=== PATIENT | female | born 1970 | race Caucasian/White ===

== ENCOUNTER → 2022-01-03 13:08 | Outpatient (BNVA) | payer MEDICAID, SELFPAY | PROVIDERS: PCP Internal Medicine; Visit Provider Physician Assistant Surgical ==

== ENCOUNTER → 2022-01-19 11:05 | Outpatient (BNVA) | payer MEDICAID, SELFPAY | PROVIDERS: PCP Internal Medicine; Visit Provider Surgery | DX: Z13.89 Encounter for screening for other disorder (principal) ==

== ENCOUNTER 2022-01-27 09:19 | Outpatient (REF) | payer MEDICAID, SELFPAY ==
--- NOTE | ~2022-01-27 | XR_ITS ---
EXAMINATION: XR chest 2V CLINICAL INFORMATION: Reason for Exam E66.01 - Morbid (severe) obesity due to excess calories COMPARISON: None TECHNIQUE: 2 views of the chest XR/XR chest 2V FINDINGS/IMPRESSION: Clear lungs. No pneumothorax. No pleural effusion. Normal cardiomediastinal silhouette.
[2022-01-27 09:46] LABS: MANUAL DIFF FLAG NO
[2022-01-27 10:19] LABS: Basophils Percent Auto 0.5 % (0-2); Eosinophils Absolute Auto 0.1 X10*3/uL (0.0-0.4); Hematocrit 40.6 % (37.0-47.0); Hemoglobin 13.2 g/dl (12.0-16.0); Imm Gran Abs Auto 0.03 X10*3/uL (0.00-0.03); Imm Gran Pct Auto 0.5 % (0.0-0.4); Lymphocytes Absolute Auto 1.6 X10*3/uL (1.2-4.9); Lymphocytes Percent Auto 28.3 % (20-40); Mean Corpuscular HGB Conc 32.5 g/dl (31.0-35.0); Mean Corpuscular Hemoglobin 31.6 pg (27.0-33.0); Mean Corpuscular Volume 97.1 fL (80.0-98.0); Mean Platelet Volume 9.4 fL (9.4-12.3); Monocytes Absolute Auto 0.5 X10*3/uL (0.1-1.2); Monocytes Percent Auto 8.6 % (2-11); Neutrophils Absolute Auto 3.3 x10*3/uL (2.0-8.3); Neutrophils Percent Auto 60.1 % (45-73); Platelet Count 290 X10*3/uL (160-400); Red Blood Count 4.18 X10*6/uL (4.20-5.50); Red Cell Distribution Width 12.3 % (11.0-16.0); White Blood Count 5.5 X10*3/uL (4.8-10.8)
[2022-01-27 10:34] LABS: Alanine Aminotransferase 47 U/L (0-31); Albumin Level 4.2 g/dL (3.5-5.0); Alkaline Phosphatase 53 U/L (39-117); Anion Gap 12 (12-20); Aspartate Amino Transferase 26 U/L (5-31); Bilirubin Total 0.3 mg/dL (0.0-1.0); Blood Urea Nitrogen 13 mg/dL (9-16); C Reactive Protein 0.69 mg/dL (< or = 0.50); Calcium 9.4 mg/dL (8.4-10.2); Carbon Dioxide 26 mmol/L (22-29); Chloride 109 mmol/L (96-108); Cholesterol 232 mg/dL; Estimated Average Glucose 114 mg/dL; Estimated Glomerular Filt Rate > 60; Glucose Random 125 mg/dL (60-115); HDL Cholesterol 54 mg/dL; Hemoglobin A1c % 5.6 %; Iron 84 mcg/dL (30-160); LDL Cholesterol Calculated 149 mg/dl; Percent Iron Saturation 25 % (15-50); Potassium 4.8 mmol/L (3.3-5.1); Sodium 142 mmol/L (135-145); Total Iron Binding Capacity 332 mcg/dL (228-428); Total Protein 6.5 g/dL (6.5-8.0); Triglycerides 146 mg/dL; Unsaturated Iron Binding 248 ug/dL
[2022-01-27 10:53] LABS: Ferritin 72 ng/mL (10-250); TSH reflex Free T4 1.78 uIU/mL (0.32-4.0)
[2022-01-27 11:05] LABS: Insulin 16 uU/mL (2-29); Vitamin D 25-OH Total 23.8 ng/mL (>30)
[2022-01-29 09:32] LABS: Folate 15.8 ng/mL (> or = 4.0); Vitamin B12 680 pg/mL (200-900)
[2022-01-29 12:41] LABS: Calcium (PTHI) 9.4 mg/dL (8.6-10.4); PTHI 56 pg/mL (16-77)
[2022-01-31 06:31] LABS: Zinc 105 mcg/dL (60-130)
[2022-01-31 17:00] LABS: Vitamin A 58 mcg/dL (38-98)
[2022-02-01 16:42] LABS: Vitamin B1 18 nmol/L (8-30)
== END 2022-01-27 09:20 | disposition home or self-care (01) ==
LOC: HO.LAB 09:19
PROVIDERS: PCP Internal Medicine; Visit Provider Surgery
DX: E66.01 Morbid (severe) obesity due to excess calories (principal); I10 Essential (primary) hypertension; R00.0 Tachycardia, unspecified; K21.9 Gastro-esophageal reflux disease without esophagitis; E78.5 Hyperlipidemia, unspecified; R73.03 Prediabetes
CPT/HCPCS: 36415; 71046; 80053; 80061; 82306; 82607; 82728; 82746; 83036; 83525; 83540; 83970; 84425; 84443; 84590; 84630; 85025; 86140

== ENCOUNTER → 2022-02-05 13:30 | Outpatient (BNVA) | payer OTHER, SELFPAY | PROVIDERS: PCP Internal Medicine; Visit Provider Counselor Mental Health | DX: F32.2 Major depressive disorder, single episode, severe without psychotic features (principal); F50.81 Binge eating disorder | CPT/HCPCS: 90791 ==

== ENCOUNTER → 2022-02-19 08:14 | Outpatient (BNVA) | payer MEDICAID, SELFPAY | PROVIDERS: PCP Internal Medicine; Visit Provider Surgery | DX: Z13.89 Encounter for screening for other disorder (principal) ==

== ENCOUNTER 2022-02-26 13:21 | Outpatient (REF) | payer MEDICAID, SELFPAY ==
--- NOTE | 2022-02-26 13:38 | ECG_ITS ---
Test Reason : OBESITY Blood Pressure : / mmHG Vent. Rate : 068 BPM Atrial Rate : 068 BPM P-R Int : 160 ms QRS Dur : 086 ms QT Int : 402 ms P-R-T Axes : 045 051 035 degrees QTc Int : 427 ms Normal sinus rhythm Normal ECG No previous ECGs available Referred By: Connor Gonzales Electronically Signed By:DANDY RAMIREZ MD
[2022-02-27 14:39] LABS: H Pylori Breath Test Negative (Negative)
== END 2022-02-26 13:22 | disposition home or self-care (01) ==
LOC: HO.LAB 13:21
PROVIDERS: PCP Internal Medicine; Visit Provider Surgery
DX: E66.01 Morbid (severe) obesity due to excess calories (principal); E78.5 Hyperlipidemia, unspecified; I10 Essential (primary) hypertension; K21.9 Gastro-esophageal reflux disease without esophagitis; R00.0 Tachycardia, unspecified; R73.03 Prediabetes
CPT/HCPCS: 36415; 83013; 93005; 97802; 99211

== ENCOUNTER → 2022-03-09 09:25 | Outpatient (BNVA) | payer MEDICAID, SELFPAY | PROVIDERS: PCP Internal Medicine; Visit Provider Physician Assistant Surgical | DX: Z13.89 Encounter for screening for other disorder (principal) ==

== ENCOUNTER 2022-03-22 08:09 | Outpatient (REF) | payer MEDICAID, SELFPAY ==
--- NOTE | ~2022-03-22 | FL_ITS ---
EXAMINATION: XR FLUOROSCOPY UPPER GI WITH AIR CLINICAL INFORMATION: Morbid/severe obesity due to excess calories. COMPARISON: None. TECHNIQUE: Routine upper GI air-contrast study was performed in upright and lying position. FINDINGS: Following oral administration of thick barium and effervescent granules, there is normal propagation of bolus from the oral cavity through the pharynx and esophagus and into the stomach without any evidence of obstruction, narrowing or stricture. On placing patient supine and prone lying, there is moderate gastroesophageal reflux without hiatal hernia. The course, caliber and peristalsis of stomach, duodenal bulb and the CBD are normal. The mucosal pattern of the stomach and the duodenum is normal. FLUOROSCOPY TIME: 1.0 minutes. DOSE AREA PRODUCT: 45.912 uGy-m2 (microgray-meter squared). FL/FL upper GI w air IMPRESSION: Moderate gastroesophageal reflux without hiatal hernia. The rest of the upper GI exam is unremarkable.
--- NOTE | ~2022-03-22 | US_ITS ---
EXAMINATION: US COMPLETE ABDOMEN WITH LIVER ELASTOGRAPHY CLINICAL INFORMATION: Morbid/severe obesity due to excess calories COMPARISON: None. TECHNIQUE: Real-time imaging of the abdominal viscera. Noninvasive ultrasound liver fibrosis assessment is performed using Tabatha ElastPQ point quantification shear wave elastography (2D-SWE) with a C5-2 MHz transducer. Multiple elastography samples are obtained. FINDINGS: PANCREAS: Normal. The visualized pancreatic head and body are normal in appearance. The remainder of the pancreas is obscured from visualization by the overlying bowel gas. ABDOMINAL AORTA: The proximal, middle, and distal aortic segments are normal in caliber. INFERIOR VENA CAVA: Visualized portions are normal. LIVER: The liver demonstrates normal size, contour and echogenicity. No focal lesion or intrahepatic biliary duct dilatation. The right lobe measures 18.1 cm in length. The left lobe measures 13.7 cm in length. Portal flow is hepatopedal Shear wave liver elastography median stiffness is 1.48 m/s (reference: normal median stiffness is 1.3 m/s or less). IQR/median stiffness to assess sampling precision is 0.05 (reference: good quality data set is IQR/median stiffness of 0.15 or less). GALLBLADDER: Normal. The gallbladder is physiologically distended without evidence of stones, sludge, polyps, wall thickening or pericholecystic fluid. COMMON BILE DUCT: Normal in caliber measuring 0.5 cm in diameter. RIGHT KIDNEY: Normal. No hydronephrosis. No renal calculi or focal parenchymal lesions. The kidney measures 10.3 cm in maximum dimension. LEFT KIDNEY: Normal. No hydronephrosis. No renal calculi or focal parenchymal lesions. The kidney measures 12.1 cm in maximum dimension. SPLEEN: Normal. The spleen measures 11.5 cm in maximum dimension. FREE FLUID: None. US/US abdomen comp w elastography IMPRESSION: 1. Mild hepatic steatosis without focal lesion. 2. The rest of the abdominal ultrasound is unremarkable. 3. Liver elastography: Median liver stiffness 1.48 m/s corresponding to cACLD ruled out REFERENCE: Society of Radiologists in Ultrasound Liver Stiffness Thresholds (2019): LIVER STIFFNESS THRESHOLDS: *Liver Stiffness equal or less than 1.3 m/s: High probability of being normal. *Liver Stiffness less than 1.7 m/s: In the absence of other known clinical signs, rules out compensated advanced chronic liver disease. *Liver Stiffness 1.7-2.1 m/s: Suggestive of compensated advanced chronic liver disease but need further test for confirmation. *Liver Stiffness over 2.1 m/s: Rules in compensated advanced chronic liver disease. *Liver Stiffness over 2.4 m/s: Suggestive of clinically significant portal hypertension. QUALITY OF DATA SET: *IQR/Median value equal or less than 0.15 implies a quality data set. *IQR/Median value over 0.15 implies a poor quality data set. SIGNIFICANT CHANGE FROM PRIOR EXAM: Significant change if liver stiffness measurement is 10% or greater from prior exam. OTHER CONSIDERATIONS: The stage of liver fibrosis may be overestimated in the setting of acute hepatitis, liver inflammation, elevated liver function tests, hepatic vascular congestion, obstructive cholestasis, non-fasting state, and infiltrative diseases such as amyloidosis and lymphoma. In some patients with NAFLD, the liver stiffness thresholds for compensated advanced chronic liver disease may be lower. In causes other than viral hepatitis and NAFLD, liver stiffness thresholds are not well established.
== END 2022-03-22 08:10 | disposition home or self-care (01) ==
LOC: HO.US 08:09
PROVIDERS: Visit Provider Surgery
DX: E66.01 Morbid (severe) obesity due to excess calories (principal); K21.9 Gastro-esophageal reflux disease without esophagitis; E78.5 Hyperlipidemia, unspecified; I10 Essential (primary) hypertension; R00.0 Tachycardia, unspecified; R73.03 Prediabetes
CPT/HCPCS: 74246; 76705; 76981

== ENCOUNTER → 2022-03-23 08:24 | Outpatient (BNVA) | payer MEDICAID, SELFPAY | PROVIDERS: PCP Internal Medicine; Visit Provider Surgery | DX: Z13.89 Encounter for screening for other disorder (principal) ==

== ENCOUNTER → 2022-03-27 15:15 | Outpatient (BNVA) | payer MEDICAID, SELFPAY | PROVIDERS: PCP Internal Medicine; Referring Provider Surgery; Visit Provider Dietitian, Registered | DX: E66.01 Morbid (severe) obesity due to excess calories (principal) | CPT/HCPCS: 97803 ==

== ENCOUNTER → 2022-03-28 14:33 | Outpatient (BNVA) | payer OTHER, MEDICAID, SELFPAY | PROVIDERS: PCP Internal Medicine; Visit Provider Counselor Mental Health | DX: F32.2 Major depressive disorder, single episode, severe without psychotic features (principal); F50.81 Binge eating disorder | CPT/HCPCS: 90834 ==

== ENCOUNTER → 2022-04-24 15:39 | Outpatient (BNVA) | payer MEDICAID, SELFPAY | PROVIDERS: PCP Internal Medicine; Referring Provider Surgery; Visit Provider Dietitian, Registered | DX: E66.01 Morbid (severe) obesity due to excess calories (principal); Z68.42 Body mass index [BMI] 45.0-49.9, adult; Z71.3 Dietary counseling and surveillance | CPT/HCPCS: 97803 ==

== ENCOUNTER → 2022-05-18 09:00 | Outpatient (BNVA) | payer OTHER, MEDICAID, SELFPAY | PROVIDERS: PCP Internal Medicine; Referring Provider Physician Assistant Surgical; Visit Provider Counselor Mental Health | DX: F32.2 Major depressive disorder, single episode, severe without psychotic features (principal); E66.01 Morbid (severe) obesity due to excess calories | CPT/HCPCS: 90834 ==

== ENCOUNTER 2022-08-03 15:46 | Emergency (ER) | payer MEDICAID, SELFPAY ==
--- NOTE | ~2022-08-03 | CT_ITS ---
EXAMINATION: CT ANGIOGRAM OF THE CHEST WITH AND WITHOUT CONTRAST (CT PULMONARY ANGIOGRAM FOR PE) CT ABDOMEN AND PELVIS WITH IV CONTRAST CLINICAL INFORMATION: Chest pain, shortness of breath. Left-sided abdominal pain. COMPARISON: No pertinent prior studies are available for comparison. TECHNIQUE: Prior to contrast administration, noncontrast localization images were obtained. Subsequently, multidetector volumetric imaging was performed from the thoracic inlet to the pubic symphysis through the chest, abdomen, and pelvis following the administration of 80 mL Omnipaque 350 intravenous contrast. No contrast reaction reported Sagittal, coronal, and MIP oblique sagittal (through the chest only) reformatted images were obtained on the CT workstation, uploaded to PACS, and reviewed.
--- NOTE | 2022-08-03 16:13 | ECG_ITS ---
Test Reason : UPPER ABDOMINAL PAIN Blood Pressure : / mmHG Vent. Rate : 071 BPM Atrial Rate : 071 BPM P-R Int : 170 ms QRS Dur : 090 ms QT Int : 414 ms P-R-T Axes : 038 039 031 degrees QTc Int : 449 ms Normal sinus rhythm Normal ECG When compared with ECG of 26-FEB-2022 13:41, No significant change was found Referred By: Skyla Reece Electronically Signed By:MICKY SMITH MD
[2022-08-03 17:15] VITALS: BP 140/77; PULSE 74; RESP 18; TEMP 36.1; O2SAT 96; BMI 44.6
[2022-08-03 17:47] LABS: MANUAL DIFF FLAG NO
[2022-08-03 17:49] LABS: Basophils Percent Auto 0.3 % (0-2); Eosinophils Absolute Auto 0.1 X10*3/uL (0.0-0.4); Eosinophils Percent Auto 0.7 % (0-4); Hematocrit 40.7 % (37.0-47.0); Hemoglobin 13.9 g/dl (12.0-16.0); Imm Gran Abs Auto 0.04 X10*3/uL (0.00-0.03); Imm Gran Pct Auto 0.5 % (0.0-0.4); Lymphocytes Absolute Auto 1.6 X10*3/uL (1.2-4.9); Lymphocytes Percent Auto 21.9 % (20-40); Mean Corpuscular HGB Conc 34.2 g/dl (31.0-35.0); Mean Corpuscular Volume 93.8 fL (80.0-98.0); Mean Platelet Volume 9.1 fL (9.4-12.3); Monocytes Absolute Auto 0.7 X10*3/uL (0.1-1.2); Monocytes Percent Auto 8.8 % (2-11); Neutrophils Absolute Auto 5.1 x10*3/uL (2.0-8.3); Neutrophils Percent Auto 67.8 % (45-73); Platelet Count 272 X10*3/uL (160-400); Red Blood Count 4.34 X10*6/uL (4.20-5.50); Red Cell Distribution Width 12.2 % (11.0-16.0); White Blood Count 7.5 X10*3/uL (4.8-10.8)
[2022-08-03 18:05] LABS: Alanine Aminotransferase 25 U/L (0-31); Albumin Level 4.6 g/dL (3.5-5.0); Alkaline Phosphatase 67 U/L (39-117); Anion Gap 15 (12-20); Aspartate Amino Transferase 20 U/L (5-31); Bilirubin Direct < 0.2 mg/dL (0.0-0.5); Bilirubin Total 0.2 mg/dL (0.0-1.0); Blood Urea Nitrogen 13 mg/dL (9-16); Calcium 9.8 mg/dL (8.4-10.2); Carbon Dioxide 24 mmol/L (22-29); Chloride 107 mmol/L (96-108); Creatinine Clr Calc Pharmacy 124.9; Estimated Glomerular Filt Rate > 60; Glucose Random 104 mg/dL (60-115); Lipase 16 U/L (8-78); Magnesium 2.1 mg/dL (1.6-2.6); Potassium 4.3 mmol/L (3.3-5.1); Sodium 142 mmol/L (135-145); Total Protein 6.9 g/dL (6.5-8.0)
[2022-08-03 18:10] LABS: Troponin-I High Sensitivity < 3.5 ng/L (<3.5-17.0)
[2022-08-03 20:00] VITALS: BP 139/75; PULSE 84; TEMP 36.9; O2SAT 98
[2022-08-03 20:18] LABS: Appearance Urine Clear; Color Urine Yellow; Glucose Urine UA Negative (Negative); Leukocyte Esterase Urine Negative (Negative); Nitrite Urine Negative (Negative); Urine Blood Negative (Negative); Urine Ketones Negative (Negative); Urine Protein Negative (Neg-Trace)
--- NOTE | 2022-08-03 21:13 | ED.GENADULT ---
HPI - General Adult General Chief complaint: Back Pain/Injury Stated complaint: upper abd pain/L side back pain Time Seen by Provider: 08/03/22 21:09 Source: patient Mode of arrival: ambulatory Limitations: no limitations History of Present Illness HPI narrative: This is a 51-year-old female past medical history significant for binge eating disorder, depression, PTSD, degenerative disc disease, hyperlipidemia, prediabetes, GERD, hypertension, morbid obesity presenting to the emergency department with multiple complaints. Patient reports that over the past few days she has been experiencing left-sided flank pain nonradiating. She tells me she has a hard time determining whether it is her left flank or her lung. She tells me that she has lung pain that is worse with deep breathing, she also has been experiencing some shortness of breath on exertion over the past few days. Reports that yesterday she was at [facility] however she decided to leave [place] after waiting 17 hours. She is not on control, former smoker, no history of DVT or PE, denies long travel. Tells me father had PE. Patient not on blood thinners. Patient denies chest pain, nausea, vomiting, headache, dizziness, vision changes, abdominal pain and weakness. Related Data Home Medications Medication Instructions Recorded Confirmed ibuprofen 200 mg tablet 200 mg PO Q6H PRN 01/19/22 07/27/22 metoprolol succinate 25 mg 12.5 mg PO DAILY 01/19/22 07/27/22 tablet,extended release 24 hr omeprazole 20 mg capsule,delayed 20 mg PO DAILY 01/19/22 07/27/22 release oxycodone-acetaminophen 5 mg-325 1 tab PO Q6H PRN 01/19/22 07/27/22 mg tablet (Percocet) diazepam 5 mg tablet 2.5 mg PO DAILY PRN anxiety 05/29/22 07/27/22 Previous Rx's Medication Instructions Recorded cholecalciferol (vitamin D3) 125 125 mcg PO DAILY #30 caps 02/02/22 mcg (5,000 unit) capsule ondansetron HCl 4 mg tablet 4 mg PO Q12H nausea and vomiting 07/27/22 #20 tabs pantoprazole 40 mg tablet,delayed 40 mg PO DAILY #30 tabs 07/27/22 release polyethylene glycol 3350 17 gram 17 g PO DAILY #14 ea 07/27/22 oral powder packet (Miralax) sucralfate 100 mg/mL oral 10 ml PO BID #400 mL 07/27/22 suspension cyclobenzaprine 10 mg tablet 10 mg PO BEDTIME PRN muscle spasm 08/04/22 #7 tabs lidocaine 5 % topical patch 1 patch topical DAILY PRN pain #15 08/04/22 ea Allergies Allergy/AdvReac Type Severity Reaction Status Date / Time sertraline [SERTRALINE] Allergy Unknown SLOWED Verified 07/27/22 10:56 BREATHING Review of Systems Review of Systems: Constitutional : No Weight loss, No Fever, No Chills, No Fatigue, No Malaise ENT/Mouth : No sore throat, No Rhinorrhea Eyes: No Eye Pain, No Swelling, No Redness Cardiovascular : No Chest Pain, + SOB, + Dyspnea on Exertion, No Orthopnea, No Edema, No Palpitations Respiratory : No Cough, No Sputum, No Wheezing Gastrointestinal : No Nausea, No Vomiting, No Diarrhea, No Constipation, No abdominal Pain, No Hematochezia, No Melena Genitourinary : No Dysuria, No Urinary Frequency, No Hematuria, Musculoskeletal : No joint pain, No Myalgias, No Joint Swelling Skin : No Skin Lesions, No rash Neuro : No Weakness, No Numbness, No Dizziness, No Headache Psych : No Anxiety/Panic, No Depression All other systems reviewed and are negative Yes all other systems are reviewed and are negative [facility] Past Medical History Attestation statement: The following information was validated with the patient. Source: old records reviewed and nursing notes reviewed Medical History Anxiety Depression DJD (degenerative joint disease) GERD (gastroesophageal reflux disease) History of deviated nasal septum Hyperlipidemia Hypertension Morbid obesity Nephrolithiasis Prediabetes PTSD (post-traumatic stress disorder) Stress incontinence Tachycardia Surgical History Hx of arthroscopic knee surgery Hx of prior ablation treatment Hx of spinal surgery Family History Family History Mother Hypertension Depression Ovarian cancer in remission Father Deep vein thrombosis Hypertension Spine pain Seizure Brother Migraines Son Obesity Son No problems noted. Social History Social History Alcohol intake: never Patient Tobacco Use Status: Former Tobacco user Use of substances other than those prescribed or required for medical reasons: No Advance Directives: No Advance Directives Information Provided: No Patient : No Physical Exam ED Vital Signs: Vital Signs - 24 hr 08/03/22 17:15 08/03/22 20:00 08/03/22 22:00 Temperature 96.9 F 98.4 F 98.5 F Pulse Rate 74 84 73 Respiratory Rate 18 18 Blood Pressure 140/77 H 139/75 124/65 Pulse Oximetry 96 98 98 Oxygen Delivery Method Room Air Room Air Room Air BMI result Body Mass Index 44.6 Course Reevaluation(s) Reevaluation #1: Spoke to bariatric PA: MAKI yesterday at [facility] [place]- Dr. Hill wanted to r/o clot and that is why patient came in today. He would also like a CT of the abdomen and pelvis done with oral contrast. Time: 21:16 Reevaluation #2: CBC within normal limits. Chemistry with no acute electrolyte abnormalities requiring intervention. Troponin negative, EKG nonischemic. Lipase normal. Beta hCG negative. Urine negative. CTA pending to rule out PE. Also obtained CT of the abdomen pelvis to rule out kidney stones. Time: 21:53 Reevaluation #3: Evaluation of pulmonary emboli is limited due to motion, nondiagnostic CTA, VT indeterminate. No focal airspace opacities. Hepatic steatosis and hepatomegaly noted. Colonic diverticulosis but no findings to suspect acute diverticulitis. Small fat containing abdominal wall hernias. At this time will discuss results with patient will educate her on V/Q scan. Patient remains symptomatic, will order V/Q scan in the morning. Sign-out given to Dr. Longoria Time: 01:34 Medical Decision Making [facility] Narrative Medical decision making narrative: [id number] 51-year-old female presents with dyspnea on exertion, pleuritic discomfort with breathing, was sent in by Dr. Gonzales to rule out PE. PE benign Will rule out PE, ACS. Other differentials include costochondritis or viral syndrome. Plan at this time is basic labs, imaging, CTA, troponin, EKG. Medical Records Medical records reviewed: Yes I reviewed the patient's medical records. Lab Data Lab results reviewed: Yes I reviewed the patient's lab results. Result diagrams: 08/03/22 17:34 08/03/22 17:34 Labs: Lab Results 08/03/22 08/03/22 08/03/22 Range/Units 17:34 17:34 17:34 WBC 7.5 (4.8-10.8) X10*3/uL RBC 4.34 (4.20-5.50) X10*6/uL Hgb 13.9 (12.0-16.0) g/dl Hct 40.7 (37.0-47.0) % MCV 93.8 (80.0-98.0) fL MCH 32.0 (27.0-33.0) pg MCHC 34.2 (31.0-35.0) g/dl RDW 12.2 (11.0-16.0) % Plt Count 272 (160-400) X10*3/uL MPV 9.1 L (9.4-12.3) fL Immature Gran % (Auto) 0.5 H (0.0-0.4) % Neut % (Auto) 67.8 (45-73) % Lymph % (Auto) 21.9 (20-40) % [place] % (Auto) 8.8 (2-11) % Eos % (Auto) 0.7 (0-4) % Baso % (Auto) 0.3 (0-2) % Lymph # (Auto) 1.6 (1.2-4.9) X10*3/uL [place] # (Auto) 0.7 (0.1-1.2) X10*3/uL Eos # (Auto) 0.1 (0.0-0.4) X10*3/uL Baso # (Auto) 0.0 (0.0-0.2) X10*3/uL Abs Immat Gran (auto) 0.04 H (0.00-0.03) X10*3/uL Absolute Neuts (auto) 5.1 (2.0-8.3) x10*3/uL Absolute Nucleated RBC 0.000 (0.0-0.012) X10*3/uL Nucleated RBC % (auto) 0.0 (0.0-0.2) /100WBC Sodium 142 (135-145) mmol/L Potassium 4.3 (3.3-5.1) mmol/L Chloride 107 (96-108) mmol/L Carbon Dioxide 24 (22-29) mmol/L Anion Gap 15 (12-20) BUN 13 (9-16) mg/dL Creatinine 0.73 (0.5-1.4) mg/dL Estim Creat Clear Calc 124.9 Estimated GFR > 60 Random Glucose 104 (60-115) mg/dL Calcium 9.8 (8.4-10.2) mg/dL Magnesium 2.1 (1.6-2.6) mg/dL Total Bilirubin 0.2 (0.0-1.0) mg/dL Direct Bilirubin < 0.2 (0.0-0.5) mg/dL AST 20 (5-31) U/L ALT 25 (0-31) U/L Alkaline Phosphatase 67 (39-117) U/L Troponin I High Sens < 3.5 (<3.5-17.0) ng/L Total Protein 6.9 (6.5-8.0) g/dL Albumin 4.6 (3.5-5.0) g/dL Lipase 16 (8-78) U/L Beta HCG, Quant < 2 mIU/mL Urine Color Urine Appearance Urine pH (5.0-9.0) Ur Specific [place] (1.005-1.025) Urine Protein (Neg-Trace) mg/dL Urine Glucose (UA) (Negative) mg/dL Urine Ketones (Negative) mg/dL Urine Blood (Negative) Urine Nitrite (Negative) Ur Leukocyte Esterase (Negative) 08/03/22 Range/Units 20:11 WBC (4.8-10.8) X10*3/uL RBC (4.20-5.50) X10*6/uL Hgb (12.0-16.0) g/dl Hct (37.0-47.0) % MCV (80.0-98.0) fL MCH (27.0-33.0) pg MCHC (31.0-35.0) g/dl RDW (11.0-16.0) % Plt Count (160-400) X10*3/uL MPV (9.4-12.3) fL Immature Gran % (Auto) (0.0-0.4) % Neut % (Auto) (45-73) % Lymph % (Auto) (20-40) % [place]alier % (Auto) (2-11) % Eos % (Auto) (0-4) % Baso % (Auto) (0-2) % Lymph # (Auto) (1.2-4.9) X10*3/uL [place] # (Auto) (0.1-1.2) X10*3/uL Eos # (Auto) (0.0-0.4) X10*3/uL Baso # (Auto) (0.0-0.2) X10*3/uL Abs Immat Gran (auto) (0.00-0.03) X10*3/uL Absolute Neuts (auto) (2.0-8.3) x10*3/uL Absolute Nucleated RBC (0.0-0.012) X10*3/uL Nucleated RBC % (auto) (0.0-0.2) /100WBC Sodium (135-145) mmol/L Potassium (3.3-5.1) mmol/L Chloride (96-108) mmol/L Carbon Dioxide (22-29) mmol/L Anion Gap (12-20) BUN (9-16) mg/dL Creatinine (0.5-1.4) mg/dL Estim Creat Clear Calc Estimated GFR Random Glucose (60-115) mg/dL Calcium (8.4-10.2) mg/dL Magnesium (1.6-2.6) mg/dL Total Bilirubin (0.0-1.0) mg/dL Direct Bilirubin (0.0-0.5) mg/dL AST (5-31) U/L ALT (0-31) U/L Alkaline Phosphatase (39-117) U/L Troponin I High Sens (<3.5-17.0) ng/L Total Protein (6.5-8.0) g/dL Albumin (3.5-5.0) g/dL Lipase (8-78) U/L Beta HCG, Quant mIU/mL Urine Color Yellow Urine Appearance Clear Urine pH 6.0 (5.0-9.0) Ur Specific [place] 1.010 (1.005-1.025) Urine Protein Negative (Neg-Trace) mg/dL Urine Glucose (UA) Negative (Negative) mg/dL Urine Ketones Negative (Negative) mg/dL Urine Blood Negative (Negative) Urine Nitrite Negative (Negative) Ur Leukocyte Esterase Negative (Negative) ECG Data Attestation: I personally reviewed and interpreted this ECG as follows: Prior ECG tracings: available for review Interpretation: Ventricular rate of 71, RI normal, QRS normal, QT/QTC normal. EKG with normal sinus rhythm no ST elevations or inversions concerning for ischemia. No significant changes when compared to February 2022. Critical Care Time Critical Care Time Critical Care Time: Yes Total Critical Care Time: 35 Attestation: I attest to this time spent taking care of the patient, obtaining history, physical, reviewing labs, imaging, speaking to my attending, speaking to specialist. Discharge Plan Discharge Clinical Impression: Left flank pain, Pleuritic pain, Shortness of breath Patient Disposition: Home, Self-Care Instructions: Chest Pain (ED), Flank Pain (ED), Shortness of Breath (ED) Additional Instructions: Take your medications as prescribed. If you were prescribed antibiotics today, it is important that you take your medication to their entirety, do not skip any doses, do not finish them early. Follow-up with your primary care provider this week. Please follow up with bariatric Dr. Gonzales Return to the emergency department with new or worsening symptoms. Such as fevers, chills, chest pain, shortness of breath, nausea, vomiting, dizziness, headache, vision changes, lethargy In case of emergency call 911 Prescriptions: New cyclobenzaprine 10 mg tablet 10 mg PO BEDTIME PRN (Reason: muscle spasm) Qty: 7 0RF lidocaine 5 % adhesive patch,medicated 1 patch topical DAILY PRN (Reason: pain) Qty: 15 0RF Rx Instructions: leave on most painful area for up to 12 hrs No Action cholecalciferol (vitamin D3) 125 mcg (5,000 unit) capsule 125 mcg PO DAILY Qty: 30 2RF omeprazole 20 mg capsule,delayed release(DR/EC) 20 mg PO DAILY oxycodone-acetaminophen [Percocet] 5-325 mg tablet 1 tab PO Q6H PRN ibuprofen 200 mg tablet 200 mg PO Q6H PRN metoprolol succinate 25 mg tablet extended release 24 hr 12.5 mg PO DAILY diazepam 5 mg tablet 2.5 mg PO DAILY PRN (Reason: anxiety) pantoprazole 40 mg tablet,delayed release (DR/EC) 40 mg PO DAILY Qty: 30 2RF sucralfate 100 mg/mL suspension 10 ml PO BID Qty: 400 2RF ondansetron HCl 4 mg tablet 4 mg PO Q12H Qty: 20 0RF polyethylene glycol 3350 [Miralax] 17 gram powder in packet 17 g PO DAILY Qty: 14 0RF Rx Instructions: Mix each packet with 8oz of water and do 7 packets on 08/07/22 and another 7 packets on 08/08/22 Referrals: Gin Amaro MD [Primary Care Provider] - 2 days Connor Gonzales MD [Physician] - 1 week Stand Alone Forms: Work/School Release
[2022-08-03 21:35] LABS: HCG Quantitative < 2 mIU/mL
--- NOTE | 2022-08-03 21:45 | PC.NURSE ---
Pt c/o sharp pleuritic pain left lower back/LUQ. radiates through me . worse with inspiration and bending over. denies CP and palpitations. LS CTA> skin pwd. ambulatory w/o diff or sob. awaits CT
[2022-08-03 22:00] VITALS: BP 124/65; PULSE 73; RESP 18; TEMP 36.9; O2SAT 98
[2022-08-03] MEDS: Diatrizoate Meglumine, Sodium 30 ML SOLUTION PO (22:07)
[2022-08-03] MEDS: Morphine Sulfate 2 MG/ML CARTRIDGE IVPUSH (22:44)
[2022-08-04] MEDS: iohexoL 350 MG/ML 100 ML INFUS..BTL IV (00:35)
[2022-08-04] MEDS: Morphine Sulfate 2 MG/ML CARTRIDGE IVPUSH (02:06)
[2022-08-04 02:33] VITALS: BP 119/62; PULSE 75; RESP 18; TEMP 36.7; O2SAT 96
[2022-08-04 03:32] VITALS: BP 112/52; PULSE 91; RESP 18; TEMP 36.6; O2SAT 95
[2022-08-04 05:47] VITALS: BP 116/66; PULSE 90; RESP 18; O2SAT 97
[2022-08-04 08:19] VITALS: BP 123/82; PULSE 72; RESP 16; O2SAT 96
[2022-08-04] MEDS: Morphine Sulfate 2 MG/ML CARTRIDGE 1 MG IVPUSH (08:22)
--- NOTE | 2022-08-04 09:20 | PC.NURSE ---
Pt medicated for pain. Off unit for lung scan
== END 2022-08-04 11:48 | disposition home or self-care (01) ==
PROVIDERS: Emergency Medicine; Physician Assistant; Emergency Provider Student in an Organized Health Care Education/Training Program; PCP Internal Medicine
DX: M54.50 Low back pain, unspecified (principal); R07.81 Pleurodynia; R10.9 Unspecified abdominal pain; R06.02 Shortness of breath; Z20.822 Contact with and (suspected) exposure to COVID-19; Z79.899 Other long term (current) drug therapy
CPT/HCPCS: 36415; 71275; 74177; 78580; 80048; 80076; 81003; 83690; 83735; 84484; 84702; 85025; 93005; 96374; 96376; 99285; A9540; J2270; Q9967

== ENCOUNTER 2022-08-09 06:04 | Inpatient (IN) | payer MEDICAID, SELFPAY ==
[2022-07-31 11:20] LABS: MANUAL DIFF FLAG NO
[2022-07-31 12:02] LABS: Basophils Percent Auto 0.3 % (0-2); Eosinophils Absolute Auto 0.1 X10*3/uL (0.0-0.4); Eosinophils Percent Auto 1.2 % (0-4); Hematocrit 42.5 % (37.0-47.0); Hemoglobin 14.2 g/dl (12.0-16.0); Imm Gran Abs Auto 0.04 X10*3/uL (0.00-0.03); Imm Gran Pct Auto 0.6 % (0.0-0.4); Lymphocytes Absolute Auto 1.8 X10*3/uL (1.2-4.9); Lymphocytes Percent Auto 27.3 % (20-40); Mean Corpuscular HGB Conc 33.4 g/dl (31.0-35.0); Mean Corpuscular Hemoglobin 31.9 pg (27.0-33.0); Mean Corpuscular Volume 95.5 fL (80.0-98.0); Mean Platelet Volume 9.6 fL (9.4-12.3); Monocytes Absolute Auto 0.6 X10*3/uL (0.1-1.2); Monocytes Percent Auto 9.4 % (2-11); Neutrophils Absolute Auto 3.9 x10*3/uL (2.0-8.3); Neutrophils Percent Auto 61.2 % (45-73); Platelet Count 285 X10*3/uL (160-400); Red Blood Count 4.45 X10*6/uL (4.20-5.50); Red Cell Distribution Width 12.1 % (11.0-16.0); White Blood Count 6.4 X10*3/uL (4.8-10.8)
[2022-07-31 12:08] LABS: Prothrombin Time 11.7 SEC (10.0-13.1)
[2022-07-31 12:11] LABS: Partial Thromboplastin Time 32.7 SEC (26.0-36.4)
[2022-07-31 12:13] LABS: Estimated Average Glucose 105 mg/dL; Hemoglobin A1c % 5.3 %
[2022-07-31 12:32] LABS: Alanine Aminotransferase 18 U/L (0-31); Albumin Level 4.5 g/dL (3.5-5.0); Alkaline Phosphatase 63 U/L (39-117); Anion Gap 17 (12-20); Aspartate Amino Transferase 15 U/L (5-31); Bilirubin Total 0.5 mg/dL (0.0-1.0); Blood Urea Nitrogen 15 mg/dL (9-16); C Reactive Protein 0.83 mg/dL (< or = 0.50); Calcium 9.5 mg/dL (8.4-10.2); Carbon Dioxide 25 mmol/L (22-29); Chloride 104 mmol/L (96-108); Cholesterol 216 mg/dL; Estimated Glomerular Filt Rate > 60; Glucose Random 110 mg/dL (60-115); HDL Cholesterol 58 mg/dL; LDL Cholesterol Calculated 136 mg/dl; Potassium 4.6 mmol/L (3.3-5.1); Sodium 141 mmol/L (135-145); Total Protein 6.9 g/dL (6.5-8.0); Triglycerides 112 mg/dL
[2022-07-31 12:52] LABS: TSH reflex Free T4 1.59 uIU/mL (0.32-4.0)
[2022-07-31 13:23] LABS: Insulin 12 uU/mL (2-29)
[2022-08-07 11:08] VITALS: BMI 43.9
[2022-08-08 13:05] LABS: COVID-19 Test Negative (Negative); IDNOW Serial# 55D5AD1C
--- NOTE | 2022-08-08 14:36 | HO.ANESPROP2 ---
Documented by User: Esperanza Colby NP 08/08/22 14:38 HPI - Anesthesia Eval Consult details Narrative: 51yo F for Gastrectomy Sleeve, EGD, possible diaphragmatic hernia, possible ventral hernia, possible open PMFSH Active Problems Active Problems: All Active Problems (Updated 08/07/22 @ 15:09 by Luiza Lima RN) Vitamin D deficiency (Acute) Major depress dis, severe (Acute) Binge eating disorder (Acute) DJD (degenerative joint disease) (Acute) Stress incontinence (Acute) PTSD (post-traumatic stress disorder) (Acute) Anxiety (Acute) Depression (Acute) Nephrolithiasis (Acute) Prediabetes (Acute) Hyperlipidemia (Acute) GERD (gastroesophageal reflux disease) (Acute) Tachycardia (Acute) Hypertension (Acute) Morbid obesity (Acute) Past Medical History Medical History (Updated 08/09/22 @ 08:02 by Connor Gonzales MD) Anxiety Depression DJD (degenerative joint disease) GERD (gastroesophageal reflux disease) History of deviated nasal septum Hyperlipidemia Hypertension Morbid obesity Nephrolithiasis NIK (obstructive sleep apnea) Prediabetes PTSD (post-traumatic stress disorder) Stress incontinence Tachycardia Family History Family History Mother Hypertension Depression Ovarian cancer in remission Father Deep vein thrombosis Hypertension Spine pain Seizure Brother Migraines Son Obesity Son No problems noted. Surgical History Surgical History (Updated 08/09/22 @ 10:14 by Connor Gonzales MD) Hx of arthroscopic knee surgery Hx of prior ablation treatment Hx of spinal surgery Social History Social History Are you a primary anesthesiologist and critical care to a significant other at home: No Do you presently have visiting nurse or other home services: No Alcohol intake: never Patient Tobacco Use Status: Former Tobacco user Quit Date: 10 yrs ago Tobacco use type: Cigarette Use of substances other than those prescribed or required for medical reasons: No Have you been hit, kicked, punched, or otherwise hurt by someone within the past year? If so, by whom?: No Are you DNR?: No Advance Directives: No Advance Directives Information Provided: Yes Advance Directives on File: No Recently lost weight without trying: No How much weight loss: 14-23 pounds Eating poorly because of decreased appetite: No Nutrition screen score: 2 Nutrition Risks: No Nutritional Risk Patient : No Meds Allergies Allergy/AdvReac Type Severity Reaction Status Date / Time sertraline [SERTRALINE] Allergy Unknown SLOWED Verified 08/07/22 11:06 BREATHING Home Medications Medication Instructions Recorded Confirmed Last Taken Type ibuprofen 200 mg tablet 200 mg PO Q6H PRN Pain 01/19/22 08/07/22 07/22/22 History metoprolol succinate 25 mg 12.5 mg PO DAILY 01/19/22 08/07/22 07/22/22 History tablet,extended release 24 hr omeprazole 20 mg capsule,delayed 20 mg PO DAILY 01/19/22 08/07/22 07/22/22 History release oxycodone-acetaminophen 5 mg-325 1 tab PO Q6H PRN Pain 01/19/22 08/07/22 08/08/22 History mg tablet (Percocet) diazepam 5 mg tablet 2.5 mg PO DAILY PRN anxiety 05/29/22 08/07/22 08/08/22 History Exam Exam Date and Time: August 08, 2022 1436 Height,Weight and Vital Signs: Height 5 ft 6 in Weight 123.377 kg Pertinent Lab Results Pertinent Lab Results: Laboratory Tests 07/31/22 07/31/22 07/31/22 11:13 11:19 11:19 WBC 6.4 RBC 4.45 Hgb 14.2 Hct 42.5 MCV 95.5 MCH 31.9 MCHC 33.4 RDW 12.1 Plt Count 285 MPV 9.6 Immature Gran % (Auto) 0.6 H Neut % (Auto) 61.2 Lymph % (Auto) 27.3 [place] % (Auto) 9.4 Eos % (Auto) 1.2 Baso % (Auto) 0.3 Lymph # (Auto) 1.8 [place] # (Auto) 0.6 Eos # (Auto) 0.1 Baso # (Auto) 0.0 Abs Immat Gran (auto) 0.04 H Absolute Neuts (auto) 3.9 Absolute Nucleated RBC 0.000 Nucleated RBC % (auto) 0.0 PT 11.7 INR 1.0 APTT 32.7 Sodium Potassium Chloride Carbon Dioxide Anion Gap BUN Creatinine Estim Creat Clear Calc Estimated GFR Random Glucose Estimat Average Glucose Hemoglobin A1c % Insulin Level Calcium Total Bilirubin AST ALT Alkaline Phosphatase C-Reactive Protein Total Protein Albumin Triglycerides Cholesterol LDL Cholesterol, Calc HDL Cholesterol TSH COVID-19 ([facility]) COVID-19 Clin Com Blood Type A Positive Antibody Screen NEGATIVE 07/31/22 07/31/22 08/08/22 11:19 11:19 12:33 WBC RBC Hgb Hct MCV MCH MCHC RDW Plt Count MPV Immature Gran % (Auto) Neut % (Auto) Lymph % (Auto) [place] % (Auto) Eos % (Auto) Baso % (Auto) Lymph # (Auto) [place] # (Auto) Eos # (Auto) Baso # (Auto) Abs Immat Gran (auto) Absolute Neuts (auto) Absolute Nucleated RBC Nucleated RBC % (auto) PT INR APTT Sodium 141 Potassium 4.6 Chloride 104 Carbon Dioxide 25 Anion Gap 17 BUN 15 Creatinine 0.66 Estim Creat Clear Calc TNP Estimated GFR > 60 Random Glucose 110 Estimat Average Glucose 105 Hemoglobin A1c % 5.3 Insulin Level 12 Calcium 9.5 Total Bilirubin 0.5 AST 15 D ALT 18 Alkaline Phosphatase 63 C-Reactive Protein 0.83 H Total Protein 6.9 Albumin 4.5 Triglycerides 112 Cholesterol 216 LDL Cholesterol, Calc 136 HDL Cholesterol 58 TSH 1.59 COVID-19 ([facility]) Negative COVID-19 Clin Com See Note Blood Type Antibody Screen Narrative Narrative: EKG 07/2022 Vent. Rate : 071 BPM ? ? Atrial Rate : 071 BPM ?? P-R Int : 170 ms? QRS Dur : 090 ms ? ? QT Int : 414 ms ? ? ? P-R-T Axes : 038 039 031 degrees ?? QTc Int : 449 ms ? Normal sinus rhythm Normal ECG When compared with ECG of 26-FEB-2022 13:41, No significant change was found Assessment and Plan Assessment Anesthesia Assessment: Chart Reviewed Documented by User: Cb Santana MD 08/09/22 14:36 HPI - Anesthesia Eval Consult details Narrative: 51yo F for Gastrectomy Sleeve, EGD, possible diaphragmatic hernia, possible ventral hernia, possible open back keen radiation to LE , left more than right . [facility] Past Medical History Medical History (Updated 08/09/22 @ 08:02 by Connor Gonzales MD) Anxiety Depression DJD (degenerative joint disease) GERD (gastroesophageal reflux disease) History of deviated nasal septum Hyperlipidemia Hypertension Morbid obesity Nephrolithiasis NIK (obstructive sleep apnea) Prediabetes PTSD (post-traumatic stress disorder) Stress incontinence Tachycardia Family History Family History Mother Hypertension Depression Ovarian cancer in remission Father Deep vein thrombosis Hypertension Spine pain Seizure Brother Migraines Son Obesity Son No problems noted. Family history of problems with anesthesia: No Surgical History Surgical History (Updated 08/09/22 @ 10:14 by Connor Gonzales MD) Hx of arthroscopic knee surgery Hx of prior ablation treatment Hx of spinal surgery History of Problems with Anesthesia: No Social History Social History Are you a primary anesthesiologist and critical care to a significant other at home: No Do you presently have visiting nurse or other home services: No Alcohol intake: never Patient Tobacco Use Status: Former Tobacco user Quit Date: 10 yrs ago Tobacco use type: Cigarette Use of substances other than those prescribed or required for medical reasons: No Have you been hit, kicked, punched, or otherwise hurt by someone within the past year? If so, by whom?: No Are you DNR?: No Advance Directives: No Advance Directives Information Provided: Yes Advance Directives on File: No Recently lost weight without trying: No How much weight loss: 14-23 pounds Eating poorly because of decreased appetite: No Nutrition screen score: 2 Nutrition Risks: No Nutritional Risk Patient : No Meds Allergies Allergy/AdvReac Type Severity Reaction Status Date / Time sertraline [SERTRALINE] Allergy Unknown SLOWED Verified 08/07/22 11:06 BREATHING Home Medications Medication Instructions Recorded Confirmed Last Taken Type ibuprofen 200 mg tablet 200 mg PO Q6H PRN Pain 01/19/22 08/07/22 07/22/22 History metoprolol succinate 25 mg 12.5 mg PO DAILY 01/19/22 08/07/22 07/22/22 History tablet,extended release 24 hr omeprazole 20 mg capsule,delayed 20 mg PO DAILY 01/19/22 08/07/22 07/22/22 History release oxycodone-acetaminophen 5 mg-325 1 tab PO Q6H PRN Pain 01/19/22 08/07/22 08/08/22 History mg tablet (Percocet) diazepam 5 mg tablet 2.5 mg PO DAILY PRN anxiety 05/29/22 08/07/22 08/08/22 History Exam Airway Mallampati Class: III TM Dist: >3cm Neck ROM: Full Loose/Missing/Broken Teeth: Yes (Chipped , fillings ) Heart: S1,S2 Lungs: b/l breath sounds Assessment and Plan Assessment Anesthesia Assessment: Anesthesia Plan Discussed Final Anesthetic Review Family History of Problems with Anesthesia: No History of Problems with Anesthesia: No NPO: Yes Final Preanesthetic Review: Meds/Allgs Chart Reviewed, Consent Obtained/Reviewed and Anes Risks/Benef Reviewed Patient Risk: Intermediate Procedure Risk: Intermediate Anesthetic Plan Anesthetic Plan: GA Disposition: Standard PACU
[2022-08-09] VITALS (21 sets, daily range): BP systolic 125–164; BP diastolic 66–89; PULSE 66–96; RESP 14–22; TEMP 36.6–37.2; O2SAT 93–100
--- OUTSIDE RECORDS SUMMARY | 2022-08-09 06:10 | XMS_ITS | Continuity of Care Document ---
:1970 Author Organization [facility] Address [address] [place] [address]- Care Team Providers Name Role Phone Gin Amaro MD Primary Care Physician [facility] Date[facility]): 10/27[facility]19 - 12/02/[address] [address]- [facility] Attending Physician: Cari Jones MD Admitting Physician: Cari Jones MD Referring Physician: Cari Jones MD Allergies, Adverse Reactions, Alerts Substance Reaction Severity Status sertraline she couldn't get enough air and got dizzy Active Immunizations Given and Recorded Vaccine Date Status Refusal Reason influenza virus vaccine, inactivated 07/22/19 Given FluLaval (oldterm)1 10/14/12 Given Measles/Mumps/Rubella Virus Vaccine2 06/24/12 Given hepatitis B adult vaccine3 06/24/12 Given hepatitis B adult vaccine4 05/26/12 Given tetanus/diphtheria/pertussis, acel(Tdap)5 05/26/12 Given Tetanus Toxoid Vaccine (oldterm) 03/16/02 Given 1Admin Note: vis date 04/28/201203050Kzvyo Note: Gave the VIS [id number] Note: 2nd Hep B Gave the VIS [id number] Note: VIS 11/29/20115Admin Note: VIS...11/20/2011 Medications Carafate 1 gm oral tablet 1 Gm, 1, tablet, By Mouth, 4 times a day, # 120 tablet, Refills 0, Tot. Refills 0, Maintenance, 10/25/19 13:51:00 EST, Route to Pharmacy Electronically, [facility] - [address], 168, cm, 10/25/19 10:22:00 EST, Height, 127.2, kg, 10/25/19 10:22:00... Start Date: 10/25/19 Status: OrderedCarafate 1 gm oral tablet 1 Gm, 1, tablet, By Mouth, 4 times a day, # 120 tablet, Refills 0, Tot. Refills 0, Maintenance, 10/25/19 14:14:00 EST, Route to Pharmacy Electronically, [facility] - [address], 168, cm, 10/25/19 10:22:00 EST, Height, 127.2, kg, 10/25/19 10:22:00 EST... Start Date: 10/25/19 Status: Orderedferrous sulfate 325 mg oral enteric coated tablet 325 mg, 1, tablet, By Mouth, 3 times a day, start 1 per day and increase as tolerated. Take with Vitamin C to help absorption, # 90 tablet, Refills 3, Tot. Refills 3, Maintenance, 10/12/19 11:21:22 EST, Route to Pharmacy Electronically, [facility] - [facility]... Start Date: 10/12/19 Status: OrderedGinkgo Biloba oral capsule 0 Refills, Maintenance, 11/16/15 10:51:49 Start Date: 11/16/15 Status: Orderedibuprofen 200 mg oral tablet See Instructions, 2-3 tabs twice a day, Refills 0, Maintenance, 03/27/18 11:53:32 EDT, Instructions Replace Required Details Start Date: 03/27/18 Status: OrderedMetoprolol Tartrate 25 mg oral tablet 1 tablet = 25 mg, By Mouth, Once, PRN Other, Take 1 pill as needed for palpitations, # 30 tablet, 3 Refills, Soft Stop, 05/06/19 11:20:07 EDT, Tablet Start Date: 05/06/19 Status: Orderedomeprazole 20 mg oral enteric coated capsule 1 capsule = 20 mg, By Mouth, 2 times a day, before a meal, # 42 capsule, 0 Refills, Maintenance, 10/25/19 14:14:00 EST, EC Capsule, [facility] - [address], 168, cm, 10/25/19 10:22:00 EST, Height, 127.2, kg, 10/25/19 10:22:00 EST, Dry Weight Start Date: 10/25/19 Stop Date: 11/15/19 Status: OrderedVitamin C 250 mg oral tablet 1 tablet = 250 mg, By Mouth, 3 times a day, To take with iron, # 90 tablet, 3 Refills, Maintenance, 10/12/19 11:22:08 EST, Tablet, [facility] - [facility], 167, cm, 10/12/19 11:19:00 EST, Height, 124, kg, 06/15/19 8:35:08 EDT, Dry Weight Start Date: 10/12/19 Status: Ordered Problem List Condition Effective Dates Status Health Status Informant Anxiety(Confirmed) 12/19/12 Active Anxiety associated with 11/18/12 Active depression(Confirmed) Morbid obesity with BMI of 45.0-49.9, Active adult(Confirmed) Chronic low back pain(Confirmed) 12/03/06 Active Diverticulosis(Confirmed) Active GERD (gastroesophageal reflux Active disease)(Confirmed) Herniation of nucleus Active pulposus(Confirmed)1 Hypercholesterolemia(Confirmed) Active Impaired fasting glucose(Confirmed) Active Frequent urination(Confirmed) Active Anxiety associated with Active depression(Confirmed) Sleep apnea(Confirmed) 02/15/14 Active Supraventricular Active tachycardia(Confirmed)2 1L4-5 Dr. Fiore at [facility] Dec. 05/p ablation 09/28 Dr. Romero Social History Social History Type Response Smoking Status Former smoker; Started at ag e: 21; Stopped at age: 41; entered on: 06/09/15 Sex
--- OUTSIDE RECORDS SUMMARY | 2022-08-09 06:10 | XMS_ITS | Continuity of Care Document ---
:1970 Author Organization [facility] Address [address] [place] [address]- Care Team Providers Name Role Phone Gin Amaro MD Primary Care Physician [facility]counter [facility] Date(s): 01/08/20 - 08/06/20 [facility] [address] [address]- [facility] Attending Physician: Mora Horn MD Admitting Physician: Mora Horn MD Allergies, Adverse Reactions, Alerts Substance Reaction [...] (oldterm) 03/16/02 Given 1Admin Note: vis date 04/28/201245050Itrsw Note: Gave the VIS [id number] Note: 2nd Hep B Gave the VIS [id number] Note: VIS 11/29/20115Admin Note: VIS...11/20/2011 Medications Carafate 1 gm oral tablet 1 Gm, 1, tablet, By Mouth, 4 times a day, # 120 tablet, Refills 0, Tot. Refills 0, Maintenance, 10/25/19 13:51:00 EST, Route to Pharmacy Electronically, [facility] - [address], 168, cm, 10/25/19 10:22:00 EST, Height, [...] Impaired fasting glucose(Confirmed) Active Frequent urination(Confirmed) Active Left knee pain(Confirmed) Active Anxiety associated with Active depression(Confirmed) Sleep apnea(Confirmed) 02/15/14 Active Supraventricular Active tachycardia(Confirmed)2 1L4-5 Dr. Fiore at [facility] Dec. 05/p ablation 09/28 Dr. Romero Social History Social History Type Response Smoking Status Former smoker; Started at ag e: 21; Stopped at age: 41; entered on: 06/09/15 Sex
--- OUTSIDE RECORDS SUMMARY | 2022-08-09 06:10 | XMS_ITS | Continuity of Care Document ---
:1970 Author Organization [facility] Address [address] [place] [address]- Care Team Providers Name Role Phone Gin Amaro MD Primary Care Physician [place] [facility] [place]): 10/04[place]20 - 11/23/20 [facility] [address] [place] [address] Attending Physician: Yadiel Tao DO Admitting Physician: Yadiel Tao DO Referring Physician: Gin Amaro MD Allergies, Adverse Reactions, Alerts Substance Reaction [...] (oldterm) 03/16/02 Given 1Admin Note: vis date 04/28/201271131Yubgf Note: Gave the VIS [id number] Note: 2nd Hep B Gave the VIS [id number] Note: VIS 11/29/20115Admin Note: VIS...11/20/2011 Medications Carafate [...] AID - 1-5... Start Date: 10/12/19 Status: OrderedVitamin C 250 mg oral tablet 1 tablet = 250 mg, By Mouth, 3 times a day, To take with iron, # 90 tablet, 3 Refills, Maintenance, 10/12/19 11:22:08 EST, Tablet, [facility] - [address], 167, cm, 10/12/19 11:19:00 EST, Height, 124, kg, 06/15/19 8:35:08 EDT, Dry Weight Start Date: 10/12/19 Status: Ordered Problem List Condition Effective Dates Status Health Status Informant Anxiety associated with 11/18/12 Active depression(Confirmed) Morbid obesity with BMI of 45.0-49.9, Active adult(Confirmed) Chronic low back pain(Confirmed) 12/03/06 Active Diverticulosis(Confirmed) Active GERD (gastroesophageal reflux Active disease)(Confirmed) Herniation of nucleus Active pulposus(Confirmed)1 Hypercholesterolemia(Confirmed) Active Impaired fasting glucose(Confirmed) Active Frequent urination(Confirmed) Active Left knee pain(Confirmed) Active Anxiety associated with Active depression(Confirmed) Sleep apnea(Confirmed) 02/15/14 Active Supraventricular Active tachycardia(Confirmed)2 1L4-5 Dr. Fiore at [place] [place] Dec. 05/p ablation 09/28 Dr. Romero Social History Social History Type Response Smoking Status Former smoker; Started at ag e: 21; Stopped at age: 41; entered on: 06/09/15 Sex
--- OUTSIDE RECORDS SUMMARY | 2022-08-09 06:10 | XMS_ITS | Continuity of Care Document ---
:1970 Author Organization [facility] Address [address] [place] [address]- Care Team Providers Name Role Phone Gin Amaro MD Primary Care Physician Encounter [facility] Date(s): 08/26/20 - 08/26/[address] [address]- [facility] Discharge Disposition: A-D/C Home Attending Physician: Ananda Ash MD Admitting Physician: Ananda Ash MD Referring Physician: Not on Staff, Referring MD Allergies, Adverse Reactions, Alerts Substance Reaction [...] (oldterm) 03/16/02 Given 1Admin Note: vis date 04/28/[id number] Note: Gave the VIS [id number] Note: 2nd Hep B Gave the VIS [id number] Note: VIS 11/29/20115Admin Note: VIS...11/20/2011 Medications Carafate 1 gm oral tablet 1 Gm, 1, tablet, By Mouth, 4 times a day, # 120 tablet, Refills 0, Tot. Refills 0, Maintenance, 10/25/19 13:51:00 EST, Route to Pharmacy Electronically, [facility] [address], 168, cm, 10/25/19 10:22:00 EST, Height, 127.2, kg, 10/25/19 10:22:00... Start Date: 10/25/19 Status: OrderedCarafate 1 gm oral tablet 1 Gm, 1, tablet, By Mouth, 4 times a day, # 120 tablet, Refills 0, Tot. Refills 0, Maintenance, 10/25/19 14:14:00 EST, [facility] to [facility], [email or web address] [address], 168, cm, [...] 10/12/19 11:21:22 EST, Route to Pharmacy Electronically, [email or web address] - [facility]... Start Date: 10/12/19 Status: [...] 3 Refills, Maintenance, 10/12/19 11:22:08 EST, Tablet, [facility] - [facility], 167, cm, 10/12/19 11:19:00 EST, [...] Supraventricular Active tachycardia(Confirmed)2 1L4-5 Dr. Fiore at [facility] Dec. 052s/p ablation 09/28 Dr. Romero Results Radiology Reports Exam Date Time Procedure Performing Provider Status 08/26/20 4:56 PM Chest 2 Views Frontal and Lat Kenlatia , James e; Auth (Verified) Notes:(Chest 2 Views Frontal and Lat) Reason For Exam: Chest Pain;Other:RESULT: Chest 2 Views Frontal and Lat Chest 2 Views Frontal and Lat Hx of Present Illness: pt reports episode tachycardia while eating lunch. Reports usually able to slow by coughing. Was unable to get to stop. Pt reports pressure to chest.SOB. hx SVT; Reason: Other:; Chest Pain; Clinical Question(s): Other: COMPARISON: 11/16/2018 FINDINGS: LINES AND TUBES: None. LUNGS AND PLEURA: Clear lungs. Normal pulmonary vascularity. No pleural effusion. No pneumothorax. HEART, MEDIASTINUM AND MARISA: Heart is normal in size. Normal mediastinal and hilar contour. BONES AND SOFT TISSUES: No acute abnormality. IMPRESSION: No acute abnormality. WSN: [id number] Ordering Physician: Donny Escudero Dictated By: Marino Jones MD Dictated Date/Time: 08/26/20 4:58 pm Reviewed By: Marino Jones MD Signed By: Marino Jones MD Signed Date/Time: 08/26/20 4:58 pm Transcribed By: RONALD Transcribed Date/Time: 08/26/20 4:57 pm Vital Signs Most recent to oldest [Reference Range]: 1 2 Height 168 cm 168 cm (08/26/20 3:55 PM) (08/26/20 3:43 PM) Weight 129.5 kg 129.5 kg (08/26/20 3:55 PM) (08/26/20 3:43 PM) Oxygen Saturation [94-100 %] 95 % 98 % (08/26/20 5:35 PM) (08/26/20 3:55 PM) Pulse Rate [55-90 bpm] 101 bpm 102 bpm *H* *H* (08/26/20 5:35 PM) (08/26/20 3:55 PM) Body Mass Index [18.5-24.99] 45.88 *>HHI* (08/26/20 3:55 PM) Blood Pressure [90-138/55-84 mm Hg] 125/79 mm Hg 130/ 80 mm Hg (08/26/20 5:35 PM) (08/26/20 3:55 PM) Temperature [96.8-100.4 DegF] 98.4 DegF (08/26/20 3:55 PM) Mode of Delivery (Oxygen) Room air Room air (08/26/20 5:35 PM) (08/26/20 3:55 PM) Blood pressure sites Arm, left Arm, left (08/26/20 5:35 PM) (08/26/20 3:55 PM) Temperature Route Oral (08/26/20 3:55 PM) Dry Weight 129.5 kg 129.5 kg (08/26/20 3:55 PM) (08/26/20 3:43 PM) Weight Obtained Via Patient/family stated (08/26/20 3:43 PM) Social History Social History Type Response Smoking Status Former smoker; Started at ag e: 21; Stopped at age: 41; entered on: 06/09/15 Sex
--- OUTSIDE RECORDS SUMMARY | 2022-08-09 06:10 | XMS_ITS | Continuity of Care Document ---
:1970 Author Organization [facility] Address [address] [place] [address]- Care Team Providers Name Role Phone Gin Amaro MD Primary Care Physician [facility]counter [facility] Date(s): 10/24/20 - 11/23/20 [facility] [address] [place] [id number] Allergies, Adverse Reactions, Alerts Substance Reaction Severity [...] (oldterm) 03/16/02 Given 1Admin Note: vis date 04/28/[id number] Note: Gave the VIS [id number] Note: 2nd Hep B Gave the VIS [id number] Note: 1 VIS 11/29/20115Admin Note: VIS...11/20/2011 Medications Carafate 1 [...] Supraventricular Active tachycardia(Confirmed)2 1L4-5 Dr. Fiore at [facility] Dec. 05/p ablation 09/28 Dr. Romero Social History Social History Type Response Smoking Status Former smoker; Started at ag e: 21; Stopped at age: 41; entered on: 06/09/15 Sex
--- OUTSIDE RECORDS SUMMARY | 2022-08-09 06:10 | XMS_ITS | Continuity of Care Document ---
:1970 Author Organization [facility] Address [address] [place] [address]- Care Team Providers Name Role Phone Gin Amaro MD Primary Care Physician Encounter [facility] Date(s): 10/26/20 - 11/25/20 [facility] [address] [place], [place] [address] Allergies, Adverse Reactions, Alerts Substance Reaction Severity [...] (oldterm) 03/16/02 Given 1Admin Note: vis date 04/28/201285894Vtlem Note: Gave the VIS [id number] Note: 2nd Hep B Gave the VIS [id number] Note: 1 VIS 11/29/20115Admin Note: VIS...11/20/2011 Medications [...]
--- OUTSIDE RECORDS SUMMARY | 2022-08-09 06:10 | XMS_ITS | Continuity of Care Document ---
:1970 Author Organization [facility] Address [address] [place] [address]- Care Team Providers Name Role Phone Gin Amaro MD Primary Care Physician Encounter [facility] Date(s): 04/18/21 - 05/18/21 [facility] [address] [place], [place] [address] Allergies, Adverse Reactions, Alerts Substance Reaction [...] (oldterm) 03/16/02 Given 1Admin Note: vis date 04/28/201208137Belzo Note: Gave the VIS [id number] Note: 2nd Hep B Gave the VIS [id number] Note: 1 VIS 11/29/20115Admin Note: VIS...11/20/2011 Medications Benadryl 25 mg oral tablet 25 mg, 1, tablet, By Mouth, Daily at bedtime, PRN as needed for allergy symptoms, # 30 tablet, 0 Refills, Maintenance Start Date: 12/22/20 Status: OrderedCarafate 1 gm oral tablet 1 Gm, 1, tablet, By Mouth, 4 times a day, # 120 tablet, Refills 0, Tot. Refills 0, Maintenance, 10/25/19 14:14:00 EST, Route to Pharmacy Electronically, [facility] - [address], 168, cm, 10/25/19 10:22:00 EST, Height, [...] Diverticulosis(Confirmed) Active GERD (gastroesophageal reflux Active disease)(Confirmed) Headache(Confirmed) Active Herniation of nucleus Active pulposus(Confirmed)1 Hypercholesterolemia(Confirmed) Active Impaired fasting glucose(Confirmed) Active Frequent urination(Confirmed) Active Left knee pain(Confirmed) Active Anxiety associated with Active depression(Confirmed) Myofascial muscle pain(Confirmed) Active Panic anxiety syndrome(Confirmed) Active 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 Fiore at [facility] Dec. 05/p ablation 09/28 Dr. Romero Social History Social History Type Response Smoking Status Former smoker; Started at ag e: 21; Stopped at age: 41; entered on: 06/09/15 Sex
--- OUTSIDE RECORDS SUMMARY | 2022-08-09 06:10 | XMS_ITS | Continuity of Care Document ---
:1970 Author Organization [facility] Address [address] [place] [phone]- Care Team Providers Name Role Phone Gin Amaro MD Primary Care Physician Encounter [facility] Date(s): 02/10/21 - 03/12/21 [facility] [address] [place] [id number] Allergies, Adverse Reactions, Alerts Substance [...] (oldterm) 03/16/02 Given 1Admin Note: vis date 04/28/201271345Vsgfb Note: Gave the VIS [id number] Note: 2nd Hep B Gave the VIS [id number] Note: 1 VIS 11/29/20115Admin Note: VIS...11/20/2011 Medications [...] Pharmacy Electronically, [facility] - [address], 168, cm, 10/25/19 10:22:00 EST, Height, 127.2, [...] EST, Tablet, [facility] - [address], 167, [...] Supraventricular Active tachycardia(Confirmed)2 1L4-5 Dr. Fiore at [place], [place] Dec. 05/p ablation 09/28 Dr. Romero Social History Social History Type Response Smoking Status Former smoker; Started at ag e: 21; Stopped at age: 41; entered on: 06/09/15 Sex
--- OUTSIDE RECORDS SUMMARY | 2022-08-09 06:10 | XMS_ITS | Continuity of Care Document ---
:1970 Author Organization [facility] Address [address] [place] [address]- Care Team Providers Name Role Phone Gin Amaro MD Primary Care Physician Encounter [facility] Date(s): 08/02/22 - 08/02/[address] [address]- Discharge Disposition: A-D/C Walkout Attending Physician: Not on Staff, Attending MD Admitting Physician: Not on Staff, Admitting MD Referring Physician: Not on Staff, Referring [...] (oldterm) 03/16/02 Given 1Admin Note: vis date 04/28/201254545Eafjc Note: Gave the VIS [id number] Note: 2nd Hep B Gave the VIS [id number] Note: VIS 11/29/20115Admin Note: VIS...11/20/2011 Medications acetaminophen-oxyCODONE 325 mg-5 mg oral tablet 1, tablet, By Mouth, Every 6 hours, PRN, CSA 28, # 112 tablet, Refills 0, Tot. Refills 0, Maintenance, for pain, 07/18/22 16:53:00 EDT, Route to Pharmacy Electronically, [id number] Tablet, Partial fill upon patient request, 07/20/22,... Start Date: 07/18/22 Status: OrderedBenadryl 25 mg oral tablet 25 mg, 1, tablet, By Mouth, Daily at bedtime, PRN as needed for allergy symptoms, # 30 tablet, 0 Refills, Maintenance Start Date: 12/22/20 Status: OrderedCompression Stockings See Instructions, # 1 each, Refills 1, Tot. Refills 1, Maintenance, surgical, knee length 20-30 mm Hg, 07/31/22 16:31:00 EDT, Supply Start Date: 07/31/22 Status: Orderedcpap 8-20cm with heated humidifier cpap 8-20cm with heated humidifier, See Instructions, # 1 units, Refills 0, Tot. Refills 0, Maintenance, Dx: nik to treat daytime function, 01/27/19 15:41:40 EDT, Compound Start Date: 01/27/19 Status: Orderedcpap supplies dx: NIK cpap supplies dx: NIK, See Instructions, # 1 each, Refills 11, Tot. Refills 11, Maintenance, Mask,tubing,heated tubing,filter,water chamber,chin strap,pillows, 01/27/19 16:02:58 EDT, Compound Start Date: 01/27/19 Status: Ordereddiazepam 5 mg oral tablet 2.5 mg, 0.5, tablet, By Mouth, Daily in AM, PRN, Refills 0, Maintenance, as needed for anxiety, 05/30/22 16:08:00 EDT, Partial fill upon patient request if the prescription is for a schedule II opioid drug. Start Date: 05/30/22 Status: Orderedferrous sulfate 325 mg oral enteric coated tablet 325 mg, 1, tablet, By Mouth, 3 times a day, start 1 per day and increase as tolerated. Take with Vitamin C to help absorption, # 90 tablet, Refills 3, Tot. Refills 3, Maintenance, 10/12/19 11:21:22 EST, Route to Pharmacy Electronically, [facility]... Start Date: 10/12/19 Status: OrderedGlucosamine & Chondroitin with MSM See Instructions, takes one 1500mg daily, 0 Refills, Maintenance, 09/05/20 15:11:00 EST Start Date: 09/05/20 Status: OrderedJuxta fit Compression garment Juxta fit Compression garment, See Instructions, # 1 each, Refills 0, Tot. Refills 0, Maintenance, venous insuff, 07/31/22 16:35:00 EDT, Supply Start Date: 07/31/22 Status: OrderedMetoprolol Tartrate 25 mg oral tablet 0.5 tablet = 12.5 mg, By Mouth, 2 times a day, PRN Other, Take 1 pill as needed for palpitations, # 90 tablet, 11 Refills, Soft Stop, 09/05/20 15:50:00 EST, Tablet, [facility] #[id number], 168, cm, 09/05/20 15:04:00 EST, Height, 129.5, kg, ... Start Date: 09/05/20 Stop Date: 08/31/21 Status: OrderedMultivitamin See Instructions, takes one Daily, 0 Refills, Maintenance, 09/05/20 15:10:00 EST Start Date: 09/05/20 Status: OrderedNuLYTELY with Flavor Packs oral powder for reconstitution See Instructions, Drink 240mL every 15-20 minutes until first half is gone. Repeat 6 hours prior to procedure., # 4,000 mL, 0 Refills, Maintenance, 01/12/22 14:47:00 EDT, [facility] #[id number], Partial fill upon patient request if the prescript... Start Date: 01/12/22 Status: Orderedprazosin 1 mg oral capsule TAKE 1 CAPSULE BY MOUTH AT BEDTIME FOR NIGHTMARES OR PTSD Start Date: 05/30/22 Status: OrderedVitamin C 250 mg oral tablet 1 tablet = 250 mg, By Mouth, 3 times a day, To take with iron, # 90 tablet, 3 Refills, Maintenance, 10/12/19 11:22:08 EST, Tablet, [facility], 167, cm, 10/12/19 11:19:00 EST, Height, 124, kg, 06/15/19 8:35:08 EDT, Dry Weight Start Date: 10/12/19 Status: OrderedVitamin D3 1000 intl units oral capsule 1 capsule = 25 mcg, By Mouth, Daily, 0 Refills, Maintenance, 12/01/21 16:01:00 EST, Partial fill upon patient request if the prescription is for a schedule II opioid drug. Start Date: 12/01/21 Status: OrderedZinc = 140 mg, By Mouth, Daily, 0 Refills, Maintenance, 12/01/21 16:00:00 EST, Partial fill upon patient request if the prescription is for a schedule II opioid drug. Start Date: 12/01/21 Status: OrderedZzzQuil 50 mg/30 mL oral liquid 30 mL = 50 mg, By Mouth, Daily at bedtime, PRN for insomnia, # 177 mL, 0 Refills, Maintenance, 03/22/21 10:56:00 EDT, Liquid, Partial fill upon patient request if the prescription is for a schedule II opioid drug. Start Date: 03/22/21 Status: Ordered Problem List Condition Confirmation Course Effective Status Health Informa nt Dates Status Anxiety associated with Confirmed 11/18/12 Active depression Chronic insomnia Confirmed Active Chronic low back pain Confirmed 12/03/06 Active Diverticulosis Confirmed Active GERD (gastroesophageal Confirmed Active reflux disease) Headache Confirmed Active Herniation of nucleus Confirmed Active pulposus1 Hypercholesterolemia Confirmed Active Impaired fasting glucose Confirmed Active Frequent urination Confirmed Active Left knee pain Confirmed Active Anxiety associated with Confirmed Active depression Myofascial muscle pain Confirmed Active Chronic narcotic use Confirmed Active Panic anxiety syndrome Confirmed Active Severe major depression Confirmed Active Severe major depression Confirmed Active without psychotic features Severe obesity Confirmed Active Sleep apnea Confirmed 02/15/14 Active Supraventricular Confirmed Active tachycardia2 1L4-5 Dr. Fiore at [facility] Dec. 052s/p ablation 09/28 Dr. Romero Results Radiology Reports Exam Date Time Procedure Performing Provider Status 08/02/22 8:08 AM Chest 2 Views Frontal and Lat Kasie Jules; Auth (Verified) Notes:(Chest 2 Views Frontal and Lat) Reason For Exam: Chest Pain;Other:RESULT: Chest 2 Views Frontal and Lat Chest 2 Views Frontal and Lat INDICATION: Chest pain. COMPARISON: 08/26/2020. FINDINGS: LINES AND TUBES: None. LUNGS AND PLEURA: Clear lungs. Normal pulmonary vascularity. No pleural effusion. No pneumothorax. HEART, MEDIASTINUM AND MARISA: Heart is normal in size. Normal mediastinal and hilar contour. BONES AND SOFT TISSUES: No acute abnormality. IMPRESSION: No acute abnormality. WSN: [id number] Ordering Physician: Sierra Hurst Dictated By: Alfredo Howell MD Dictated Date/Time: 08/02/22 8:23 am Reviewed By: Alfredo Howell MD Signed By: Alfredo Howell MD Signed Date/Time: 08/02/22 8:23 am Transcribed By: RONALD Transcribed Date/Time: 08/02/22 8:22 am Vital Signs Most recent to oldest 1 2 3 [Reference Range]: Weight 126.8 kg 126.8 kg 126.8 kg (08/02/22 11:00 AM) (08/02/22 7:16 AM) (08/02/22 6: 57 AM) Oxygen Saturation [94-100 %] 98 % 97 % 100 % (08/02/22 9:53 PM) (08/02/22 5:04 PM) (08/02/22 9:0 2 AM) Pulse Rate [55-90 bpm] 77 bpm 70 bpm 70 bpm (08/02/22 9:53 PM) (08/02/22 5:04 PM) (08/02/22 11: 00 AM) Blood Pressure [90-138/55-84 129/73 mm Hg 139/77 mm Hg 131 /65 mm Hg mm Hg] (08/02/22 9:53 PM) *H* (08/02/22 11:00 AM) (08/02/22 5:04 PM) Respiratory Rate [16-30 18 br/min 20 br/min 18 br/mi n br/min] (08/02/22 5:04 PM) (08/02/22 11:00 AM) (08/02/22 9: 02 AM) Temperature [96.8-100.4 97.7 DegF 98.2 DegF 98.1 Deg F DegF] (08/02/22 9:53 PM) (08/02/22 9:02 AM) (08/02/22 7:1 6 AM) Mode of Delivery (Oxygen) Room air Room air Room a ir (08/02/22 9:53 PM) (08/02/22 5:04 PM) (08/02/22 9:0 2 AM) Blood pressure sites Arm, left Arm, right Arm, right (08/02/22 9:53 PM) (08/02/22 5:04 PM) (08/02/22 11: 00 AM) Temperature Route Oral Oral Oral (08/02/22 9:53 PM) (08/02/22 9:02 AM) (08/02/22 7:1 6 AM) Dry Weight 126.8 kg 126.8 kg 126.8 kg (08/02/22 11:00 AM) (08/02/22 7:16 AM) (08/02/22 6: 57 AM) Social History Social History Type Response Smoking Status Former smoker; Started at ag e: 21; Stopped at age: 41; entered on: 06/09/15 Sex Note BHSPowerscribe , CIS S: TRANSCRIBE Alfredo Howell MD: VERIFY Event Display: Result: Authored Date: Chest 2 Views Frontal and Lat INDICATION: Chest pain. COMPARISON: 08/26/2020. FINDINGS: LINES AND TUBES: None. LUNGS AND PLEURA: Clear lungs. Normal pulmonary vascularity. No pleural effusion. No pneumothorax. HEART, MEDIASTINUM AND MARISA: Heart is normal in size. Normal mediastinal and hilar contour. BONES AND SOFT TISSUES: No acute abnormality. IMPRESSION: No acute abnormality. WSN: [id number] Ordering Physician: Sierra Hurst Dictated By: Alfredo Howell MD Dictated Date/Time: 08/02/22 8:23 am Reviewed By: Alfredo Howell MD Signed By: Alfredo Howell MD Signed Date/Time: 08/02/22 8:23 am Transcribed By: RONALD Transcribed Date/Time: 08/02/22 8:22 am Patient Care team information PersonnelName: Gin Amaro MD Address: Address: [address] [place] [address] [place] [address]-
--- OUTSIDE RECORDS SUMMARY | 2022-08-09 06:10 | XMS_ITS | Continuity of Care Document ---
:1970 Author Organization [facility] Address [address] [place] [address]- Care Team Providers Name Role Phone Gin Amaro MD Primary Care Physician Encounter [facility] Date(s): 12/02/20 - 01/01/21 [facility] [address] [place] [id number] Allergies, Adverse Reactions, Alerts Substance Reaction Severity [...] (oldterm) 03/16/02 Given 1Admin Note: vis date 04/28/201272750Svmqw Note: Gave the VIS [id number] Note: 2nd Hep B Gave the VIS [id number] Note: VIS 11/29/20115Admin Note: VIS...11/20/2011 Medications Benadryl 25 [...] Pharmacy Electronically, [facility] - [address] , 168, cm, 10/25/19 10:22:00 EST, Height, 127.2, [...] AID - 1-5... Start Date: 10/12/19 Status: Orderedipratropium nasal 21 mcg/inh spray See Instructions, USE 2 SPRAYS IN EACH NOSTRIL TWICE DAILY, # 30 mL, 0 Refills, Acute, [facility] #[id number], 43, USE 2 SPRAYS IN EACH NOSTRIL TWICE DAILY, 168, cm, 12/02/20 10:22:00 EST, Height,129.5, kg, 08/26/20 15:55:00 EDT, Dry Weight Start Date: 12/11/20 Status: OrderedVitamin C 250 mg oral tablet [...] with Active depression(Confirmed) Myofascial muscle pain(Confirmed) Active Sleep apnea(Confirmed) 02/15/14 Active Supraventricular Active tachycardia(Confirmed)2 1L4-5 Dr. Fiore at [facility] Dec. /p ablation 09/28 Dr. Romero Social History Social History Type Response Smoking Status Former smoker; Started at ag e: 21; Stopped at age: 41; entered on: 06/09/15 Sex
--- OUTSIDE RECORDS SUMMARY | 2022-08-09 06:10 | XMS_ITS | Continuity of Care Document ---
:1970 Author Organization [facility] Address [address] [place] [phone]- Care Team Providers Name Role Phone Gin Amaro MD Primary Care Physician Encounter [facility] Date(s): 05/21/20 - 06/26/[address] [address]- [facility] Attending Physician: Mora Horn MD Admitting Physician: Mora Horn MD Referring Physician: Mora Horn MD Allergies, Adverse Reactions, [...] (oldterm) 03/16/02 Given 1Admin Note: vis date 04/28/201243350Juaof Note: Gave the VIS [id number] Note: 2nd Hep B Gave the VIS [id number] Note: VIS 11/29/20115Admin Note: VIS...11/20/2011 Medications Carafate 1 gm oral tablet 1 Gm, 1, tablet, By Mouth, 4 times a day, # 120 tablet, Refills 0, Tot. Refills 0, Maintenance, 10/25/19 13:51:00 EST, Route to Pharmacy Electronically, [facility] [address], 168, [...] 10/12/19 11:21:22 EST, Route to Pharmacy Electronically, [facility] - 1-[facility]... Start Date: 10/12/19 Status: [...] Supraventricular Active tachycardia(Confirmed)2 1L4-5 Dr. Fiore at [place], [place] Dec. /p ablation 09/28 Dr. Romero Social History Social History Type Response Smoking Status Former smoker; Started at ag e: 21; Stopped at age: 41; entered on: 06/09/15 Sex
--- OUTSIDE RECORDS SUMMARY | 2022-08-09 06:10 | XMS_ITS | Continuity of Care Document ---
:1970 Author Organization [facility] Address [address] [place] [address]- Care Team Providers Name Role Phone Gin Amaro MD Primary Care Physician Encounter [facility] Date(s): 06/22/21 - 07/22/21 [facility] [address] [place], [place] [address] Allergies, Adverse Reactions, Alerts Substance Reaction [...] (oldterm) 03/16/02 Given 1Admin Note: vis date 04/28/201294409Tjoix Note: Gave the VIS [id number] Note: 2nd Hep B Gave the VIS [id number] Note: 1 VIS 11/29/20115Admin Note: VIS...11/20/2011 Medications [...] Supraventricular Active tachycardia(Confirmed)2 1L4-5 Dr. Fiore at [facility] Dec. 05/p ablation 09/28 Dr. Romero Social History Social History Type Response Smoking Status Former smoker; Started at ag e: 21; Stopped at age: 41; entered on: 06/09/15 Sex
--- OUTSIDE RECORDS SUMMARY | 2022-08-09 06:10 | XMS_ITS | Continuity of Care Document ---
:1970 Author Organization [facility] Address [address] [place] [address]- Care Team Providers Name Role Phone Gin Amaro MD Primary Care Physician [id number] Date(s): 03/23/20 - 03/30/20 [facility] [address] [place] [address]- [facility] Attending Physician: Ananda Granger MD Referring Physician: Gin Amaro MD Allergies, Adverse [...] (oldterm) 03/16/02 Given 1Admin Note: vis date 04/28/201253149Pqbhz Note: Gave the VIS [id number] Note: 2nd Hep B Gave the VIS [id number] Note: VIS 11/29/20115Admin Note: VIS...11/20/2011 Medications Carafate [...] 10/12/19 11:21:22 EST, [facility] Start Date: 10/12/19 Status: [...] Supraventricular Active tachycardia(Confirmed)2 1L4-5 Dr. Fiore at [facility] Dec. /p ablation 09/28 Dr. Romero Social History Social History Type Response Smoking Status Former smoker; Started at ag e: 21; Stopped at age: 41; entered on: 06/09/15 Sex
--- OUTSIDE RECORDS SUMMARY | 2022-08-09 06:10 | XMS_ITS | Continuity of Care Document ---
:1970 Author Organization [facility] Address [address] [place] [address]- Care Team Providers Name Role Phone Gin Amaro MD Primary Care Physician Encounter [facility] Date(s): 10/19/20 - 11/18/20 [facility] [address] [place], [place] [address] Allergies, Adverse Reactions, Alerts Substance Reaction [...] (oldterm) 03/16/02 Given 1Admin Note: vis date 04/28/201226454Nqiud Note: Gave the VIS [id number] Note: 2nd Hep B Gave the VIS [id number] Note: 1 VIS 11/29/20115Admin Note: VIS...11/20/2011 Medications [...] Tablet, [facility], 167, cm, 10/12/19 11:19:00 EST, Height, [...] Supraventricular Active tachycardia(Confirmed)2 1L4-5 Dr. Fiore at [facility] Dec. 05/p ablation 09/28 Dr. Romero Social History Social History Type Response Smoking Status Former smoker; Started at ag e: 21; Stopped at age: 41; entered on: 06/09/15 Sex
--- OUTSIDE RECORDS SUMMARY | 2022-08-09 06:10 | XMS_ITS | Continuity of Care Document ---
:1970 Author Organization [facility] Address [address] [place] [address]- Care Team Providers Name Role Phone Gin Amaro MD Primary Care Physician Encounter [facility] Date(s): 09/13/20 - 10/13/20 [facility] [address] [address]- Allergies, Adverse Reactions, Alerts Substance Reaction Severity [...] (oldterm) 03/16/02 Given 1Admin Note: vis date 04/28/201225630Jltpl Note: Gave the VIS [id number] Note: 2nd Hep B Gave the VIS [id number] Note: 1 VIS 11/29/20115Admin Note: VIS...11/20/2011 Medications Carafate 1 gm oral tablet 1 Gm, 1, tablet, By Mouth, 4 times a day, # 120 tablet, Refills 0, Tot. Refills 0, Maintenance, 10/25/19 13:51:00 EST, Route to Pharmacy Electronically, [facility] [address], 168, cm, 10/25/19 10:22:00 EST, Height, 127.2, [...] Replace Required Details Start Date: 03/27/18 Status: Orderedomeprazole 20 mg oral enteric coated [...] Tablet, [facility] 167, cm, 10/12/19 11:19:00 EST, Height, 124, [...] Active tachycardia(Confirmed)2 1L4-5 Dr. Fiore at [facility] Dec. 05/p ablation 09/28 Dr. Romero Social History Social History Type Response Smoking Status Former smoker; Started at ag e: 21; Stopped at age: 41; entered on: 06/09/15 Sex
--- OUTSIDE RECORDS SUMMARY | 2022-08-09 06:10 | XMS_ITS | Continuity of Care Document ---
:1970 Author Organization [facility] Address [address] [place] [address]- Care Team Providers Name Role Phone Gin Amaro MD Primary Care Physician Encounter [facility] Date(s): 03/17/21 - 06/17/21 [facility] [address] [place] [address] Attending Physician: Connie Orlando MD Admitting Physician: Connie Orlando MD Referring Physician: Gin Amaro MD Allergies, [...] (oldterm) 03/16/02 Given 1Admin Note: vis date 04/28/201211615Eoudc Note: Gave the VIS [id number] Note: 2nd Hep B Gave the VIS [id number] Note: 1 VIS 11/29/20115Admin Note: VIS...11/20/2011 Medications [...] EST, Tablet, [facility] [address], 167, cm, 10/12/19 11:19:00 EST, Height, 124, [...] Supraventricular Active tachycardia(Confirmed)2 1L4-5 Dr. Fiore at [place], [place] Dec. 05/p ablation 09/28 Dr. Romero Social History Social History Type Response Smoking Status Former smoker; Started at ag e: 21; Stopped at age: 41; entered on: 06/09/15 Sex
--- OUTSIDE RECORDS SUMMARY | 2022-08-09 06:11 | XMS_ITS | Continuity of Care Document ---
:1970 Author Organization [facility] Address [address] [place] [address]- Care Team Providers Name Role Phone Gin Amaro MD Primary Care Physician Encounter [facility] Date(s): 01/12/22 - 02/11/22 [facility] [address] [place] [address]- Attending Physician: Helder Harris Admitting Physician: Helder Harris Referring Physician: Helder Harris Allergies, Adverse Reactions, Alerts Substance Reaction Severity [...] (oldterm) 03/16/02 Given 1Admin Note: vis date 04/28/[id number] Note: Gave the VIS [id number] Note: 2nd Hep B Gave the VIS [id number] Note: VIS 11/29/20115Admin Note: VIS...11/20/2011 Medications Benadryl 25 mg oral tablet 25 mg, 1, tablet, By Mouth, Daily at bedtime, PRN as needed for allergy symptoms, # 30 tablet, 0 Refills, Maintenance Start Date: 12/22/20 Status: Orderedferrous sulfate 325 mg oral enteric coated tablet 325 mg, 1, tablet, By Mouth, 3 times a day, start 1 per day and increase as tolerated. Take with Vitamin C to help absorption, # 90 tablet, Refills 3, Tot. Refills 3, Maintenance, 10/12/19 11:21:22 EST, Route to Pharmacy Electronically, [facility]... Start Date: 10/12/19 Status: OrderedNuLYTELY with Flavor Packs oral powder for reconstitution See Instructions, Drink 240mL every 15-20 minutes until first half is gone. Repeat 6 hours prior to procedure., # 4,000 mL, 0 Refills, Maintenance, 01/12/22 14:47:00 EDT, [id number], Partial fill upon patient request if the prescript... Start Date: 01/12/22 Status: OrderedVitamin C 250 mg oral tablet [...] Informant Anxiety associated with 11/18/12 Active depression(Confirmed) Chronic low back pain(Confirmed) 12/03/06 Active Diverticulosis(Confirmed) Active GERD (gastroesophageal reflux Active disease)(Confirmed) Headache(Confirmed) Active Herniation of nucleus Active pulposus(Confirmed)1 Hypercholesterolemia(Confirmed) Active Impaired fasting glucose(Confirmed) Active Frequent urination(Confirmed) Active Left knee pain(Confirmed) Active Anxiety associated with Active depression(Confirmed) Myofascial muscle pain(Confirmed) Active Panic anxiety syndrome(Confirmed) Active Severe major 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 Fiore at [place], [place] Dec. /p ablation 09/28 Dr. Romero Social History Social History Type Response Smoking Status Former smoker; Started at ag e: 21; Stopped at age: 41; entered on: 06/09/15 Sex
--- OUTSIDE RECORDS SUMMARY | 2022-08-09 06:11 | XMS_ITS | Continuity of Care Document ---
:1970 Author Organization [facility] Address [address] [place] [address]- Care Team Providers Name Role Phone Gin Amaro MD Primary Care Physician Encounter [facility] [id number] Date(s): 02/10/21 - 03/12/21 [facility] [address] [place] [address] Attending Physician: Helder Harris Admitting Physician: AdmHelder pearce Referring Physician: AdmtrHelder Allergies, Adverse Reactions, Alerts Substance Reaction Severity [...] (oldterm) 03/16/02 Given 1Admin Note: vis date 04/28/201298121Qyhdi Note: Gave the VIS [id number] Note: 2nd Hep B Gave the VIS [id number] Note: 1 VIS 11/29/20115Admin Note: VIS...11/20/2011 Medications [...] Supraventricular Active tachycardia(Confirmed)2 1L4-5 Dr. Fiore at [place], [place] Dec. 05/p ablation 09/28 Dr. Romero Social History Social History Type Response Smoking Status Former smoker; Started at ag e: 21; Stopped at age: 41; entered on: 06/09/15 Sex
--- OUTSIDE RECORDS SUMMARY | 2022-08-09 06:11 | XMS_ITS | Continuity of Care Document ---
:1970 Author Organization [facility] Address [address] [place] [address]- Care Team Providers Name Role Phone Gin Amaro MD Primary Care Physician En[place] [facility] [place](s): 07/31/22 - 08/07/22 [facility] [address] [place] [address]- Attending Physician: Reggie Avina MD Admitting Physician: Reggie Avina MD Referring Physician: Gin Amaro MD Allergies, [...] (oldterm) 03/16/02 Given 1Admin Note: vis date 04/28/201258444Wxcdl Note: Gave the VIS [id number] Note: 2nd Hep B Gave the VIS [id number] Note: VIS 11/29/20115Admin Note: VIS...11/20/2011 Medications acetaminophen-oxyCODONE 325 mg-5 mg oral tablet 1, tablet, By Mouth, Every 6 hours, PRN, CSA 28, # 112 tablet, Refills 0, Tot. Refills 0, Maintenance, for pain, 07/18/22 16:53:00 EDT, Route to Pharmacy Electronically, [facility] #[id number] Tablet, Partial fill upon patient request, 07/20/22,... [...] Refills, Soft Stop, 09/05/20 15:50:00 EST, Tablet, [facility] #[id number], 168, cm, 09/05/20 15:04:00 EST, Height, 129.5, [...] mL, 0 Refills, Maintenance, 01/12/22 14:47:00 EDT, [facility] #[id number], Partial fill upon patient request if the [...] Confirmed Active tachycardia2 1L4-5 Dr. Fiore at [facility] Dec. 05/p ablation 09/28 Dr. Romero Vital Signs Most recent to oldest [Reference Range]: 1 Height 168 cm (07/31/22 4:24 PM) Weight 125.65 kg (07/31/22 4:24 PM) Oxygen Saturation [94-100 %] 97 % (07/31/22 4:24 PM) Pulse Rate [55-90 bpm] 75 bpm (07/31/22 4:24 PM) Body Mass Index [18.5-24.99 kg/m2] 44.52 kg/m2 *>HHI* (07/31/22 4:24 PM) Blood Pressure [90-138/55-84 mm Hg] 130/88 mm Hg (07/31/22 4:24 PM) Mode of Delivery (Oxygen) Room air (07/31/22 4:24 PM) Blood pressure sites Arm, left (07/31/22 4:24 PM) Dry Weight 125.65 kg (07/31/22 4:24 PM) Weight Obtained Via Patient/family stated (07/31/22 4:24 PM) Dry Weight Obtained Via Patient/family stated (07/31/22 4:24 PM) Social History Social History Type Response Smoking Status Former smoker; Started at ag e: 21; Stopped at age: 41; entered on: 06/09/15 Sex Patient Care team information PersonnelName: Prem VIVAR, Gin Aguayo Address: Address: [address] [place] [address], [place] [address]
--- OUTSIDE RECORDS SUMMARY | 2022-08-09 06:11 | XMS_ITS | Continuity of Care Document ---
:1970 Author Organization [facility] Address [address] [place] [address]- Care Team Providers Name Role Phone Gin Amaro MD Primary Care Physician Encounter [facility] [place] Date(s): 06/15/22 - 07/15/22 [facility] [address] [address] Attending Physician: Helder Harris Admitting Physician: AdmHelder pearce Referring Physician: Admtr, Ar8 Allergies, Adverse Reactions, Alerts Substance Reaction Severity [...] (oldterm) 03/16/02 Given 1Admin Note: vis date 04/28/201217080Fnkei Note: Gave the VIS [id number] Note: 2nd Hep B Gave the VIS [id number] Note: VIS 11/29/20115Admin Note: VIS...11/20/2011 Medications acetaminophen-oxyCODONE 325 mg-5 mg oral tablet 1, tablet, By Mouth, Every 6 hours, PRN, CSA 28, # 112 tablet, Refills 0, Tot. Refills 0, Maintenance, for pain, 06/19/22 17:37:00 EDT, Route to Pharmacy Electronically, [facility] #[id number] Tablet, Partial fill upon patient request, 06/22/22,... Start Date: 06/19/22 Status: OrderedBenadryl 25 mg oral tablet 25 mg, 1, tablet, By Mouth, Daily at bedtime, PRN as needed for allergy symptoms, # 30 tablet, 0 Refills, Maintenance Start Date: 12/22/20 Status: Orderedcpap 8-20cm with heated humidifier cpap 8-20cm with heated humidifier, See Instructions, # 1 units, Refills 0, Tot. Refills 0, Maintenance, Dx: nik to treat daytime function, 01/27/19 15:41:40 EDT, Compound Start Date: 01/27/19 Status: Orderedcpap supplies dx: NKI cpap supplies dx: NIK, See Instructions, # [...] 09/05/20 15:11:00 EST Start Date: 09/05/20 Status: OrderedMetoprolol Tartrate 25 mg oral tablet 0.5 tablet = 12.5 mg, By Mouth, 2 times a day, PRN Other, Take 1 pill as needed for palpitations, # 90 tablet, 11 Refills, Soft Stop, 09/05/20 15:50:00 EST, Tablet, [facility] #[id number], 168, cm, 09/05/20 15:04:00 EST, Height, 129.5, kg, 08/26/... Start Date: 09/05/20 Stop Date: 08/31/21 Status: OrderedMultivitamin See Instructions, takes one Daily, 0 Refills, Maintenance, 09/05/20 15:10:00 EST Start Date: 09/05/20 Status: OrderedNuLYTELY with Flavor Packs oral powder for reconstitution See Instructions, Drink 240mL every 15-20 minutes until first half is gone. Repeat 6 hours prior to procedure., # 4,000 mL, 0 Refills, Maintenance, 01/12/22 14:47:00 EDT, [facility] #[id number], Partial fill upon patient request if the [...] 11:22:08 EST, Tablet, [facility], 167, cm, 10/12/19 11:19:00 EST, Height, 124, [...] Date: 03/22/21 Status: Ordered Problem List Condition Effective Dates Status Health Status Informant Anxiety associated with 11/18/12 Active depression(Confirmed) Chronic insomnia(Confirmed) Active Chronic low back pain(Confirmed) 12/03/06 Active Diverticulosis(Confirmed) Active GERD (gastroesophageal reflux Active disease)(Confirmed) Headache(Confirmed) Active Herniation of nucleus Active pulposus(Confirmed)1 Hypercholesterolemia(Confirmed) Active Impaired fasting glucose(Confirmed) Active Frequent urination(Confirmed) Active Left knee pain(Confirmed) Active Anxiety associated with Active depression(Confirmed) Myofascial muscle pain(Confirmed) Active Chronic narcotic use(Confirmed) Active Panic anxiety syndrome(Confirmed) Active Severe major depression(Confirmed) Active Severe major 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 Fiore at [facility] Dec. 05/p ablation 09/28 Dr. Romero Social History Social History Type Response Smoking Status Former smoker; Started at ag e: 21; Stopped at age: 41; entered on: 06/09/15 Sex Care Team PersonnelName: Gin Amaro MD Address: [address] [place] [address] [address]
--- OUTSIDE RECORDS SUMMARY | 2022-08-09 06:11 | XMS_ITS | Continuity of Care Document ---
:1970 Author Organization [facility] Address [address] [place] [address]- Care Team Providers Name Role Phone Gin Amaro MD Primary Care Physician [place] [facility] [place](s): 03/06/22 - 07/01/22 [facility] [address] [address] Attending Physician: Mora Horn MD Admitting Physician: Mora Horn MD Referring Physician: Gin Amaro MD Allergies, [...] (oldterm) 03/16/02 Given 1Admin Note: vis date 04/28/201239635Tldxh Note: Gave the VIS [id number] Note: 2nd Hep B Gave the VIS 50-64-73431Loxiu Note: VIS 11/29/20115Admin Note: VIS...11/20/2011 Medications acetaminophen-oxyCODONE 325 mg-5 mg oral tablet 1, tablet, By Mouth, Every 6 hours, PRN, CSA 28, # 112 tablet, Refills 0, Tot. Refills 0, Maintenance, for pain, 06/19/22 17:37:00 EDT, Route to Pharmacy Electronically, [facility] #[id number] Tablet, Partial fill upon patient request, 06/22/22,... [...] Refills, Soft Stop, 09/05/20 15:50:00 EST, Tablet, [facility] #[id number], 168, cm, 09/05/20 15:04:00 EST, Height, 129.5, [...] mL, 0 Refills, Maintenance, 01/12/22 14:47:00 EDT, [facility] #[id number], Partial fill upon patient request if the [...] 11:22:08 EST, Tablet, [facility], 167, cm, 10/12/19 11:19:00 EST, Height, [...] Care Team PersonnelName: Gin Amaro MD Address: [address] [place] [address]
--- OUTSIDE RECORDS SUMMARY | 2022-08-09 06:11 | XMS_ITS | Continuity of Care Document ---
:1970 Author Organization [facility] Address [address] [place] [address]- Care Team Providers Name Role Phone Gin Amaro MD Primary Care Physician Encounter [facility] [place] Date(s): 12/02/20 - 01/19/21 [facility] [address] [place] [address] Attending Physician: Yadiel Tao DO Admitting [...] (oldterm) 03/16/02 Given 1Admin Note: vis date 04/28/201256441Ooobg Note: Gave the VIS [id number] Note: 2nd Hep B Gave the VIS 54-91-82054Mnvzs Note: VIS 11/29/20115Admin Note: VIS...11/20/2011 Medications Benadryl [...] to Pharmacy Electronically, [facility], 168, cm, 10/25/19 10:22:00 EST, Height, 127.2, [...] DAILY, # 30 mL, 0 Refills, Acute, [facility] #[id number], 43, USE 2 SPRAYS IN EACH NOSTRIL TWICE DAILY, 168, cm, 12/02/20 10:22:00 EST, Height,129.5, kg, 08/26/20 15:55:00 EDT, Dry Weight Start Date: 12/11/20 Status: OrderedVitamin C 250 mg oral tablet 1 tablet = 250 mg, By Mouth, 3 times a day, To take with iron, # 90 tablet, 3 Refills, Maintenance, 10/12/19 11:22:08 EST, Tablet, [facility], 167, cm, 10/12/19 11:19:00 EST, Height, 124, [...] Supraventricular Active tachycardia(Confirmed)2 1L4-5 Dr. Fiore at [facility] Dec. 05/p ablation 09/28 Dr. Romero Social History Social History Type Response Smoking Status Former smoker; Started at ag e: 21; Stopped at age: 41; entered on: 06/09/15 Sex
--- OUTSIDE RECORDS SUMMARY | 2022-08-09 06:11 | XMS_ITS | Continuity of Care Document ---
:1970 Author Organization [facility] Address [address] [place] [address]- Care Team Providers Name Role Phone Gin Amaro MD Primary Care Physician Encounter [facility] Date(s): 05/05/21 - 06/04/[address] [address] Attending Physician: Helder Harris Admitting Physician: [...] (oldterm) 03/16/02 Given 1Admin Note: vis date 04/28/201257816Gwbdc Note: Gave the VIS 09-20-73981Umnts Note: 2nd Hep B Gave the VIS [id number] Note: 1 VIS 11/29/20115Admin Note: VIS...11/20/2011 Medications [...] Supraventricular Active tachycardia(Confirmed)2 1L4-5 Dr. Fiore at [place], [place] Dec. /p ablation 09/28 Dr. Romero Social History Social History Type Response Smoking Status Former smoker; Started at ag e: 21; Stopped at age: 41; entered on: 06/09/15 Sex
--- OUTSIDE RECORDS SUMMARY | 2022-08-09 06:11 | XMS_ITS | Continuity of Care Document ---
:1970 Author Organization [facility] Address [address] [place] [address]- Care Team Providers Name Role Phone Gin Amaro MD Primary Care Physician Encounter [facility] [place] Date(s): 05/18/21 - 06/17/21 [facility] [address] [place] [address] [address] Attending Physician: Helder Harris Admitting Physician: Admtr, Helder Referring Physician: Admtr, Ar8 Allergies, Adverse Reactions, [...] (oldterm) 03/16/02 Given 1Admin Note: vis date 04/28/201240931Xhlrb Note: Gave the VIS 37-00-15102Pvobj Note: 2nd Hep B Gave the VIS 07-05-47887Nywra Note: VIS 11/29/20115Admin Note: VIS...11/20/2011 Medications Benadryl [...] Supraventricular Active tachycardia(Confirmed)2 1L4-5 Dr. Fiore at [place], [place] Dec. 05/p ablation 09/28 Dr. Romero Social History Social History Type Response Smoking Status Former smoker; Started at ag e: 21; Stopped at age: 41; entered on: 06/09/15 Sex
--- OUTSIDE RECORDS SUMMARY | 2022-08-09 06:11 | XMS_ITS | Continuity of Care Document ---
:1970 Author Organization [facility] Address [address] [place] [address]- Care Team Providers Name Role Phone Gin Amaro MD Primary Care Physician Encounter [facility] [place] Date(s): 07/07/20 - 08/06/[address] [address]- [facility] Attending Physician: Helder Harris Admitting Physician: Helder Harris Referring Physician: AdmHelder pearce Allergies, Adverse Reactions, Alerts Substance Reaction Severity [...] (oldterm) 03/16/02 Given 1Admin Note: vis date 04/28/201284699Tlpzh Note: Gave the VIS [id number] Note: 2nd Hep B Gave the VIS [id number] Note: 1 VIS 11/29/20115Admin Note: VIS...11/20/2011 Medications [...] 10/25/19 14:14:00 EST, Route to Pharmacy Electronically, [facility] [address], 168, cm, 10/25/19 [...] 10/12/19 11:21:22 EST, Route to Pharmacy Electronically, [facility]... Start Date: 10/12/19 Status: OrderedGinkgo [...] Refills, Maintenance, 10/25/19 14:14:00 EST, [facility], [facility] - [address], 168, cm, 10/25/19 [...]
--- OUTSIDE RECORDS SUMMARY | 2022-08-09 06:11 | XMS_ITS | Continuity of Care Document ---
:1970 Author Organization [facility] Address [address] [place] [address]- Care Team Providers Name Role Phone Gin Amaro MD Primary Care Physician Encounter [facility] Date(s): 11/01/20 - 12/01/20 [place] [address] [place] [address]- Allergies, Adverse Reactions, Alerts Substance Reaction Severity [...] (oldterm) 03/16/02 Given 1Admin Note: vis date 04/28/201232556Fsgho Note: Gave the VIS [id number] Note: 2nd Hep B Gave the VIS 77-25-55782Pfmal Note: 1 St of 3 VIS 11/29/20115Admin Note: VIS...11/20/2011 Medications Carafate 1 [...] Supraventricular Active tachycardia(Confirmed)2 1L4-5 Dr. Fiore at [facility] Dec. 05/p ablation 09/28 Dr. Romero Social History Social History Type Response Smoking Status Former smoker; Started at ag e: 21; Stopped at age: 41; entered on: 06/09/15 Sex
--- OUTSIDE RECORDS SUMMARY | 2022-08-09 06:11 | XMS_ITS | Continuity of Care Document ---
:1970 Author Organization [facility] Address [address] [place] [address]- Care Team Providers Name Role Phone Gin Amaro MD Primary Care Physician Encounter [facility] Date(s): 10/25/19 - 10/25/[address] [address]- [facility] Discharge Disposition: A-D/C Home Attending Physician: Ric Anguiano MD Admitting Physician: Ric Anguiano MD Referring Physician: Not on Staff, Referring [...] (oldterm) 03/16/02 Given 1Admin Note: vis date 04/28/201227839Cvkhv Note: Gave the VIS [id number] Note: 2nd Hep B Gave the VIS [id number] Note: 1 VIS 11/29/20115Admin Note: VIS...11/20/2011 Medications [...] 10/25/19 14:14:00 EST, Route to Pharmacy Electronically, [facility] - [address], 168, cm, [...] 10/12/19 11:21:22 EST, Route to Pharmacy Electronically, [facility]... Start Date: 10/12/19 Status: [...] adult(Confirmed) Chronic low back pain(Confirmed) 12/03/06 Active GERD (gastroesophageal reflux Active disease)(Confirmed) Herniation of nucleus Active pulposus(Confirmed)1 Hypercholesterolemia(Confirmed) Active Impaired fasting glucose(Confirmed) Active Frequent urination(Confirmed) Active Anxiety associated with Active depression(Confirmed) Sleep apnea(Confirmed) 02/15/14 Active Supraventricular Active tachycardia(Confirmed)2 1L4-5 Dr. Fiore at [facility] Dec. 05/p ablation 09/28 Dr. Romero Vital Signs Most recent to oldest 1 2 3 [Reference Range]: Height 168 cm (10/25/19 10:22 AM) Weight 127.2 kg (10/25/19 10:22 AM) Oxygen Saturation [94-100 99 % 100 % 99 % %] (10/25/19 1:52 PM) (10/25/19 12:46 PM) (10/25/19 10:22 AM) Pulse Rate [55-90 bpm] 75 bpm 76 bpm 77 bpm (10/25/19 1:52 PM) (10/25/19 12:46 PM) (10/25/19 10:22 AM) Blood Pressure 140/74 mm Hg 135/83 mm Hg 142/85 mm Hg [90-138/55-84 mm Hg] *H* (10/25/19 12:46 PM) *H* (10/25/19 1:52 PM) (10/25/19 10: 22 AM) Respiratory Rate [16-30 16 br/min 16 br/min 16 br/mi n br/min] (10/25/19 1:52 PM) (10/25/19 12:46 PM) (10/25/19 10:22 AM) Temperature [96.8-100.4 97.5 DegF DegF] (10/25/19 10:22 AM) Mode of Delivery (Oxygen) Room air Room air Room a ir (10/25/19 1:52 PM) (10/25/19 12:46 PM) (10/25/19 10:22 AM) Blood pressure sites Arm, left Arm, left Arm, left (10/25/19 1:52 PM) (10/25/19 12:46 PM) (10/25/19 10:22 AM) Temperature Route Oral (10/25/19 10:22 AM) Dry Weight 127.2 kg (10/25/19 10:22 AM) Social History Social History Type Response Smoking Status Former smoker; Started at ag e: 21; Stopped at age: 41; entered on: 06/09/15 Sex
--- OUTSIDE RECORDS SUMMARY | 2022-08-09 06:11 | XMS_ITS | Continuity of Care Document ---
:1970 Author Organization [facility] Address [address] [place] [address]- Care Team Providers Name Role Phone Gin Amaro MD Primary Care Physician Encounter [facility] Date(s): 08/05/20 - 09/04/20 [facility] [address] [address]- Allergies, Adverse Reactions, Alerts Substance Reaction Severity [...] (oldterm) 03/16/02 Given 1Admin Note: vis date 04/28/201274870Fmzhm Note: Gave the VIS [id number] Note: 2nd Hep B Gave the VIS 56-06-93538Swztp Note: 1 VIS 11/29/20115Admin Note: VIS...11/20/2011 Medications [...] Supraventricular Active tachycardia(Confirmed)2 1L4-5 Dr. Fiore at [place], [place] Dec. /p ablation 09/28 Dr. Romero Social History Social History Type Response Smoking Status Former smoker; Started at ag e: 21; Stopped at age: 41; entered on: 06/09/15 Sex
--- OUTSIDE RECORDS SUMMARY | 2022-08-09 06:11 | XMS_ITS | Continuity of Care Document ---
:1970 Author Organization [facility] Address [address] [place] [address]- Care Team Providers Name Role Phone Gin Amaro MD Primary Care Physician Encounter [facility] Date(s): 11/11/19 - 12/17/[address] [address]- [facility] Attending Physician: Cari Jones MD Admitting Physician: [...] (oldterm) 03/16/02 Given 1Admin Note: vis date 04/28/201289739Qqwzg Note: Gave the VIS 19-08-07728Phabr Note: 2nd Hep B Gave the VIS 90-55-35812Qjnye Note: VIS 11/29/20115Admin Note: VIS...11/20/2011 Medications Carafate [...] Supraventricular Active tachycardia(Confirmed)2 1L4-5 Dr. Fiore at [facility] Dec. 05/p ablation 09/28 Dr. Romero Social History Social History Type Response Smoking Status Former smoker; Started at ag e: 21; Stopped at age: 41; entered on: 06/09/15 Sex
[2022-08-09 06:17] LABS: UPreg QC Valid YES
[2022-08-09 06:19] LABS: Urine Pregnancy NEGATIVE (NEGATIVE)
--- NOTE | 2022-08-09 07:57 | PM.OP ---
Brief Operative Note Date of Service: 08/09/22 Pre-op diagnosis: Morbid obesity with comorbidities (see below) Post-op diagnosis: same Procedure: INITIAL PATIENT BMI ON PRESENTATION AT OUR OFFICE: 44.8 kg/m2 LAST BMI BEFORE SURGERY: 41.5 kg/m2 COMORBIDITIES: hypertension, sleep apnea on CPAP, hyperlipidemia, GERD, DJD, prediabetes, stress incontinence, nephrolithiasis, depression, anxiety, PTSD, tachycardia ?The patient presented to the Weight Management Program with significant obesity that was negatively impacting the patient's comorbidities as listed above.? The program is a phased program with a special focus on preoperative medical weight management to promote substantial weight loss and prepare the patients for the second phase of the program: bariatric surgery. The patient participated in an intensive weekly lifestyle ?intervention and exercise program during which the patient ?has lost between the initial office visit and the last preoperative visit 18lbs, or 6% of initial actual body weight. It was deemed appropriate for the patient to now have bariatric surgery. In light of the current Covid-19 pandemic and the well documented strong association of obesity and increased risk of worse outcomes if infected with Covid-19 (REFERENCES:https://pubmed.ncbi.nlm.nih.gov/62276462/,?https://pubmed.ncbi.nlm.nih.gov/68710101/), any delay in undergoing bariatric surgery may lead to the patient's worsening health condition and increased?risk of more severe Covid-19 disease if infected. In addition a recent?study from [facility] published in [facility] on 10/23/2021 ([email or web address]) found that, among patients with obesity, substantial weight loss achieved with surgery was associated with improved outcomes of COVID-19 infection. The findings suggest that obesity can be a modifiable risk factor for the severity of COVID-19 infection. In addition, the patient met the BMI-criteria for bariatric surgery based on the BMI on initial presentation. The patient should not be penalized for achieving such weight loss because ?it is not sustainable long-term without surgical intervention and it was achieved in preparation for bariatric surgery ?under my direction and based on my published research ([email or web address]).[email or web address] and?https://www.soard.org/article/[email or web address])96422-X/pdf) ?that a 10% preoperative weight loss improves long-term weight loss after surgery and reduces perioperative complications.? Insurance carriers such as [facility] have endorsed my recommendations ?and have included in their policies criteria to include a 10% preoperative weight loss requirement. PROCEDURE: Esophago-gastroscopy, laparoscopic sleeve gastrectomy and laparoscopic gastropexy INDICATIONS: This is a 51 year-old female who was electively scheduled for laparoscopic, possibly open sleeve gastrectomy. The risks and complications of the procedure were discussed with the patient in advance, particularly the possibility of ; pulmonary embolism; staple line leak; bleeding; GERD; cardiac, pulmonary, or renal complications; as well as long-term problems such as insufficient weight loss, vitamin deficiency, strictures, or ulcers. The patient understood all the risks, and was in agreement to proceed with surgery. DESCRIPTION OF PROCEDURE: After informed consent was obtained from the patient, the patient was given preoperative antibiotics, and was transferred to the operating room. After successful induction of general anesthesia, pneumatic compression devices were placed on both lower extremities. An upper endoscopy was performed next. The oropharynx and esophagus appeared to be within normal limits. There was no diaphragmatic hernia present consistent with the findings of the preoperative upper GI. The stomach was entered. Then after all fluid and air were suctioned and the stomach was fully decompressed, the scope was withdrawn and secured in the mid esophagus. The patient was then prepped and draped in the usual sterile manner, and abdominal access was established at the right upper quadrant with the Pat technique. A 12 mm blunt port was inserted, and the abdomen was insufflated with CO2 to a pressure of 15 mmHg. Under direct visualization, additional ports were placed, specifically two 5 mm Versi-step ports to the left upper quadrant, and a 5 mm Versi-Step port to the right upper quadrant. 1% lidocaine plain was used to infiltrate all port sites as well as all fascia defects. Following that, the patient was placed in a steep reverse Trendelenburg position. An additional 5 mm port was placed to the right flank for the Mediflex retractor that was used to retract the left lobe of the liver. The gastro-esophageal fat pad was opened with the ultrasonic device (Thunderbeat, Olympus) and the anterior esophagus and hiatus were exposed. The angle of His was opened with the ultrasonic device the fundus of the stomach from any diaphragmatic and splenic attachments. I then opened the gastrocolic ligament between the transverse colon and the greater curvature of the stomach with the ultrasonic device to enter the lesser sac and facilitate the ligation of the short gastric vessels. I started at a mid-point along the greater curvature and using the Thunderbeat, all short gastric vessels were divided all the way to the angle of His until the left chet was completely dissected at its entirety. I then divided the gastro-colic ligament distally to a distance of about 3-4 cm proximal to the pylorus. The stomach was then divided transversely with one Endo KAYLEIGH-45 purple and four KAYLEIGH-60 articulating orange loads using the AEON stapler and loads. Every effort was made that the gastric sleeve had a tubular shape and an even caliber throughout. Once the sleeve resection was completed, the staple line of the gastric sleeve was reinforced with Hemoclips. The resected stomach was retrieved without difficulty from the Pat port. A gastropexy was then performed in order to prevent postoperative GERD and partial gastric volvulus. Several interrupted 2.0 Surgidac sutures were placed between the sleeve's staple line and the previously divided greater omentum and gastro-colic ligament using the Endo-Stitch device. ?An upper endoscopy was performed. There was no narrowing at the GE junction. The scope was easily advanced all the way to the pylorus which was clearly visualized. There was no narrowing anywhere and the sleeve's caliber was even throughout. The sleeve's staple line was inspected and there was no evidence of ischemia, bleeding or dehiscence. At that point the gastroscope was withdrawn from the patient?s mouth while we were decompressing the bowel and the stomach from any remaining air. I looked into the lesser sac to see how the sleeve was situating and it was situating well. There was no bleeding from the staple line, spleen, or short gastric vessels. The Mediflex retractor was removed, and the undersurface of the liver was inspected and there was no bleeding. The patient was placed in supine position. I closed the fascial defect of the 12 mm port site with a figure of eight #1 Polysorb suture. Then 30cc of Ropivacaine plain with 10 mg of Dexamethasone were used to infiltrate the fascial closure as well as all skin incisions. A total of 7ml of Zynrelef was applied in the Pat wound. At this point, the abdomen was deflated, all ports were removed under direct vision, and no bleeding was noted from any of the port sites. The skin incisions were irrigated with saline and were closed with 4-0 absorbable monofilament sutures. Steri-Strips and OpSites were used to cover all incisions. The patient was extubated and was transferred in stable condition to the recovery room for further care. I was present and performed all boo parts of the procedure. Mr Oviedo was the assistant statistician. There were no residents to assist with this case. Danny Gonzales MD, PhD, FACS Surgeon: Connor Gonzales MD Anesthesia: GETA, local and other (TAP block and 7ml Zynrelef) Was an Stitching Machine Feeder Or Offbearer used for this Procedure?: No Stitching Machine Feeder Or Offbearer: Yasmani Oviedo Estimated blood loss (mL): 10 IV fluids (mL): 2,500 Urine output (mL): 0 (No Torres to record) Pathology: other (Stomach) Condition: stable Disposition: PACU
--- NOTE | 2022-08-09 08:01 | PM.PNGS ---
Subjective Subjective Date of Service: 08/10/22 Interval history: Patient has mild incisional pain, but was able to ambulate and use the incentive spirometer. She is tolerating phase 1 bariatric diet Physical Exam Vital Signs: Vital Signs: Last Vital Signs Temp 98.5 F 08/09/22 06:56 Pulse 66 08/09/22 06:56 Resp 16 08/09/22 06:56 BP 125/74 08/09/22 06:56 Pulse Ox 96 08/09/22 06:56 BMI result Body Mass Index 43.9 GI: Inspection: Yes normal to inspection, Yes incision (clean, dry and intact) and Yes obesity Extrem: Right lower extremity: normal to inspection (no calf tenderness) Left lower extremity: normal to inspection (no calf tenderness) Objective Data Active Medications Lactated Ringer's (Lr) 1,000 mls @ 100 mls/hr IVCONT .Q10H MICHEAL Lactated Ringer's (Lr) 1,000 mls @ 999 mls/hr IV .Q1H1M MICHEAL Stop: 08/09/22 08:15 Labs CBC & Chem 7: 08/10/22 05:41 08/10/22 05:41 Labs: Laboratory Results - last 24 hr 08/08/22 08/09/22 12:33 06:07 Urine Test NEGATIVE COVID-19 ([facility]ARTÍNEZ) Negative COVID-19 Clin Com See Note Procedures Date of Service Date of Service: 08/10/22 Progress Note: A&P Assessment and plan (1) Morbid obesity: Status: Acute Assessment and Plan: s/p laparoscopic sleeve gastrectomy and gastropexy Doing well Check am labs. If OK, will discharge home? (2) Hypertension: Status: Acute (3) Tachycardia: Status: Acute (4) GERD (gastroesophageal reflux disease): Status: Acute (5) Hyperlipidemia: Status: Acute (6) Prediabetes: Status: Acute (7) Nephrolithiasis: Status: Acute (8) Depression: Status: Acute (9) Anxiety: Status: Acute (10) PTSD (post-traumatic stress disorder): Status: Acute (11) Stress incontinence: Status: Acute (12) DJD (degenerative joint disease): Status: Acute (13) NIK (obstructive sleep apnea): Status: Acute (14) S/P laparoscopic sleeve gastrectomy: Status: Acute Time Spent With Patient Time: Total time spent is greater than 50% in coordination of care (as documented) at patient's floor/unit and/or counseling patient: Quality Stroke Does the patient have a stroke diagnosis?: No VTE Prior VTE?: No VTE Risk Level:: Surgical - moderate VTE Device Contraindication: N/A - Device Ordered VTE Drug Contraindication: Treatment Not Indicated
--- NOTE | 2022-08-09 10:17 | P.DS_ITS ---
DS: Providers Provider Date of Service: 08/10/22 Date of admission: 08/09/22 06:04 Primary care physician: Gin Amaro MD DS: Diagnosis Discharge Diagnosis (1) Morbid obesity: Status: Acute (2) Hypertension: Status: Acute (3) Tachycardia: Status: Acute (4) GERD (gastroesophageal reflux disease): Status: Acute (5) Hyperlipidemia: Status: Acute (6) Prediabetes: Status: Acute (7) Nephrolithiasis: Status: Acute (8) Depression: Status: Acute (9) Anxiety: Status: Acute (10) PTSD (post-traumatic stress disorder): Status: Acute (11) Stress incontinence: Status: Acute (12) DJD (degenerative joint disease): Status: Acute (13) NIK (obstructive sleep apnea): Status: Acute (14) S/P laparoscopic sleeve gastrectomy: Status: Acute DS: Summary Hospital Course Hospital Course: ADMITTING DIAGNOSIS: morbid obesity, NIK, anxiety, Depression, HLD, HTN, GERD ? DISCHARGE DIAGNOSIS: same, s/p laparoscopic sleeve gastrectomy ? PAST SURGICAL HISTORY: spine surgery, knee surgery ? PROCEDURE: upper endoscopy, laparoscopic sleeve gastrectomy ? DISCHARGE SUMMARY: ? History of Present Illness: ? The patient is a?51 year-old woman with a BMI of?47.2 kg/m2 and associated co- morbidities as described above. The patient had extensive work-up,lost?20.2 lbs preoperatively and was electively scheduled for laparoscopic, possible open sleeve gastrectomy and gastropexy. Risks and complications of the surgery were discussed with the patient in advance, particularly the possibility of , pulmonary embolism, anastomotic leak, bleeding, bowel injury, GERD, cardiac, renal or pulmonary complications. The patient understood all the risks and was in agreement with the surgical plan. ? Hospital Course: ? The patient underwent an uneventful laparoscopic sleeve gastrectomy with gastropexy on the day of admission. Postoperatively, the patient was transferred to the surgical floor. The patient received IV Acetaminophen and IV dilaudid for pain control. Patient was started on bariatric phase 1 diet POD #0. On postoperative day one, the patient was feeling well without nausea, vomiting, fevers, or tachycardia. The patient had some mild incisional pain and the abdomen was soft. ? On the morning of postoperative day one, the patient was continued on 1 ounce of water or ice every half hour. During the day, the patient did fairly well, having some incisional pain, but able to ambulate adequately and to tolerate liquids well. ? Since the patient is doing well, we decided that the patient was ready to be discharged. The patient was given instructions to follow-up with me next week and to call my office for any fever over 101, persistent abdominal pain, nausea, vomiting, GERD, symptoms of DVT such as calf tenderness, or leg swelling, or pulmonary embolism such as chest pain or shortness of breath. The patient was also instructed to drink 40-60 ounces of liquids per day using the 1-ounce cups. The patient had been given prescriptions for Tylenol for pain, Zofran prn for nausea, and pantoprazole and carafate previously. The patient was encouraged to ambulate and use the incentive spirometer. The patient was allowed to shower, but no baths, and encouraged to stay active at home. All of these instructions were given to the patient personally. All questions were answered and the patient understood all instructions, the instructions were also given to the patient in print. Time Spent with Patient Time attestation: Total time spent providing and/or coordinating discharge services: Discharge coordination time: Less than 30 minutes Quality: Safe Use of Opioids Does Pt have an Active Cancer Diagnosis on the Problem List?: No Quality: Stroke Does the patient have a stroke diagnosis?: No Physical Exam Vital Signs: Vital Signs: Last Vital Signs Temp 98.5 F 08/09/22 06:56 Pulse 66 08/09/22 06:56 Resp 16 08/09/22 06:56 BP 125/74 08/09/22 06:56 Pulse Ox 96 08/09/22 06:56 BMI result Body Mass Index 43.9 DS: Data Data Completed and Pending Pending studies at discharge: Pending at discharge 08/09/22 09:36 Surgical [PTH] Routine Labs on day of discharge: Laboratory Results - last 24 hr 08/08/22 08/09/22 12:33 06:07 Urine Test NEGATIVE COVID-19 ([facility]NEZ) Negative COVID-19 Clin Com See Note Discharge Plan Discharge Anticipated Discharge Date/Time: 08/10/22 10:00 Patient Disposition: Home, Self-Care Discharge Diagnosis: s/p laparoscopic sleeve gastrectomy Referrals: Gin Amaro MD [Primary Care Provider] - 1 Week Discharge Medications: Continued cyclobenzaprine 10 mg tablet 10 mg PO BEDTIME PRN (Reason: muscle spasm) Qty: 7 0RF lidocaine 5 % adhesive patch,medicated 1 patch topical DAILY PRN (Reason: pain) Qty: 15 0RF Rx Instructions: leave on most painful area for up to 12 hrs metoprolol succinate 25 mg tablet extended release 24 hr 12.5 mg PO DAILY Label Comments: Patient states off for 2 weeks now - only will take med if symptomatic from tachycardia- states Inspector Aide was in agreement diazepam 5 mg tablet 2.5 mg PO DAILY PRN (Reason: anxiety) pantoprazole 40 mg tablet,delayed release (DR/EC) 40 mg PO DAILY Qty: 30 2RF sucralfate 100 mg/mL suspension 10 ml PO BID Qty: 400 2RF ondansetron HCl 4 mg tablet 4 mg PO Q12H Qty: 20 0RF Discontinued cholecalciferol (vitamin D3) 125 mcg (5,000 unit) capsule 125 mcg PO DAILY Qty: 30 2RF omeprazole 20 mg capsule,delayed release(DR/EC) 20 mg PO DAILY oxycodone-acetaminophen [Percocet] 5-325 mg tablet 1 tab PO Q6H PRN (Reason: Pain) ibuprofen 200 mg tablet 200 mg PO Q6H PRN (Reason: Pain) polyethylene glycol 3350 [Miralax] 17 gram powder in packet 17 g PO DAILY Qty: 14 0RF Rx Instructions: Mix each packet with 8oz of water and do 7 packets on 08/07/22 and another 7 packets on 08/08/22 Activity on Discharge: No heavy lifting Stand Alone Forms: Patient Portal Discharge page Care Plan Goals: weight loss Health Concerns: morbid obesity Plan of Treatment: No tub baths, sex or returning to work until discussed at first post op appointment. No exercise, alcohol, tobacco or illegal drug use. Continue to use incentive spirometer hourly while awake. Walk in home for 5- 10 minutes every 2 hours during the first week. Follow all instructions in the bariatric handbook and call with any questions.Discharge Instructions 1. Please call your doctor or come back to the emergency room should any new symptoms arise. 2. You will receive a courtesy call from [facility] 24-48 hours after discharge. 3. Activity: abstain from alcohol, practice limited stair climbing, no bending, no driving, no exercise, no illicit substances, no lifting, no sex, no tub bath, no work. 4. Diet: continue as discussed with Dr. Gonzales. 5. Dressing Change/Wound Care: Your incision is covered by clear bandages and guaze underneath. If the area is tender, you may apply an ice pack for short intervals (no more than 20 minutes on, followed by at least 20 minutes off). Do not apply heat. Do not use creams, lotions, or topical antibiotics unless instructed to do so by your surgeon. These can cause infection or allergic reaction. 6. Call your doctor if: - Your temperature exceeds 101.5 F - You experience excessive pain or swelling - You have an unexpected reaction to medication - You have excessive bleeding - You experience continued vomiting/nausea - Your incision begins to separate - Your incision shows signs of infection such as increased redness, swelling, excessive pain, heat, or drainage (light blood or clear fluid is normal) 7. General instructions: No lifting greater than 5 lbs for the next 4 weeks[address] driving within 24 hours of taking narcotic pain medications. If you do not move your bowels in the next 2 days, please take milk of magnesia over the counter. Please follow the post op diet and do not advance your diet until you are seen in the office in about 2 weeks. Please walk around your home every hour or two to prevent blood clots from forming in your legs. You do not need to wake from sleeping to walk. Please sleep in a bed or couch to prevent kinking at the hips and knees. Please take your incentive spirometer (your lung draw tender) home with you and use it for the next few days to prevent pneumonias. You may shower, no hot tubs, baths or swimming pools. Please call the office with any questions or concerns such as increasing abdominal pain, fever, chills, shortness of breath, chest pain, leg pain or swelling, or redness or drainage from your incisions. Please stay on stage 3 diet which includes sugar free clear liquids such as ice pops and jello and broth and crystal light. Avoid all carbonation. Please drink 3 protein shakes with at least 25-30 grams of protein daily or 3 of the Celebrate 4:1 shakes which can be purchased in our office. The Celebrate shakes have all of the bariatric vitamins you need if you consume these shakes. If you are drinking other protein shakes, you will need to purchase the Celebrate multivitamins and calcium that we provide in the office (they will provide all the vitamins you need). Please make sure you are consuming at least 40-60 ounces of water in addition to your 3 protein shakes daily. Do not hesitate to contact the office with any questions at . The patient's medical history has been reviewed and they are considered low risk for post op DVT and therefore DVT prophylaxis is not considered necessary. Travel after surgery was reviewed. The patient has not disclosed any travel plans during the first 30 days after surgery and they have been advised that within the first 30 days after surgery any bus, plane, train or car travel over 2 hours in duration is contraindicated due to the possibility of developing blood clots from immobility. Any travel, needs to include periods of ambulation of 10 minutes in duration every 2 hours.? The patient was instructed to discuss any plans for travel during this period with their bariatric surgeon. Assessment: stable, s/p laparoscopic sleeve gastrectomy
[2022-08-09] MEDS: Metoclopramide HCl 10 MG/2 ML VIAL IVPUSH ×2 (10:38→16:59)
[2022-08-09] MEDS: fentaNYL citrate/PF 100 MCG/2 ML VIAL 25 MCG IVPUSH ×3 (10:47→12:28)
[2022-08-09] MEDS: Famotidine/PF 20 MG/2 ML VIAL IVPUSH ×2 (10:52→19:46)
[2022-08-09 11:16] LABS: Hematocrit 40.4 % (37.0-47.0); Hemoglobin 13.6 g/dl (12.0-16.0)
[2022-08-09 11:24] LABS: Anion Gap 15 (12-20); Blood Urea Nitrogen 13 mg/dL (9-16); Calcium 8.7 mg/dL (8.4-10.2); Carbon Dioxide 23 mmol/L (22-29); Chloride 106 mmol/L (96-108); Creatinine Clr Calc Pharmacy 117.1; Estimated Glomerular Filt Rate > 60; Glucose Random 158 mg/dL (60-115); Potassium 3.9 mmol/L (3.3-5.1); Sodium 140 mmol/L (135-145)
[2022-08-09] MEDS: Lactated Ringers 1,000 ML 125 ML IVCONT ×2 (11:25→19:41)
--- NOTE | 2022-08-09 11:41 | PHA.MEDREC ---
Pharmacy Consult ? Medication Reconciliation Pharmacy has completed the medication reconciliation. Checked med rec done by nurse
[2022-08-09] MEDS: ceFAZolin Sodium/Dextrose,Iso 2 GM/50 ML PIGGYBACK IV (14:38)
[2022-08-09] MEDS: ondansetron HCL 4 MG/2 ML VIAL IVPUSH ×2 (14:38→21:47)
[2022-08-09] MEDS: 0.9 % Sodium Chloride Flush 3 ML SYRINGE IVFLUSH ×2 (14:38→19:47)
[2022-08-09] MEDS: HYDROmorphone HCl 0.5 MG/0.5 ML SYRINGE 0.25 MG IVPUSH ×2 (16:59→21:47)
[2022-08-10] MEDS: HYDROmorphone HCl 0.5 MG/0.5 ML SYRINGE 0.25 MG IVPUSH (02:14)
[2022-08-10] MEDS: Metoclopramide HCl 10 MG/2 ML VIAL IVPUSH (02:15)
[2022-08-10] MEDS: Lactated Ringers 1,000 ML 125 ML IVCONT (02:15)
[2022-08-10 03:42] VITALS: BP 131/63; PULSE 85; RESP 17; TEMP 36.7; O2SAT 95
[2022-08-10 06:05] LABS: MANUAL DIFF FLAG NO
[2022-08-10 06:10] LABS: Basophils Percent Auto 0.2 % (0-2); Eosinophils Percent Auto 0.1 % (0-4); Hematocrit 36.8 % (37.0-47.0); Hemoglobin 12.2 g/dl (12.0-16.0); Imm Gran Abs Auto 0.05 X10*3/uL (0.00-0.03); Imm Gran Pct Auto 0.4 % (0.0-0.4); Lymphocytes Absolute Auto 1.7 X10*3/uL (1.2-4.9); Lymphocytes Percent Auto 13.3 % (20-40); Mean Corpuscular HGB Conc 33.2 g/dl (31.0-35.0); Mean Corpuscular Hemoglobin 31.4 pg (27.0-33.0); Mean Corpuscular Volume 94.8 fL (80.0-98.0); Mean Platelet Volume 9.5 fL (9.4-12.3); Monocytes Percent Auto 7.9 % (2-11); Neutrophils Percent Auto 78.1 % (45-73); Platelet Count 271 X10*3/uL (160-400); Red Blood Count 3.88 X10*6/uL (4.20-5.50); Red Cell Distribution Width 12.2 % (11.0-16.0); White Blood Count 12.8 X10*3/uL (4.8-10.8)
[2022-08-10 06:24] LABS: Anion Gap 16 (12-20); Blood Urea Nitrogen 7 mg/dL (9-16); Calcium 8.7 mg/dL (8.4-10.2); Carbon Dioxide 21 mmol/L (22-29); Chloride 107 mmol/L (96-108); Creatinine Clr Calc Pharmacy 132.7; Estimated Glomerular Filt Rate > 60; Glucose Random 97 mg/dL (60-115); Potassium 3.9 mmol/L (3.3-5.1); Sodium 140 mmol/L (135-145)
[2022-08-10] MEDS: ondansetron HCL 4 MG/2 ML VIAL IVPUSH (06:24)
[2022-08-10 07:56] VITALS: BP 140/71; PULSE 68; RESP 18; TEMP 36.7; O2SAT 99
[2022-08-10] MEDS: Metoprolol Succinate ER 12.5 MG HALFTAB.ER.24H PO (08:20)
[2022-08-10] MEDS: Famotidine/PF 20 MG/2 ML VIAL IVPUSH (08:20)
--- NOTE | 2022-08-10 09:53 | MHC.CM.PN ---
FEMALE 51 S/P GASTRIC SLEEVE SURGERY LIVES WITH FAMILY. SHE USES A CANE . SHE RECEIVES ASSIST PRN WITH SHOWER FROM SPOUSE. SHE IS DISCHARGED TO HOME SELF CARE. [facility] WILL PROVIDE TRANSPORTATION HOME.
--- NOTE | 2022-08-10 13:11 | HO.POSTANES ---
Post Anesthesia Evaluation Post Anesthesia Evaluation Vital Signs: Vital Signs Temp Pulse Resp BP Pulse Ox O2 Del Method O2 Flow Rate 08/10/22 10:02 Room Air 08/10/22 07:56 98.1 F 68 18 140/71 H 99 Nasal Cannula 2.0 08/10/22 03:42 98.1 F 85 17 131/63 95 Room Air Anesthesia: General Endotracheal-GETA Mental Status: Awake Pain Control: Satisfactory Nausea/Vomiting: None Hydration: Adequate Anesthesia-Related Issues: No Anes. Related Issues
== END 2022-08-10 10:42 | disposition home or self-care (01) | DRG 403 ==
LOC: HO.SSSA 10:19 → HO.S3 11:35
PROVIDERS: Physician Assistant Surgical; Admitting Provider Surgery; PCP Internal Medicine; Visit Provider Surgery
PROC: 0DB64Z3 Excision of Stomach, Percutaneous Endoscopic Approach, Vertical (ICD-10-PCS; CPT 43845; principal; 2022-08-09 07:30)
DX: E66.01 Morbid (severe) obesity due to excess calories (principal); F50.81 Binge eating disorder; E78.5 Hyperlipidemia, unspecified; K21.9 Gastro-esophageal reflux disease without esophagitis; G47.33 Obstructive sleep apnea (adult) (pediatric); Z20.822 Contact with and (suspected) exposure to COVID-19; Z68.41 Body mass index [BMI] 40.0-44.9, adult; I10 Essential (primary) hypertension; N39.3 Stress incontinence (female) (male); M19.90 Unspecified osteoarthritis, unspecified site; R73.03 Prediabetes; F41.9 Anxiety disorder, unspecified; F43.10 Post-traumatic stress disorder, unspecified; Z87.442 Personal history of urinary calculi; Z87.891 Personal history of nicotine dependence; Z88.8 Allergy status to other drugs, medicaments and biological substances; Z79.899 Other long term (current) drug therapy
CPT/HCPCS: 36415; 80048; 80053; 80061; 81025; 83036; 83525; 84443; 85014; 85018; 85025; 85610; 85730; 86140; 86850; 86900; 86901; 87635; 88307; 88342; A4649; C9088; J0131; J0690; J1100; J1170; J2250; J2405; J2550; J2765; J2795; J3010

== ENCOUNTER 2022-08-18 19:21 | Inpatient (IN) | payer MEDICAID, SELFPAY ==
--- NOTE | ~2022-08-18 | CT_ITS ---
EXAMINATION: CT ABDOMEN AND PELVIS WITH CONTRAST CLINICAL INFORMATION: Mid abdominal pain status post gastric sleeve COMPARISON: 08/04/2022 TECHNIQUE: Multidetector volumetric images were obtained from the superior aspect of the liver through the pubic symphysis following administration 100 mL of Omnipaque 350 intravenous contrast. Sagittal and coronal reformatted images were obtained on the technologist's workstation. Oral contrast: No This CT examination was performed using dose optimization techniques as appropriate, variously including the following: *Automated exposure control *Adjustment of mA and/or kV according to patient size (this includes techniques or standardized protocols for targeted exams where dose is matched to indication/reason for exam; i.e. extremities or head) *Use of iterative reconstruction technique DLP: 1044 mGy-cm FINDINGS: LUNG BASES: The visualized lung bases are unremarkable. LIVER, GALLBLADDER, AND BILIARY TREE: The liver is normal in size, shape, and attenuation. Subcentimeter cyst present in hepatic segment 5 inferiorly. No suspicious liver lesion or biliary ductal dilatation is present. There is apparent thrombosis of the anterior division of the right portal vein and left portal vein. Posterior division of the right portal vein and main portal vein are patent. Gallbladder unremarkable. PANCREAS: Unremarkable. SPLEEN: Unremarkable. ADRENAL GLANDS: Unremarkable. KIDNEYS AND URETERS: The kidneys are normal in size, shape, and attenuation. No hydronephrosis, hydroureter, or calculi seen. No perinephric stranding. BLADDER: Unremarkable. GASTROINTESTINAL TRACT: Interval sleeve gastrectomy. Pancolonic diverticulosis. No evidence of diverticulitis. Normal appendix. Small bowel unremarkable. ABDOMINAL WALL: A cutaneous fat stranding present in the epigastric midline and right upper quadrant at the site of laparoscopic portal entry. There is a tiny omental fat-containing hernia at the site of the midline lap port entry. LYMPH NODES: Normal. VASCULAR: Thrombosis of the left portal vein and distal branches, and anterior division of the right portal vein. The posterior division of the right portal vein patent. Main portal vein and superior mesenteric vein are patent. PELVIC VISCERA: Uterus and adnexa unremarkable. OSSEOUS STRUCTURES: No acute or suspicious osseous abnormalities. 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 The posterior division of the right portal vein and main portal vein are patent. * Interval sleeve gastrectomy. * Pancolonic diverticulosis without evidence of diverticulitis. * Tiny omental fat-containing hernia at the site of the epigastric midline lap port entry. This critical result was discussed with Dr Colon at 08/19/2022 4:09 AM and it was ascertained that the content and urgency of the report was understood at the time of direct communication.
--- NOTE | ~2022-08-18 | US_ITS ---
EXAMINATION: US VENOUS ULTRASOUND WITH DOPPLER LOWER EXTREMITY, BILATERAL CLINICAL INFORMATION: Hypercoagulability, portal vein thrombosis, rule out deep venous thrombosis. COMPARISON: None TECHNIQUE: Ultrasound of the deep veins is performed from the hip to the calf with compression sonography and color and pulse Doppler assessment. Spectral analysis with color-flow imaging is performed. FINDINGS: RIGHT: There is normal venous compression and respiratory variation and augmented flow. The visualized common femoral vein, superficial femoral vein, profunda femoral vein, popliteal vein, and the trifurcation region shows no evidence of deep venous thrombosis. No right popliteal cyst. The subcutaneous soft tissues are unremarkable. LEFT: There is normal venous compression and respiratory variation and augmented flow. The visualized common femoral vein, superficial femoral vein, profunda femoral vein, popliteal vein, and the trifurcation region shows no evidence of deep venous thrombosis. A left popliteal cyst. The subcutaneous soft tissues are unremarkable. If the patient's symptoms persist, followup ultrasound in 5 days 7 days might be of value to exclude proximal propagation from a non-visualized calf vein. US/US venous duplex LE BI IMPRESSION: No evidence for deep venous thrombosis in the visualized veins of the bilateral lower extremities.
--- NOTE | ~2022-08-18 | US_ITS ---
EXAMINATION: US DUPLEX ARTERIAL AND VENOUS ABDOMEN CLINICAL INFORMATION: Portal vein thrombus COMPARISON: Previous CT of the abdomen and pelvis 08/19/2022 TECHNIQUE: Doppler color and grayscale evaluation of the liver vasculature. FINDINGS: The left portal vein is occluded. The extrahepatic, main and right portal veins are patent with appropriate pedal flow. The main right and left hepatic arteries are patent. Main hepatic artery peak systolic velocity measures 145 cm/s. The middle, right and left hepatic veins are patent with normal waveform. The IVC is patent with normal waveform. The splenic vein is patent with appropriate hepatopedal flow. The spleen measures 12.5 cm in length. There is no ascites. No collateral vessels are seen. US/US duplex arterial venous comp IMPRESSION: Left portal vein thrombus similar to recent CT scan.
[2022-08-18 19:25] VITALS: BP 128/75; PULSE 98; RESP 18; TEMP 37.3; O2SAT 95; BMI 42.3
[2022-08-18 19:48] LABS: COVID-19 Test Negative (Negative); IDNOW Serial# 55D5AD1C
[2022-08-18 23:22] VITALS: BP 121/65; PULSE 87; RESP 18; TEMP 37.3; O2SAT 96
[2022-08-18 23:42] VITALS: TEMP 38.3
[2022-08-18 23:42] LABS: MANUAL DIFF FLAG NO
[2022-08-18 23:44] LABS: Basophils Percent Auto 0.3 % (0-2); Eosinophils Absolute Auto 0.1 X10*3/uL (0.0-0.4); Eosinophils Percent Auto 0.7 % (0-4); Hematocrit 38.5 % (37.0-47.0); Hemoglobin 12.8 g/dl (12.0-16.0); Imm Gran Abs Auto 0.04 X10*3/uL (0.00-0.03); Imm Gran Pct Auto 0.4 % (0.0-0.4); Lymphocytes Absolute Auto 1.7 X10*3/uL (1.2-4.9); Lymphocytes Percent Auto 15.9 % (20-40); Mean Corpuscular HGB Conc 33.2 g/dl (31.0-35.0); Mean Corpuscular Hemoglobin 31.8 pg (27.0-33.0); Mean Corpuscular Volume 95.8 fL (80.0-98.0); Mean Platelet Volume 9.8 fL (9.4-12.3); Monocytes Absolute Auto 1.3 X10*3/uL (0.1-1.2); Monocytes Percent Auto 12.1 % (2-11); Neutrophils Absolute Auto 7.7 x10*3/uL (2.0-8.3); Neutrophils Percent Auto 70.6 % (45-73); Platelet Count 286 X10*3/uL (160-400); Red Blood Count 4.02 X10*6/uL (4.20-5.50); White Blood Count 10.9 X10*3/uL (4.8-10.8)
--- NOTE | 2022-08-18 23:46 | ED_ITS ---
HPI - Fever General Chief Complaint: Fever Stated Complaint: Fever and Abdominal pain/Post surgery Time Seen by Provider: 08/18/22 23:22 Source: patient Mode of arrival: ambulatory Limitations: no limitations History of Present Illness HPI Narrative: Patient comes emergency room complaining of intermittent fever and epigastric abdominal pain for 4 days. Patient had a laparoscopic sleeve gastric surgery on 08/14/2022. COVID test is negative. Patient denies any vomiting or diarrhea, no URI or UTI symptoms. Related Data Home Medications Medication Instructions Recorded Confirmed oxycodone-acetaminophen 5 mg-325 1 tab PO Q6H PRN Pain 01/19/22 08/14/22 mg tablet (Percocet) diazepam 5 mg tablet 2.5 mg PO DAILY PRN anxiety 05/29/22 08/14/22 Previous Rx's Medication Instructions Recorded pantoprazole 40 mg tablet,delayed 40 mg PO DAILY #30 tabs 07/27/22 release sucralfate 100 mg/mL oral 10 ml PO BID #400 mL 07/27/22 suspension cyclobenzaprine 10 mg tablet 10 mg PO BEDTIME PRN muscle spasm 08/04/22 #7 tabs lidocaine 5 % topical patch 1 patch topical DAILY PRN pain #15 08/04/22 ea acetaminophen 500 mg capsule 500 mg PO Q6H PRN fever or pain 08/19/22 #14 caps Allergies Allergy/AdvReac Type Severity Reaction Status Date / Time sertraline [SERTRALINE] Allergy Unknown SLOWED Verified 08/14/22 10:35 BREATHING Review of Systems Review of Systems: Constitutional : Complaining of fever and chills, has lost 9 lb in 1 week status post gastric sleeve surgery ENT/Mouth : No Hearing loss, No Ear Pain, No Nasal Congestion, No Sinus Pain, No Hoarseness, No sore throat, No Rhinorrhea, No Swallowing Difficulty Eyes: No Eye Pain, No Swelling, No Redness, No Foreign Body, No Discharge, No Vision Changes Cardiovascular : No Chest Pain, No SOB, No Dyspnea on Exertion, No Orthopnea, No Edema, No Palpitations Respiratory : No Cough, No Sputum, No Wheezing, No Smoke Exposure, No Dyspnea Gastrointestinal : Complaining of epigastric pain, No Nausea, No Vomiting, No Diarrhea, No Constipation, no hematochezia or melena Genitourinary : no irregular bleeding, No Dysuria, No Urinary Frequency, No Hematuria, No Urinary Incontinence, No Urgency, No Flank Pain, No Urinary Flow Changes, No Hesitancy Musculoskeletal : No joint pain, No Myalgias, No Joint Swelling Skin : No Skin Lesions, No rash Neuro : No Weakness, No Numbness, No Paresthesias, No Loss of Consciousness, No Dizziness, No Headache Psych : No Anxiety/Panic, No Depression, No SI/HI/AH/VH, No Social Issues, Heme/Lymph: No Bruising, No Bleeding,No Lymphadenopathy Endocrine : No Polyuria, No Polydipsia, No Temperature Intolerance [facility] Past Medical History Medical History Anxiety Binge eating disorder Depression DJD (degenerative joint disease) GERD (gastroesophageal reflux disease) History of deviated nasal septum Hyperlipidemia Hypertension Morbid obesity Nephrolithiasis NIK (obstructive sleep apnea) Prediabetes PTSD (post-traumatic stress disorder) Stress incontinence Tachycardia Surgical History Hx of arthroscopic knee surgery Hx of prior ablation treatment Hx of spinal surgery Family History Family History Mother Hypertension Depression Ovarian cancer in remission Father Deep vein thrombosis Hypertension Spine pain Seizure Brother Migraines Son Obesity Son No problems noted. Social History Social History Are you a primary career services manager to a significant other at home: No Do you presently have visiting nurse or other home services: No Alcohol intake: never Patient Tobacco Use Status: Former Tobacco user Quit Date: 10 yrs ago Tobacco use type: Cigarette Advance Directives: No Advance Directives Information Provided: Yes service: No Physical Exam Vital Signs: Vital Signs: Last Vital Signs Temp 101.0 F H 08/18/22 23:42 Pulse 87 08/18/22 23:22 Resp 18 08/18/22 23:22 BP 121/65 08/18/22 23:22 Pulse Ox 96 08/18/22 23:22 O2 Del Method 08/18/22 23:22 BMI result Body Mass Index 42.3 Const: Other: Appearance: Alert. Oriented X3. No acute distress. Eyes: Pupils equal, round and reactive to light. ENT: Pharynx normal. Neck: Normal inspection. Neck supple. No lymph nodes noted. No crepitus CVS: Normal heart rate and rhythm. Pulses normal. Normal S1 and S2 Respiratory: No respiratory distress. Breath sounds normal. No Wheezing. No rales Abdomen: Soft, mild pain to palpation in epigastric area, surgical site wounds healing well, no signs of infection Skin: Skin warm and dry. Normal skin color. Normal skin turgor. Extremities: No lower extremity edema. No Lacerations. No Rash Neuro: Oriented X 3. No motor deficit. No sensory deficit. Moving all extremities. No slurred speech. CN 2 through 12 grossly intact Psych: calm, cooperative, normal affect Course Course Course Narrative: I discussed the patient with Yasmani garvin who also spoke with Dr. Gonzales. Patient is limited in the amount of contrast that she can take p.o.. 100 mL will suffice Patient was given 650 mg of rectal Tylenol, patient had a fever of 101 F COVID test is negative. Patient likely has a viral syndrome. CT scan of the abdomen with p.o. contrast (max 100 mL) and IV contrast is pending. Sign-out given to Dr. Gamble MDM - Fever Lab Data Result diagrams: 08/18/22 23:32 08/18/22 23:32 Labs: Lab Results 08/18/22 08/18/22 08/18/22 Range/Units 19:30 23:32 23:32 WBC 10.9 H (4.8-10.8) X10*3/uL RBC 4.02 L (4.20-5.50) X10*6/uL Hgb 12.8 (12.0-16.0) g/dl Hct 38.5 (37.0-47.0) % MCV 95.8 (80.0-98.0) fL MCH 31.8 (27.0-33.0) pg MCHC 33.2 (31.0-35.0) g/dl RDW 12.0 (11.0-16.0) % Plt Count 286 (160-400) X10*3/uL MPV 9.8 (9.4-12.3) fL Immature Gran % (Auto) 0.4 (0.0-0.4) % Neut % (Auto) 70.6 (45-73) % Lymph % (Auto) 15.9 L (20-40) % Haakon % (Auto) 12.1 H (2-11) % Eos % (Auto) 0.7 (0-4) % Baso % (Auto) 0.3 (0-2) % Lymph # (Auto) 1.7 (1.2-4.9) X10*3/uL [place]akon # (Auto) 1.3 H (0.1-1.2) X10*3/uL Eos # (Auto) 0.1 (0.0-0.4) X10*3/uL Baso # (Auto) 0.0 (0.0-0.2) X10*3/uL Abs Immat Gran (auto) 0.04 H (0.00-0.03) X10*3/uL Absolute Neuts (auto) 7.7 (2.0-8.3) x10*3/uL Absolute Nucleated RBC 0.000 (0.0-0.012) X10*3/uL Nucleated RBC % (auto) 0.0 (0.0-0.2) /100WBC Sodium 139 (135-145) mmol/L Potassium 4.4 (3.3-5.1) mmol/L Chloride 102 (96-108) mmol/L Carbon Dioxide 24 (22-29) mmol/L Anion Gap 17 (12-20) BUN 10 (9-16) mg/dL Creatinine 0.72 (0.5-1.4) mg/dL Estim Creat Clear Calc 122.6 Estimated GFR > 60 Random Glucose 106 (60-115) mg/dL Calcium 9.1 (8.4-10.2) mg/dL Urine Color Urine Appearance Urine pH (5.0-9.0) Ur Specific [place] (1.005-1.025) Urine Protein (Neg-Trace) mg/dL Urine Glucose (UA) (Negative) mg/dL Urine Ketones (Negative) mg/dL Urine Blood (Negative) Urine Nitrite (Negative) Ur Leukocyte Esterase (Negative) COVID-19 ([facility]ART[facility]NEZ) Negative (Negative) COVID-19 Clin Com See Note 08/19/22 Range/Units 01:02 WBC (4.8-10.8) X10*3/uL RBC (4.20-5.50) X10*6/uL Hgb (12.0-16.0) g/dl Hct (37.0-47.0) % MCV (80.0-98.0) fL MCH (27.0-33.0) pg MCHC (31.0-35.0) g/dl RDW (11.0-16.0) % Plt Count (160-400) X10*3/uL MPV (9.4-12.3) fL Immature Gran % (Auto) (0.0-0.4) % Neut % (Auto) (45-73) % Lymph % (Auto) (20-40) % [place] % (Auto) (2-11) % Eos % (Auto) (0-4) % Baso % (Auto) (0-2) % Lymph # (Auto) (1.2-4.9) X10*3/uL [place] # (Auto) (0.1-1.2) X10*3/uL Eos # (Auto) (0.0-0.4) X10*3/uL Baso # (Auto) (0.0-0.2) X10*3/uL Abs Immat Gran (auto) (0.00-0.03) X10*3/uL Absolute Neuts (auto) (2.0-8.3) x10*3/uL Absolute Nucleated RBC (0.0-0.012) X10*3/uL Nucleated RBC % (auto) (0.0-0.2) /100WBC Sodium (135-145) mmol/L Potassium (3.3-5.1) mmol/L Chloride (96-108) mmol/L Carbon Dioxide (22-29) mmol/L Anion Gap (12-20) BUN (9-16) mg/dL Creatinine (0.5-1.4) mg/dL Estim Creat Clear Calc Estimated GFR Random Glucose (60-115) mg/dL Calcium (8.4-10.2) mg/dL Urine Color Yellow Urine Appearance Clear Urine pH 7.0 (5.0-9.0) Ur Specific [place] 1.010 (1.005-1.025) Urine Protein Negative (Neg-Trace) mg/dL Urine Glucose (UA) Negative (Negative) mg/dL Urine Ketones 15 (Negative) mg/dL Urine Blood Negative (Negative) Urine Nitrite Negative (Negative) Ur Leukocyte Esterase Negative (Negative) COVID-19 ([facility]Z) (Negative) COVID-19 Clin Com Discharge Plan Discharge Clinical Impression: Acute viral syndrome Patient Disposition: Home, Self-Care Instructions: Viral Syndrome (ED) Additional Instructions: Please follow-up with your primary care physician tomorrow. If you have any worsening or new symptoms, please return to the emergency room or call 911 Prescriptions: New acetaminophen 500 mg capsule 500 mg PO Q6H PRN (Reason: fever or pain) Qty: 14 0RF No Action cyclobenzaprine 10 mg tablet 10 mg PO BEDTIME PRN (Reason: muscle spasm) Qty: 7 0RF Hold Instructions: Resume on 08/24/22. lidocaine 5 % adhesive patch,medicated 1 patch topical DAILY PRN (Reason: pain) Qty: 15 0RF Rx Instructions: leave on most painful area for up to 12 hrs oxycodone-acetaminophen [Percocet] 5-325 mg tablet 1 tab PO Q6H PRN (Reason: Pain) diazepam 5 mg tablet 2.5 mg PO DAILY PRN (Reason: anxiety) pantoprazole 40 mg tablet,delayed release (DR/EC) 40 mg PO DAILY Qty: 30 2RF sucralfate 100 mg/mL suspension 10 ml PO BID Qty: 400 2RF
[2022-08-19] MEDS: Acetaminophen Supp 650 MG SUPP.RECT PR (00:01)
[2022-08-19] MEDS: 0.9 % Sodium Chloride 2,000 ML 999 ML IVCONT (00:02)
[2022-08-19 00:22] LABS: Anion Gap 17 (12-20); Blood Urea Nitrogen 10 mg/dL (9-16); Calcium 9.1 mg/dL (8.4-10.2); Carbon Dioxide 24 mmol/L (22-29); Chloride 102 mmol/L (96-108); Creatinine Clr Calc Pharmacy 122.6; Estimated Glomerular Filt Rate > 60; Glucose Random 106 mg/dL (60-115); Potassium 4.4 mmol/L (3.3-5.1); Sodium 139 mmol/L (135-145)
[2022-08-19 01:10] LABS: Appearance Urine Clear; Color Urine Yellow; Glucose Urine UA Negative (Negative); Leukocyte Esterase Urine Negative (Negative); Nitrite Urine Negative (Negative); Urine Blood Negative (Negative); Urine Ketones 15 mg/dL (Negative); Urine Protein Negative (Neg-Trace)
[2022-08-19] MEDS: iohexoL 350 MG/ML 100 ML INFUS..BTL IV (03:03)
[2022-08-19] MEDS: Diatrizoate Meglumine, Sodium 30 ML SOLUTION PO (03:05)
[2022-08-19 04:28] VITALS: BP 124/65; PULSE 91; RESP 18; TEMP 36.8; O2SAT 96
[2022-08-19 04:50] LABS: Alanine Aminotransferase 21 U/L (0-31); Alkaline Phosphatase 74 U/L (39-117); Aspartate Amino Transferase 17 U/L (5-31); Bilirubin Direct 0.2 mg/dL (0.0-0.5); Bilirubin Total 0.5 mg/dL (0.0-1.0); Total Protein 6.7 g/dL (6.5-8.0)
[2022-08-19 04:58] LABS: INTERNATIONAL NORM RATIO 1.4 (0.9-1.1); Prothrombin Time 15.9 SEC (10.0-13.1)
[2022-08-19 05:00] LABS: Partial Thromboplastin Time 29.5 SEC (26.0-36.4)
[2022-08-19 05:01] VITALS: BMI 43.8
[2022-08-19] MEDS: Heparin Sodium,Porcine/1/2NS 25,000 UNIT/250 ML IV.SOLN 17.25 UNIT IVCONT (05:17)
[2022-08-19] MEDS: Heparin Sodium,Porcine 5,000 UNIT/ML VIAL 9900 UNIT IVPUSH (05:17)
[2022-08-19] MEDS: fentaNYL citrate/PF 100 MCG/2 ML VIAL 25 MCG IVPUSH (05:26)
--- NOTE | 2022-08-19 05:32 | PC.NURSE ---
heparin drip started. initial bolus documented under prn. correct dose given. verified with 2 RNs
[2022-08-19 07:49] VITALS: BP 114/59; PULSE 86; RESP 24; TEMP 36.7; O2SAT 96
--- NOTE | 2022-08-19 08:56 | PHA.MEDREC ---
Pharmacy Consult ? Medication Reconciliation Pharmacy has completed the medication reconciliation. Spoke with patient in the ED
[2022-08-19 09:54] LABS: Hematocrit 37.1 % (37.0-47.0); Hemoglobin 12.1 g/dl (12.0-16.0); Mean Corpuscular HGB Conc 32.6 g/dl (31.0-35.0); Mean Corpuscular Hemoglobin 31.2 pg (27.0-33.0); Mean Corpuscular Volume 95.6 fL (80.0-98.0); Mean Platelet Volume 9.9 fL (9.4-12.3); Platelet Count 295 X10*3/uL (160-400); Red Blood Count 3.88 X10*6/uL (4.20-5.50); White Blood Count 10.3 X10*3/uL (4.8-10.8)
[2022-08-19 10:01] LABS: INTERNATIONAL NORM RATIO 1.4 (0.9-1.1); Prothrombin Time 16.1 SEC (10.0-13.1)
[2022-08-19 10:16] LABS: PTT Heparin Drip 185.8 SEC (53-77.9)
--- NOTE | 2022-08-19 10:29 | PC.NURSE ---
PTT 185.8, PT asymptomatic. Heparin stopped, ED provider notified. Stat PTT reordered.
--- NOTE | 2022-08-19 11:01 | PM.HPGS ---
History of Present Illness History of Present Illness Date of Service: 08/19/22 Chief complaint: portal vein thrombosis Narrative: Susu Templeton is a 51 year old female s/p LSG on 08/09/[address] Gonzales, today is POD 10. She was seen in the office for 1st post op visit 08/14/22 and had no significant abnormal complaints or physical exam findings. She stated on 08/15/22 she awoke with fatigue and mid abdominal pain rated at a 5/10. That evening she noted a low grade temp of 99.3. She thought it was constipation and took 15 mL MOM. she felt the gas pain was slightly improved w ambulation but fatigue persisted. Saturday morni she had a BM and felt some improvement and went for a walk w her . Upon return she had chills and temp around 100. She called the service (first time communicating with our office since onset) Saturday08/18/22 at 0354 hrs. Discussed w pt. She stated she had been vigilent w pace of drinking of 2 mL/min and she was just concerned. Advised to take Tylenol and check home covid test and I would call her back. Throughoy the day she rested but awoke early evening still unwell and was sent to the ER. W/U in ER revealed Covid neg, mild leukocytosis and felt to possibly be related to viral illness, however CT abdoment w oral and IV contrast positive for left portal vein thrombosis in the main and distal branches and right anterior devision. She will be admiited for further care. Of note, she had complaints of left posterior flank and pleuritic pain per-operatively and was seen in the ER 08/04/22. W/U neg for PE or infection, she was given cyclobenzaprine and d/c home. Pain subsided and she underwent uneventful LSG as planned. Pre-op Covid test was negative. PMHx sig for morbid obesity, above mentioned LSG, depression, DDD. Specifically no history of bleeding or clotting diagnosis FHx sig for fater w DVT. Unknown if fatal FL at 72 was due to PE. No autopsy. Unknown if DVT was provoced or not. 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 Review of Systems Review of Systems: Yes all other systems are reviewed and are negative Constitutional: Constitutional: Reports fatigue Gastrointestinal: Gastrointestinal: Reports as per HPI Psychiatric: Psychiatric: Reports anxiety Endocrine: Endocrine: Reports fatigue PMFSH Past Medical History Medical History Anxiety Binge eating disorder Depression DJD (degenerative joint disease) GERD (gastroesophageal reflux disease) History of deviated nasal septum Hyperlipidemia Hypertension Morbid obesity Nephrolithiasis NIK (obstructive sleep apnea) Prediabetes PTSD (post-traumatic stress disorder) Stress incontinence Tachycardia Family History Family History Mother Hypertension Depression Ovarian cancer in remission Father Deep vein thrombosis Hypertension Spine pain Seizure Brother Migraines Son Obesity Son No problems noted. Surgical History Surgical History Hx of arthroscopic knee surgery Hx of prior ablation treatment Hx of spinal surgery Social History Social History Are you a primary day care provider to a significant other at home: No Do you presently have visiting nurse or other home services: No Alcohol intake: never Patient Tobacco Use Status: Former Tobacco user Quit Date: 10 yrs ago Tobacco use type: Cigarette Advance Directives: No Advance Directives Information Provided: Yes service: No Meds Allergies Allergy/AdvReac Type Severity Reaction Status Date / Time sertraline [SERTRALINE] Allergy Unknown SLOWED Verified 08/14/22 10:35 BREATHING Active Medications: Current Medications Heparin Sodium (Porcine) (Heparin Sodium,Porcine 5,000 Unit/Ml Vial) 4,900 unit IVPUSH PROTOCOL BOLUS PRN; Protocol PRN Reason: 40 unit/kg - Heparin Protocol Heparin Sodium (Porcine) (Heparin Sodium,Porcine 5,000 Unit/Ml Vial) 9,900 unit IVPUSH PROTOCOL BOLUS PRN; Protocol PRN Reason: 80 unit/kg - Heparin Protocol Last Admin: 08/19/22 05:17 Dose: 9,900 unit Heparin Sodium/Sodium Chloride (Heparin Sodium,Porcine/1/2ns) 25,000 unit in 250 mls @ 0 mls/hr IVCONT .Q0M MICHEAL; Protocol Last Titration: 08/19/22 10:29 Dose: 0 units/kg/hr, 0 mls/hr Home Medications Medication Instructions Recorded Confirmed Last Taken Type oxycodone-acetaminophen 5 mg-325 1 tab PO Q6H PRN Pain 01/19/22 08/19/22 08/08/22 History mg tablet (Percocet) diazepam 5 mg tablet 2.5 mg PO DAILY PRN anxiety 05/29/22 08/19/22 08/08/22 History acetaminophen 650 mg/20.3 mL oral 650 mg PO Q6H PRN Pain (Scale 08/19/22 08/19/22 Unknown History solution Score 4-6) pantoprazole 40 mg tablet,delayed 40 mg PO DAILY@0630 08/19/22 08/19/22 Unknown History release Physical Exam Vital Signs: Vital Signs: Last Vital Signs Temp 98.1 F 08/19/22 07:49 Pulse 86 08/19/22 07:49 Resp 24 H 08/19/22 07:49 BP 114/59 L 08/19/22 07:49 Pulse Ox 96 08/19/22 07:49 O2 Del Method 08/19/22 07:49 BMI result Body Mass Index 43.8 Const: General: cooperative, healthy appearing and no acute distress Orientation/consciousness: patient oriented x3 HEENT: Head: Yes normal to inspection Ears: hearing grossly normal bilaterally General nose exam: Normal external nose present Face and sinus: Yes normal facial exam Eyes: General: appearance normal, both eyes and all related structures Resp: Effort & Inspection: normal respiratory effort Auscultation: clear to auscultation bilaterally Cardio: Rate: regular rate Rhythm: regular rhythm Heart sounds: S1 normal heart sound present and S2 normal heart sound present GI: Inspection: Yes normal to inspection, No distended and Yes obesity Palpation (GI): Soft to palpation, nontender and no guarding Auscultation: normal bowel sounds Skin: General skin exam: no rashes or lesions noted Neuro: General: patient oriented x3 Extrem: General: No edema Psych: Appearance: grossly normal Mental Status: mental status grossly normal Speech and movement: Normal speech and movement present Affect: normal affect Attitude: cooperative Results Results Labs: Short CBC 08/18/22 08/19/22 Range/Units 23:32 09:36 WBC 10.9 H 10.3 (4.8-10.8) X10*3/uL Hgb 12.8 12.1 (12.0-16.0) g/dl Hct 38.5 37.1 (37.0-47.0) % Plt Count 286 295 (160-400) X10*3/uL BMP 08/18/22 23:32 Sodium 139 Potassium 4.4 Chloride 102 Carbon Dioxide 24 BUN 10 Creatinine 0.72 Calcium 9.1 Liver Function 08/18/22 Range/Units 23:32 Total Bilirubin 0.5 (0.0-1.0) mg/dL Direct Bilirubin 0.2 (0.0-0.5) mg/dL AST 17 (5-31) U/L ALT 21 (0-31) U/L Alkaline Phosphatase 74 (39-117) U/L Albumin 4.0 (3.5-5.0) g/dL Urine 08/19/22 Range/Units 01:02 Urine Color Yellow Urine Appearance Clear Urine pH 7.0 (5.0-9.0) Ur Specific [place] 1.010 (1.005-1.025) Urine Protein Negative (Neg-Trace) mg/dL Urine Glucose (UA) Negative (Negative) mg/dL Abdomen CT scan report/results: report reviewed (IMPRESSION: * 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 The posterior division of the right portal vein and main portal vein are patent. * Interval sleeve gastrectomy. * Pancolonic diverticulosis without evide) and image reviewed Assessment and Plan (1) Portal vein thrombosis: Status: Acute Discussed and reviewed imaging with radiology directly. No evidence on CT of 08/04/22. Continue heparin gtt, monitor ptt per protocol. consider repeat imaging in 2-3 days w US vs repeat CT. Likely related to surgery but possibility of underlying hypercoaguablility given pos FHx in father of DVT May need further w/u, TBD Follow labs monitoring gfor any bleeding or propagation of clot Continue NPO for now, give IVF check LA now and tomorrow morning. (2) S/P laparoscopic sleeve gastrectomy: Status: Acute POD 10, previously tolerating two 4:1 shakes 2 scoops each and one Pure Protein 1 scoop. Hold for the moment and likely resume in 1-2 days pending clinical course Continue Sulcrafte Add Protonix iV to minimize PO meds (home dose pantoprazole) (3) NIK (obstructive sleep apnea): Status: Acute continue nightly CPAP (4) Anxiety: Status: Acute Contineu prn Valium (5) GERD (gastroesophageal reflux disease): Status: Acute PPI/Sulcrafate No evidence of hiatal/diaphragmatic hernia intra-operatively Plan Discussed case in depth with Dr Gonzales Quality Stroke Does the patient have a stroke diagnosis?: No VTE Prior VTE?: No VTE Risk Level:: Surgical - high VTE Device Contraindication: Treatment Not Indicated VTE Drug Contraindication: N/A - Med Ordered Procedures Date of Service Date of Service: 08/19/22
[2022-08-19 11:18] LABS: PTT Heparin Drip 143.2 SEC (53-77.9)
[2022-08-19 12:10] VITALS: BP 122/65; PULSE 87; RESP 20; TEMP 36.8; O2SAT 95
[2022-08-19] MEDS: Pantoprazole Sodium 40 MG/10 ML VIAL IVPUSH (12:19)
[2022-08-19] MEDS: Dextrose 5 % and 0.9 % NaCl 1,000 ML 150 ML IVCONT ×2 (12:19→19:46)
[2022-08-19 12:32] LABS: Lactic Acid 0.5 mmol/L (0.5-2.0)
[2022-08-19] MEDS: diazePAM 5 MG TABLET 2.5 MG PO (12:33)
[2022-08-19] MEDS: Morphine Sulfate 2 MG/ML CARTRIDGE 1 MG IVPUSH ×2 (12:34→18:57)
[2022-08-19] MEDS: Heparin Sodium,Porcine 5,000 UNIT/ML VIAL 4900 UNIT IVPUSH (13:15)
[2022-08-19 13:19] LABS: PTT Heparin Drip 36.8 SEC (53-77.9)
--- NOTE | 2022-08-19 13:45 | PC.NURSE ---
Addendum entered by Khadijah Montes 08/19/22 16:42: Bolus of 4,900 units given at 1315. Original Note: PTT results 36.8. Heparin restarted at 18 u/kg/hr per protocol.
[2022-08-19 15:01] LABS: Partial Thromboplastin Time 32.1 SEC (26.0-36.4)
[2022-08-19 16:16] LABS: PTT Heparin Drip 69.3 SEC (53-77.9)
--- NOTE | 2022-08-19 16:37 | PC.NURSE ---
Stat PTT ordered by Dr. O[place]iedo results 69.3. WNL. PT asymtomatic.
--- NOTE | 2022-08-19 19:38 | PC.NURSE ---
Acetaminophen unavailable in Pyxis. Calling pharmacy at this time
--- NOTE | 2022-08-19 19:39 | PC.NURSE ---
[facility] in Pharmacy states that Accetaminophen is being sent down as soon as they can
[2022-08-19 20:09] LABS: PTT Heparin Drip 69.1 SEC (53-77.9)
--- NOTE | 2022-08-19 20:22 | PC.NURSE ---
PTT-HD results from 19:41 - 69.1. Will maintain Heparin gtt at current rate
--- NOTE | 2022-08-19 20:25 | PC.NURSE ---
Order in for DAILY PTT-HD per protocol because last two results have both been within therapeutic range (69.3 and 69.1)
[2022-08-19 20:30] VITALS: BP 143/79; PULSE 80; RESP 18; TEMP 36.7; O2SAT 95
[2022-08-19] MEDS: Sucralfate Oral Suspension 1 GM/10 ML ORAL.SUSP PO (20:33)
[2022-08-19] MEDS: Sennosides 8.6 MG TABLET 17.2 MG PO (20:33)
--- NOTE | 2022-08-19 20:43 | PC.NURSE ---
Still awaiting Acetaminophen from Pharmacy at this time
--- NOTE | 2022-08-19 20:46 | PC.NURSE ---
Yasmani Oviedo, Bariatric Surgery PA messaging this RN asking if pt.'s Heparin gtt can be increased from 18U/kg/hr to 18.5U/kg/hr. Told PA that this RN was unsure if that went against Heparin protocol and would double check with controlled atmospheric furnace brazer. controlled atmospheric furnace brazer Anh confirmed that we cannot have Heparin gtt running at 18.5U/kg/hr, as this does not follow hospital Heparin protocol
--- NOTE | 2022-08-19 20:49 | PM.HEMONCCN ---
Subjective - Subjective Chief complaint: Consult for: Portal Vein Thrombosis. Patient: new to practice Consult date: 08/19/22 Requesting Physician: Ivelisse. Primary Care Provider: Gin Amaro MD Medical Summary: DIAGNOSIS: Portal Vein Thrombosis. HPI - Consult Narrative Reason for consult: Consult for: Portal Vein Thrombosis. Narrative: Susu Templeton is a pleasant 51 year old lady, who had a laproscopic sleeve gastric surgery on 08/09/22. She presented with epigastric pain and fever of 4 days duration. HPI: She was seen in the office for 1st post op visit 08/14/22. She had no significant abnormal complaints or physical exam findings. On 08/15/22 she woke up with fatigue and mid abdominal pain rated at a 5/10. She noted a low grade temp of 99.3. She thought it was constipation and took 15 mL MOM. she felt the gas pain was slightly improved w ambulation but fatigue persisted. Saturday morning she had a BM and felt some improvement and went for a walk w her . Upon return she had chills and temp around 100. She called the service Saturday08/18/22. She stated she had been vigilent w pace of drinking of 2 mL/min. Advised to take Tylenol and check home covid test. Throughout the day she rested but awoke early evening still unwell and was sent to the ER. W/U in ER revealed Covid neg, mild leukocytosis, ? related to viral illness. However, Cat scan of abdomen: * 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 The posterior division of the right portal vein and main portal vein are patent. * Interval sleeve gastrectomy. * Pancolonic diverticulosis without evidence of diverticulitis. * Tiny omental fat-containing hernia at the site of the epigastric midline lap port entry. Left Portal Vein Thrombosis. She had previously had pain in left flank and lower lungs on 08/04: She was worked up for pulmonary embolism, was negative. She was treated with Cyclobenzaprine, with which pain was relieved. PMH: GERD. HTN. HYPERLIPIDEMIA. PREDIABETES. NIK. DNS. DEPRESSION. EATING DISORDER. ANXIETY. TACHYCARDIA. Review of Systems - Constitutional Reports system reviewed and no additional complaints, except as documented - Eyes Reports system reviewed and no additional complaints, except as documented - ENT Reports system reviewed and no additional complaints, except as documented - Cardiovascular Reports system reviewed and no additional complaints, except as documented - Respiratory Reports no additional respiratory complaints - Gastrointestinal Reports system reviewed and no additional complaints, except as documented - Genitourinary Reports no additional female genitourinary complaints - Musculoskeletal Reports system reviewed and no additional complaints, except as documented - Integumentary/Breasts Skin/Breast: Reports no additional skin complaints - Neurologic Reports system reviewed and no additional complaints, except as documented - Psychiatric Reports system reviewed and no additional complaints, except as documented - Endocrine Reports no additional endocrine complaints - Hematologic/Lymphatic Reports system reviewed and no additional complaints, except as documented - Allergic/Immunologic Reports system reviewed and no additional complaints, except as documented Oncology Screenings - ECOG Performance Status ECOG Performance Status: 0 [facility] Medical History: Medical History (Last Reviewed 08/28/22 @ 11:18 by MAXIM Jaime) Acute viral syndrome Anxiety Binge eating disorder Depression DJD (degenerative joint disease) GERD (gastroesophageal reflux disease) History of deviated nasal septum Hyperlipidemia Hypertension Morbid obesity Nephrolithiasis NIK (obstructive sleep apnea) Prediabetes PTSD (post-traumatic stress disorder) Stress incontinence Tachycardia Functional capacity: independent ambulation Patient : No Family History: Family History (Last Reviewed 08/28/22 @ 11:18 by MAXIM Jaime) Mother Hypertension Depression Ovarian cancer in remission Father Deep vein thrombosis Hypertension Spine pain Seizure Brother Migraines Son Obesity Son No problems noted. Surgical History: Surgical History (Last Reviewed 08/28/22 @ 11:18 by MAXIM Jaime) Hx of arthroscopic knee surgery Hx of prior ablation treatment Hx of spinal surgery Social History: Social History (Last Reviewed 08/28/22 @ 11:18 by MAXIM Jaime) Living Situation History: Are you a primary intensive care unit registered nurse to a significant other at home: No Do you presently have visiting nurse or other home services: No Tobacco History: Patient Tobacco Use Status: Former Tobacco user Tobacco use type: Cigarette Smoke Quit Date: 10 yrs ago Occupation Assessmet: service: No Current occupational status: unemployed Home Medications and Allergies Current Medications: Current Medications Diazepam (Diazepam 5 Mg Tablet) 2.5 mg PO DAILY PRN PRN Reason: anxiety Last Admin: 08/19/22 12:33 Dose: 2.5 mg Heparin Sodium (Porcine) (Heparin Sodium,Porcine 5,000 Unit/Ml Vial) 4,900 unit IVPUSH PROTOCOL BOLUS PRN; Protocol PRN Reason: 40 unit/kg - Heparin Protocol Last Admin: 08/19/22 13:15 Dose: 4,900 unit Heparin Sodium (Porcine) (Heparin Sodium,Porcine 5,000 Unit/Ml Vial) 9,900 unit IVPUSH PROTOCOL BOLUS PRN; Protocol PRN Reason: 80 unit/kg - Heparin Protocol Last Admin: 08/19/22 05:17 Dose: 9,900 unit Heparin Sodium/Sodium Chloride (Heparin Sodium,Porcine/1/2ns) 25,000 unit in 250 mls @ 0 mls/hr IVCONT .Q0M [facility]; Protocol Last Titration: 08/19/22 13:30 Dose: 18 units/kg/hr, 22.17 mls/hr Dextrose/Sodium Chloride (D5ns) 1,000 mls @ 150 mls/hr IVCONT .Q6H40M [facility] Last Admin: 08/19/22 19:46 Dose: 150 mls/hr Acetaminophen (Ofirmev) 1,000 mg in 100 mls @ 16.7 mls/hr IV .Q6H [facility] Last Admin: 08/19/22 16:00 Dose: 16.7 mls/hr Morphine Sulfate (Morphine Sulfate 2 Mg/Ml Cartridge) 1 mg IVPUSH Q6H PRN; Protocol PRN Reason: Pain, Moderate (Pain Scale 4-6 Last Admin: 08/19/22 18:57 Dose: 1 mg Pantoprazole Sodium (Pantoprazole Sodium 40 Mg/10 Ml Vial) 40 mg IVPUSH DAILY [facility] Last Admin: 08/19/22 12:19 Dose: 40 mg Senna (Sennosides 8.6 Mg Tablet) 17.2 mg PO BEDTIME [facility] Last Admin: 08/19/22 20:33 Dose: 17.2 mg Sodium Chloride (0.9 % Sodium Chloride Flush 3 Ml Syringe) 3 ml IVFLUSH QSHIFT [facility] Last Admin: 08/19/22 16:55 Dose: Not Given Sucralfate (Sucralfate Oral Suspension 1 Gm/10 Ml Oral.Susp) 1 gm PO BID [facility] Last Admin: 08/19/22 20:33 Dose: 1 gm Home Medications Medication Instructions Recorded Confirmed Type oxycodone-acetaminophen 5 mg-325 1 tab PO Q6H PRN Pain 01/19/22 08/28/22 History mg tablet (Percocet) diazepam 5 mg tablet 2.5 mg PO DAILY PRN anxiety 05/29/22 08/28/22 History pantoprazole 40 mg tablet,delayed 40 mg PO DAILY@0630 08/19/22 08/28/22 History release Allergies Allergy/AdvReac Type Severity Reaction Status Date / Time sertraline [SERTRALINE] Allergy Unknown SLOWED Verified 08/28/22 10:40 BREATHING Physical Exam Vital signs: Vital Signs Temp 98.0 F 08/19/22 20:30 Pulse 80 08/19/22 20:30 Resp 18 08/19/22 20:30 BP 143/79 H 08/19/22 20:30 Pulse Ox 95 08/19/22 20:30 O2 Del Method 08/19/22 20:30 Intake & Output 08/19/22 08/19/22 08/20/22 06:59 18:59 06:59 Intake Total 1999 784.7 / 784.7 0 / 784.7 Balance 1999 784.7 / 784.7 0 / 784.7 Intake: Intake, IV Amount 1999 784.7 / 784.7 0 / 784.7 0.9 % Sodium Chloride 2,000 ml 1999 @ 999 mls/hr IVCONT .Q2H1M [facility] Rx#:[id number] Dextrose 5 % and 0.9 % NaCl 1, 695 / 695 0 / 695 000 ml @ 150 mls/hr IVCONT . Q6H40M [facility] Rx#:[id number] Heparin Sodium,Porcine/1/2NS 25 89.7 / 89.7 ,000 unit In 250 ml @ Per Protocol IVCONT .Q0M [facility] Rx#: [id number] Other: Urine Bathroom Stool Bathroom Weight 123.2 kg [place] Weight in Grams [id number] Weight 123.2 kg Hem/Onc Consult Result - Labs CBC & Chem 7: 08/21/22 06:34 08/21/22 06:34 Labs: Short CBC 08/18/22 08/19/22 Range/Units 23:32 09:36 WBC 10.9 H 10.3 (4.8-10.8) X10*3/uL Hgb 12.8 12.1 (12.0-16.0) g/dl Hct 38.5 37.1 (37.0-47.0) % Plt Count 286 295 (160-400) X10*3/uL BMP 08/18/22 23:32 Sodium 139 Potassium 4.4 Chloride 102 Carbon Dioxide 24 BUN 10 Creatinine 0.72 Calcium 9.1 Liver Function 08/18/22 Range/Units 23:32 Total Bilirubin 0.5 (0.0-1.0) mg/dL Direct Bilirubin 0.2 (0.0-0.5) mg/dL AST 17 (5-31) U/L ALT 21 (0-31) U/L Alkaline Phosphatase 74 (39-117) U/L Albumin 4.0 (3.5-5.0) g/dL Urine 08/19/22 Range/Units 01:02 Urine Color Yellow Urine Appearance Clear Urine pH 7.0 (5.0-9.0) Ur Specific [place] 1.010 (1.005-1.025) Urine Protein Negative (Neg-Trace) mg/dL Urine Glucose (UA) Negative (Negative) mg/dL Assessment and Plan Patient Active problem list reviewed?: Yes (1) Portal vein thrombosis Status: Acute Assessment and plan: This is a pleasant 51 year old lady S/P Bariatric Surgery, on 08/09. She presented with fever and epigastric pain. Noted to have Portal Vein Thrombosis. Most likely related to recent abdominal surgery. Differential Diagnosis: Underlying Hypercoagulable State. PLAN: Will proceed with Hyper-coaguable work up. She has been started on IV Heparin. Will continue for now. Will evantually be switched to an oral anti-coagulant: one of the NOACS. Thanks, CC: - Time Spent With Patient Time Spent with Patient (in minutes): 30
--- NOTE | 2022-08-19 20:59 | PM.PNGS ---
Subjective Subjective Date of Service: 08/20/22 Interval history: Patient feels better. Very little abdominal pain Had an uneventful sleeve gastrectomy on 08/09/22. Discharged home the next day. Was recovering as expected based on my daily communication with the patient. Was seen at the office for 1 week follow-up without any issues. Patient communicated with me on Saturday afternoon that she experienced a sharp mid-epigastric pain associated with a low grade fever of 100.6. I advised the patient to take Tylenol every 4 hours. On further communication on Saturday she felt better but she continued to have a low grade fever. At that point I advised her to go [place] [facility] I ordered a CT with special emphasis on PV/SMV/SV thromnosis. This revealed thrombosis of left branch of portal vein as well as partial thrombosis of the right branch. Main stem as well as SMV and SV are patent and small bowel is unremarkable. Lactate level was normal. Patient was placed immediately on heparin drip. Physical Exam Vital Signs: Vital Signs: Last Vital Signs Temp 98.0 F 08/19/22 20:30 Pulse 80 08/19/22 20:30 Resp 18 08/19/22 20:30 BP 143/79 H 08/19/22 20:30 Pulse Ox 95 08/19/22 20:30 O2 Del Method 08/19/22 20:30 BMI result Body Mass Index 43.8 GI: Inspection: Yes normal to inspection, Yes incision (well healed) and Yes obesity Palpation (GI): Soft to palpation and Other GI palpation findings present (no tenderness) Extrem: Right lower extremity: normal to inspection (no calf tenderness) Left lower extremity: normal to inspection (no calf tenderness) Objective Data Active Medications Diazepam (Diazepam 5 Mg Tablet) 2.5 mg PO DAILY PRN PRN Reason: anxiety Last Admin: 08/19/22 12:33 Dose: 2.5 mg Documented By: DRAKE Heparin Sodium (Porcine) (Heparin Sodium,Porcine 5,000 Unit/Ml Vial) 4,900 unit IVPUSH PROTOCOL BOLUS PRN; Protocol PRN Reason: 40 unit/kg - Heparin Protocol Last Admin: 08/19/22 13:15 Dose: 4,900 unit Documented By: DRAKE Heparin Sodium (Porcine) (Heparin Sodium,Porcine 5,000 Unit/Ml Vial) 9,900 unit IVPUSH PROTOCOL BOLUS PRN; Protocol PRN Reason: 80 unit/kg - Heparin Protocol Last Admin: 08/19/22 05:17 Dose: 9,900 unit Documented By: AGGIE Heparin Sodium/Sodium Chloride (Heparin Sodium,Porcine/1/2ns) 25,000 unit in 250 mls @ 0 mls/hr IVCONT .Q0M [facility]; Protocol Last Titration: 08/19/22 13:30 Dose: 18 units/kg/hr, 22.17 mls/hr Documented By: DRAKE Co-signed By: FREDDY Dextrose/Sodium Chloride (D5ns) 1,000 mls @ 150 mls/hr IVCONT .Q6H40M [facility] Last Admin: 08/19/22 19:46 Dose: 150 mls/hr Documented By: PARMINDER Acetaminophen (Ofirmev) 1,000 mg in 100 mls @ 16.7 mls/hr IV .Q6H [facility] Last Admin: 08/19/22 20:54 Dose: 16.7 mls/hr Documented By: PARMINDER Morphine Sulfate (Morphine Sulfate 2 Mg/Ml Cartridge) 1 mg IVPUSH Q6H PRN; Protocol PRN Reason: Pain, Moderate (Pain Scale 4-6 Last Admin: 08/19/22 18:57 Dose: 1 mg Documented By: DRAKE Pantoprazole Sodium (Pantoprazole Sodium 40 Mg/10 Ml Vial) 40 mg IVPUSH DAILY [facility] Last Admin: 08/19/22 12:19 Dose: 40 mg Documented By: DRAKE Senna (Sennosides 8.6 Mg Tablet) 17.2 mg PO BEDTIME [facility] Last Admin: 08/19/22 20:33 Dose: 17.2 mg Documented By: PARMINDER Sodium Chloride (0.9 % Sodium Chloride Flush 3 Ml Syringe) 3 ml IVFLUSH QSHIFT [facility] Last Admin: 08/19/22 16:55 Dose: Not Given Documented By: DRAKE Non-Admin Reason: IV Running Sucralfate (Sucralfate Oral Suspension 1 Gm/10 Ml Oral.Susp) 1 gm PO BID [facility] Last Admin: 08/19/22 20:33 Dose: 1 gm Documented By: PARMINDER Labs CBC & Chem 7: 08/20/22 05:53 08/20/22 05:53 Labs: Laboratory Results - last 24 hr 08/18/22 08/18/22 08/19/22 23:32 23:32 01:02 MCV 95.8 MCH 31.8 MCHC 33.2 RDW 12.0 Plt Count 286 MPV 9.8 Immature Gran % (Auto) 0.4 Neut % (Auto) 70.6 Lymph % (Auto) 15.9 L [place] % (Auto) 12.1 H Eos % (Auto) 0.7 Baso % (Auto) 0.3 Lymph # (Auto) 1.7 [place] # (Auto) 1.3 H Eos # (Auto) 0.1 Baso # (Auto) 0.0 Abs Immat Gran (auto) 0.04 H Absolute Neuts (auto) 7.7 Absolute Nucleated RBC 0.000 Nucleated RBC % (auto) 0.0 PT INR APTT aPTT Heparin Protocol Anion Gap 17 Estim Creat Clear Calc 122.6 Estimated GFR > 60 Random Glucose 106 Lactic Acid Calcium 9.1 Total Bilirubin 0.5 Direct Bilirubin 0.2 AST 17 ALT 21 Alkaline Phosphatase 74 Total Protein 6.7 Albumin 4.0 Urine Color Yellow Urine Appearance Clear Urine pH 7.0 Ur Specific [place] 1.010 Urine Protein Negative Urine Glucose (UA) Negative Urine Ketones 15 Urine Blood Negative Urine Nitrite Negative Ur Leukocyte Esterase Negative 08/19/22 08/19/22 08/19/22 04:35 04:35 09:36 MCV 95.6 MCH 31.2 MCHC 32.6 RDW 12.0 Plt Count 295 MPV 9.9 Immature Gran % (Auto) Neut % (Auto) Lymph % (Auto) [place] % (Auto) Eos % (Auto) Baso % (Auto) Lymph # (Auto) [place] # (Auto) Eos # (Auto) Baso # (Auto) Abs Immat Gran (auto) Absolute Neuts (auto) Absolute Nucleated RBC 0.000 Nucleated RBC % (auto) 0.0 PT 15.9 H INR 1.4 H APTT 29.5 aPTT Heparin Protocol Anion Gap Estim Creat Clear Calc Estimated GFR Random Glucose Lactic Acid Calcium Total Bilirubin Direct Bilirubin AST ALT Alkaline Phosphatase Total Protein Albumin Urine Color Urine Appearance Urine pH Ur Specific [place] Urine Protein Urine Glucose (UA) Urine Ketones Urine Blood Urine Nitrite Ur Leukocyte Esterase 08/19/22 08/19/22 08/19/22 09:36 09:36 10:41 MCV MCH MCHC RDW Plt Count MPV Immature Gran % (Auto) Neut % (Auto) Lymph % (Auto) [place] % (Auto) Eos % (Auto) Baso % (Auto) Lymph # (Auto) [place] # (Auto) Eos # (Auto) Baso # (Auto) Abs Immat Gran (auto) Absolute Neuts (auto) Absolute Nucleated RBC Nucleated RBC % (auto) PT 16.1 H INR 1.4 H APTT aPTT Heparin Protocol 185.8 H* Cancelled 143.2 H* D Anion Gap Estim Creat Clear Calc Estimated GFR Random Glucose Lactic Acid Calcium Total Bilirubin Direct Bilirubin AST ALT Alkaline Phosphatase Total Protein Albumin Urine Color Urine Appearance Urine pH Ur Specific [place] Urine Protein Urine Glucose (UA) Urine Ketones Urine Blood Urine Nitrite Ur Leukocyte Esterase 08/19/22 08/19/22 08/19/22 11:59 13:01 14:43 MCV MCH MCHC RDW Plt Count MPV Immature Gran % (Auto) Neut % (Auto) Lymph % (Auto) [place] % (Auto) Eos % (Auto) Baso % (Auto) Lymph # (Auto) [place] # (Auto) Eos # (Auto) Baso # (Auto) Abs Immat Gran (auto) Absolute Neuts (auto) Absolute Nucleated RBC Nucleated RBC % (auto) PT INR APTT 32.1 aPTT Heparin Protocol 36.8 L D Anion Gap Estim Creat Clear Calc Estimated GFR Random Glucose Lactic Acid 0.5 Calcium Total Bilirubin Direct Bilirubin AST ALT Alkaline Phosphatase Total Protein Albumin Urine Color Urine Appearance Urine pH Ur Specific [place] Urine Protein Urine Glucose (UA) Urine Ketones Urine Blood Urine Nitrite Ur Leukocyte Esterase 08/19/22 08/19/22 16:00 19:41 MCV MCH MCHC RDW Plt Count MPV Immature Gran % (Auto) Neut % (Auto) Lymph % (Auto) [place] % (Auto) Eos % (Auto) Baso % (Auto) Lymph # (Auto) [place] # (Auto) Eos # (Auto) Baso # (Auto) Abs Immat Gran (auto) Absolute Neuts (auto) Absolute Nucleated RBC Nucleated RBC % (auto) PT INR APTT aPTT Heparin Protocol 69.3 D 69.1 Anion Gap Estim Creat Clear Calc Estimated GFR Random Glucose Lactic Acid Calcium Total Bilirubin Direct Bilirubin AST ALT Alkaline Phosphatase Total Protein Albumin Urine Color Urine Appearance Urine pH Ur Specific [place] Urine Protein Urine Glucose (UA) Urine Ketones Urine Blood Urine Nitrite Ur Leukocyte Esterase Procedures Date of Service Date of Service: 08/20/22 Progress Note: A&P Assessment and plan (1) Portal vein thrombosis: Status: Acute Assessment and Plan: 1. Continue heparin drip 2. Resume diet tomorrow if lactate is normal 3. Hematology consult for hypercoagulable profile 4. Repeat CT in a few days (2) S/P laparoscopic sleeve gastrectomy: Status: Acute Time Spent With Patient Time: Total time spent is greater than 50% in coordination of care (as documented) at patient's floor/unit and/or counseling patient: Quality Stroke Does the patient have a stroke diagnosis?: No VTE Prior VTE?: No VTE Risk Level:: Surgical - high VTE Device Contraindication: Treatment Not Indicated VTE Drug Contraindication: N/A - Med Ordered
--- NOTE | 2022-08-19 21:04 | PC.NURSE ---
This RN increased the pt.'s Heparin gtt from 18U/kg/hr to 19U/kg/hr per MAXIM Diaz per Dr. Christian MD. This RN asked PA for explanation for rate increase for documentation purposes. MAXIM stated that did not explain the rationale to him, he was just requesting the increase to 19U/kg/hr. Next PTT-HD is also ordered for 08/20/22 at 0500
--- NOTE | 2022-08-19 22:26 | PC.NURSE ---
Calling report to Overflow Dept. on this pt. per Shana Kamara RN
--- NOTE | 2022-08-19 22:37 | PC.NURSE ---
Report called to LUKE Myles in Overflow Dept.
[2022-08-19 23:52] VITALS: BP 124/81; PULSE 76; RESP 20; TEMP 36.8; O2SAT 95
[2022-08-20] MEDS: Morphine Sulfate 2 MG/ML CARTRIDGE 1 MG IVPUSH ×3 (01:03→13:55)
[2022-08-20] MEDS: Heparin Sodium,Porcine/1/2NS 25,000 UNIT/250 ML IV.SOLN 23.41 UNIT IVCONT (01:32)
[2022-08-20] MEDS: Dextrose 5 % and 0.9 % NaCl 1,000 ML 150 ML IVCONT ×4 (04:03→22:32)
[2022-08-20 05:00] VITALS: BP 118/61; PULSE 84; RESP 18; TEMP 36.8; O2SAT 94
[2022-08-20 06:03] LABS: MANUAL DIFF FLAG NO
[2022-08-20 06:05] LABS: Basophils Percent Auto 0.5 % (0-2); Eosinophils Absolute Auto 0.1 X10*3/uL (0.0-0.4); Eosinophils Percent Auto 0.9 % (0-4); Hematocrit 33.6 % (37.0-47.0); Hemoglobin 10.9 g/dl (12.0-16.0); Imm Gran Abs Auto 0.06 X10*3/uL (0.00-0.03); Imm Gran Pct Auto 0.7 % (0.0-0.4); Lymphocytes Absolute Auto 1.7 X10*3/uL (1.2-4.9); Lymphocytes Percent Auto 19.8 % (20-40); Mean Corpuscular HGB Conc 32.4 g/dl (31.0-35.0); Mean Corpuscular Hemoglobin 31.1 pg (27.0-33.0); Mean Platelet Volume 9.6 fL (9.4-12.3); Monocytes Percent Auto 11.1 % (2-11); Neutrophils Absolute Auto 5.9 x10*3/uL (2.0-8.3); Platelet Count 298 X10*3/uL (160-400); White Blood Count 8.8 X10*3/uL (4.8-10.8)
[2022-08-20 06:18] LABS: Lactic Acid 0.5 mmol/L (0.5-2.0)
[2022-08-20 06:32] LABS: PTT Heparin Drip 122.1 SEC (53-77.9)
[2022-08-20 06:38] LABS: Anion Gap 17 (12-20); Blood Urea Nitrogen 5 mg/dL (9-16); Calcium 8.4 mg/dL (8.4-10.2); Carbon Dioxide 21 mmol/L (22-29); Chloride 109 mmol/L (96-108); Creatinine Clr Calc Pharmacy 155.4; Estimated Glomerular Filt Rate > 60; Glucose Random 138 mg/dL (60-115); Potassium 3.6 mmol/L (3.3-5.1); Sodium 143 mmol/L (135-145)
[2022-08-20] MEDS: Acetaminophen 1,000 MG/100 ML PIGGYBACK 16.7 MG IV ×3 (07:56→20:00)
[2022-08-20] MEDS: Pantoprazole Sodium 40 MG/10 ML VIAL IVPUSH (07:59)
[2022-08-20 08:23] VITALS: BP 132/69; PULSE 68; RESP 20; TEMP 36.8; O2SAT 96
[2022-08-20] MEDS: Folic Acid 1 MG in 0.9 % Sodium Chloride 50 ML 100.4 MG IV (10:25)
[2022-08-20] MEDS: Multivitamin with Minerals Liq 15 ML LIQUID PO (10:29)
[2022-08-20] MEDS: Sucralfate Oral Suspension 1 GM/10 ML ORAL.SUSP PO ×2 (10:33→22:33)
[2022-08-20 13:03] LABS: PTT Heparin Drip 119.6 SEC (53-77.9)
--- NOTE | 2022-08-20 13:06 | MHC.CM.PN ---
PT REPORTS SHE LIVES WITH HER SONS AND IS INDEPENDENT WITH CARE SHE REPORTS SHE HAS A CANE, WALKER AND CPAP AT HOME SHE HAS NO HOME SERVICES SHE DENIES BEING COVID VACCINATED PCP: REX MOYA HCP COMPLETED TODAY, NAMING HER [facility], [place], HER PRIMARY AND HER TWO SONS ALTERNATES CURRENT DC PLAN IS HOME WITH NO SERVICES PT WILL ARRANGE TRANSPORT
[2022-08-20] MEDS: Heparin Sodium,Porcine/1/2NS 25,000 UNIT/250 ML IV.SOLN 20.94 UNIT IVCONT (13:34)
[2022-08-20] MEDS: Cyanocobalamin (Vitamin B-12) 1,000 MCG/ML VIAL 1000 MCG IM (13:55)
[2022-08-20] MEDS: diazePAM 5 MG TABLET 2.5 MG PO (14:02)
--- NOTE | 2022-08-20 16:22 | P.PNGS_ITS ---
Subjective Subjective Date of Service: 08/20/22 Interval history: HD # 2 for 51 yo woman who is 11 days s/p sleeve gastrectomy who was diagnosed with portal vein thrombosis and has been on heparin gtt x 2 d. She states her mid abd pain is improved but has headaches and back pain that morphine is not helping with. She is asking if she can take her oxycodone/acetaminophen that she normally takes at home. She is tolerating her protien shake from home but has not received the Ensure shakes yet. Physical Exam Vital Signs: Vital Signs: Last Vital Signs Temp 98.3 F 08/20/22 08:23 Pulse 68 08/20/22 08:23 Resp 20 08/20/22 08:23 BP 132/69 08/20/22 08:23 Pulse Ox 96 08/20/22 08:23 O2 Del Method 08/20/22 08:23 BMI result Body Mass Index 43.8 Const: General: cooperative, healthy appearing, comfortable, no acute distress, alert and awake Nutritional Appearance: obese Orientation/consc iousness: patient oriented x3 Limitations: no limitations GI: Inspection: Yes normal to inspection and Yes scar (c/d/i covered with steri strips, mild ecchymoses) Palpation (GI): Soft to palpation, nontender, no guarding, no hernias, no masses and No Rebound tenderness present Neuro: General: patient oriented x3 Extrem: General: Yes normal to inspection, Yes no pedal edema and Yes no calf tenderness Objective Data Active Medications Diazepam (Diazepam 5 Mg Tablet) 2.5 mg PO DAILY PRN PRN Reason: anxiety Last Admin: 08/20/22 14:02 Dose: 2.5 mg Documented By: OBED Heparin Sodium (Porcine) (Heparin Sodium,Porcine 5,000 Unit/Ml Vial) 4,900 unit IVPUSH PROTOCOL BOLUS PRN; Protocol PRN Reason: 40 unit/kg - Heparin Protocol Last Admin: 08/19/22 13:15 Dose: 4,900 unit Documented By: DRAKE Heparin Sodium (Porcine) (Heparin Sodium,Porcine 5,000 Unit/Ml Vial) 9,900 unit IVPUSH PROTOCOL BOLUS PRN; Protocol PRN Reason: 80 unit/kg - Heparin Protocol Last Admin: 08/19/22 05:17 Dose: 9,900 unit Documented By: HO.N-SHELB Heparin Sodium/Sodium Chloride (Heparin Sodium,Porcine/1/2ns) 25,000 unit in 250 mls @ 0 mls/hr IVCONT .Q0M [facility]; Protocol Last Admin: 08/20/22 13:34 Dose: 17 units/kg/hr, 20.94 mls/hr Documented By: OBED Co-signed By: CATRACHITA Dextrose/Sodium Chloride (D5ns) 1,000 mls @ 150 mls/hr IVCONT .Q6H40M [facility] Last Admin: 08/20/22 11:05 Dose: 150 mls/hr Documented By: OBED Acetaminophen (Ofirmev) 1,000 mg in 100 mls @ 16.7 mls/hr IV .Q6H [facility] Last Admin: 08/20/22 14:09 Dose: 16.7 mls/hr Documented By: OBED Folic Acid 1 mg/ Sodium (Chloride) 50.2 mls @ 100.4 mls/hr IV DAILY [facility] Stop: 08/22/22 09:29 Last Infusion: 08/20/22 10:55 Dose: 0 mls/hr Documented By: OBED Morphine Sulfate (Morphine Sulfate 2 Mg/Ml Cartridge) 1 mg IVPUSH Q6H PRN; Protocol PRN Reason: Pain, Moderate (Pain Scale 4-6 Last Admin: 08/20/22 13:55 Dose: 1 mg Documented By: OBED Pantoprazole Sodium (Pantoprazole Sodium 40 Mg/10 Ml Vial) 40 mg IVPUSH DAILY [facility] Last Admin: 08/20/22 07:59 Dose: 40 mg Documented By: OBED Senna (Sennosides 8.6 Mg Tablet) 17.2 mg PO BEDTIME [facility] Last Admin: 08/19/22 20:33 Dose: 17.2 mg Documented By: PARMINDER Sodium Chloride (0.9 % Sodium Chloride Flush 3 Ml Syringe) 3 ml IVFLUSH QSHIFT [facility] Last Admin: 08/20/22 11:24 Dose: Not Given Documented By: OBED Non-Admin Reason: IV Running Sucralfate (Sucralfate Oral Suspension 1 Gm/10 Ml Oral.Susp) 1 gm PO BID [facility] Last Admin: 08/20/22 10:33 Dose: 1 gm Documented By: OBED Labs CBC & Chem 7: 08/20/22 05:53 08/20/22 05:53 Labs: Laboratory Results - last 24 hr 08/19/22 08/20/22 08/20/22 19:41 05:53 05:53 MCV 96.0 MCH 31.1 MCHC 32.4 RDW 12.0 Plt Count 298 MPV 9.6 Immature Gran % (Auto) 0.7 H Neut % (Auto) 67.0 Lymph % (Auto) 19.8 L [place] % (Auto) 11.1 H Eos % (Auto) 0.9 Baso % (Auto) 0.5 Lymph # (Auto) 1.7 [place] # (Auto) 1.0 Eos # (Auto) 0.1 Baso # (Auto) 0.0 Abs Immat Gran (auto) 0.06 H Absolute Neuts (auto) 5.9 Absolute Nucleated RBC 0.000 Nucleated RBC % (auto) 0.0 aPTT Heparin Protocol 69.1 122.1 H* D Anion Gap Estim Creat Clear Calc Estimated GFR Random Glucose Lactic Acid Calcium 08/20/22 08/20/22 08/20/22 05:53 05:53 05:53 MCV MCH MCHC RDW Plt Count MPV Immature Gran % (Auto) Neut % (Auto) Lymph % (Auto) [place] % (Auto) Eos % (Auto) Baso % (Auto) Lymph # (Auto) [place] # (Auto) Eos # (Auto) Baso # (Auto) Abs Immat Gran (auto) Absolute Neuts (auto) Absolute Nucleated RBC Nucleated RBC % (auto) aPTT Heparin Protocol Cancelled Anion Gap 17 Estim Creat Clear Calc 155.4 Estimated GFR > 60 Random Glucose 138 H Lactic Acid 0.5 Calcium 8.4 D 08/20/22 12:23 MCV MCH MCHC RDW Plt Count MPV Immature Gran % (Auto) Neut % (Auto) Lymph % (Auto) [place] % (Auto) Eos % (Auto) Baso % (Auto) Lymph # (Auto) [place] # (Auto) Eos # (Auto) Baso # (Auto) Abs Immat Gran (auto) Absolute Neuts (auto) Absolute Nucleated RBC Nucleated RBC % (auto) aPTT Heparin Protocol 119.6 H* Anion Gap Estim Creat Clear Calc Estimated GFR Random Glucose Lactic Acid Calcium Procedures Date of Service Date of Service: 08/20/22 Progress Note: A&P Assessment and plan (1) Portal vein thrombosis: Status: Acute Assessment and Plan: HD #2 of heparin gtt. PTT is elevated at 119, hep gtt reduced to 17u/kg/hr, will continue to monitor, next PPT at 5pm tonight. Will repeat h/h in am. Unlcear etiology of OV thorombud, hematology, Dr Teague, has been consulted and labs are pending. RUQ ULS and BLE venous duplex doppler studies are ordered for tomorrow. Per Dr Gonzales, patietn to receive IV acetaminophen only for pain until we know the etiology for the thrombus. (2) S/P laparoscopic sleeve gastrectomy: Status: Acute Assessment and Plan: Continue bariatric phase 3 diet, daily pantoprazole, carafate and MVI. (3) NIK (obstructive sleep apnea): Status: Acute (4) Anxiety: Status: Acute (5) Depression: Status: Acute (6) Hypertension: Status: Acute (7) Morbid obesity: Status: Acute Time Spent With Patient Time: Total time spent is greater than 50% in coordination of care (as documented) at patient's floor/unit and/or counseling patient: Quality Stroke Does the patient have a stroke diagnosis?: No VTE Prior VTE?: No VTE Risk Level:: Surgical - high VTE Device Contraindication: Treatment Not Indicated VTE Drug Contraindication: N/A - Med Ordered
[2022-08-20] MEDS: Thiamine HCL 100 MG in 0.9 % Sodium Chloride 100 ML 202 MG IV (16:39)
--- NOTE | 2022-08-20 18:16 | PC.NURSE ---
Pt seen this morning by Yasmani Oviedo and Dr Cisse. Per MD, Heparin restarted at 18units/kg/hour and not held. PTT to be drawn at noon with result to be reported to Devika Lawson. Per Heparin is not to be adjusted according to protocol and only adjusted per MD order. PTT-HD 119.6 reported to Devika Lawson at 1309. Instructed to decrease Heparing to 17u/kg/hr and repeat PTT in 4 hours. Blood drawn, awaiting result
[2022-08-20 18:35] LABS: PTT Heparin Drip 116.1 SEC (53-77.9)
--- NOTE | 2022-08-20 19:24 | PC.NURSE ---
PTT-HD 116.1 reported to Devika Lawson. Orders received to decrease Heparin to 15u/kg/hr. Next PTT to be drawn at 2200 and reported to her.
--- NOTE | 2022-08-20 20:04 | PC.NURSE ---
Addendum entered by Cheryle Dye 08/20/22 20:28: Pt's is at bedside, pt had pain meds administered. Original Note: Pt is a/o x 5, Pt V/S are stable, pt is on the telemtry and it shows NSR. IVF are running and Pain meds were change. Pt has requested more pain med d/t her chrinic back pain. Provider Dr. Lawson was contacted and she says, she will order Diludid. will continue to monitor.
[2022-08-20 20:11] VITALS: BP 120/73; PULSE 78; RESP 20; TEMP 36.9; O2SAT 95
[2022-08-20 20:24] VITALS: RESP 20
[2022-08-20] MEDS: HYDROmorphone HCl 0.5 MG/0.5 ML SYRINGE 0.25 MG IVPUSH (20:24)
[2022-08-20 20:31] VITALS: BP 120/73; PULSE 79; RESP 20
[2022-08-20 21:08] VITALS: BP 130/68; PULSE 77; RESP 16; TEMP 36.2; O2SAT 95
[2022-08-20 22:08] LABS: PTT Heparin Drip 97.7 SEC (53-77.9)
[2022-08-20] MEDS: Sennosides 8.6 MG TABLET 17.2 MG PO (22:32)
--- NOTE | 2022-08-20 22:36 | PC.NURSE ---
Pt V/S are stable, pt is on the telemetry and it shows NSR, Pt 's is at bedside, pt has lower extremities bilaterally edema +1. pt reports, she is still having pain 5/10. wpt meds were given and pt IVF fluids and heparin are still running as order. will continue to monitor.
--- NOTE | 2022-08-20 22:41 | PC.NURSE ---
Pt had bariatric surgery therefore, she is currently only drinking protein shakes.
--- NOTE | 2022-08-20 22:46 | PC.NURSE ---
Addendum entered by Cheryle Dye 08/20/22 23:10: Provider requested to decrease the heparin drip at a 14 u/kg/hr, and at 2 am to let her know the results for her aPTT. Nurse and Bryce nurse will be working on the heparin drip. Addendum entered by Cheryle Dye 08/20/22 22:50: At 8:52 aPTT was 97.7 provider notified. Original Note: Pt heparin is running at 15u/kg/hr by provider order.
[2022-08-21] MEDS: HYDROmorphone HCl 0.5 MG/0.5 ML SYRINGE 0.25 MG IVPUSH ×3 (00:20→12:33)
[2022-08-21 00:34] VITALS: BP 128/60; PULSE 79; RESP 18; TEMP 36.9; O2SAT 94
[2022-08-21] MEDS: Acetaminophen 1,000 MG/100 ML PIGGYBACK 16.7 MG IV ×2 (02:13→10:09)
[2022-08-21 02:22] LABS: PTT Heparin Drip 90.3 SEC (53-77.9)
--- NOTE | 2022-08-21 02:44 | PC.NURSE ---
Pt aPTT has been drawn, 90.3. Per bariatric surgeon, no changes to Heparin drip at this time. Current rate is 14 u/kg/hr. Will redraw aPTT at 0600.
--- NOTE | 2022-08-21 03:53 | PC.NURSE ---
PT IVF are running slow d/t pt continues utilizing the bathroom constantly. pt is sleeping with the cpap machine and does not appear any distress.
[2022-08-21] MEDS: Heparin Sodium,Porcine/1/2NS 25,000 UNIT/250 ML IV.SOLN 17.25 UNIT IVCONT (05:06)
[2022-08-21] MEDS: Dextrose 5 % and 0.9 % NaCl 1,000 ML 150 ML IVCONT ×2 (05:21→13:25)
[2022-08-21 06:43] LABS: Hematocrit 30.8 % (37.0-47.0); Hemoglobin 10.2 g/dl (12.0-16.0); Mean Corpuscular HGB Conc 33.1 g/dl (31.0-35.0); Mean Corpuscular Hemoglobin 32.3 pg (27.0-33.0); Mean Corpuscular Volume 97.5 fL (80.0-98.0); Mean Platelet Volume 9.7 fL (9.4-12.3); Platelet Count 283 X10*3/uL (160-400); Red Blood Count 3.16 X10*6/uL (4.20-5.50); Red Cell Distribution Width 12.1 % (11.0-16.0)
[2022-08-21 06:50] LABS: PTT Heparin Drip 70.9 SEC (53-77.9)
[2022-08-21 06:56] LABS: Anion Gap 13 (12-20); Blood Urea Nitrogen 5 mg/dL (9-16); Calcium 8.1 mg/dL (8.4-10.2); Carbon Dioxide 22 mmol/L (22-29); Chloride 112 mmol/L (96-108); Creatinine Clr Calc Pharmacy 150.2; Estimated Glomerular Filt Rate > 60; Glucose Random 147 mg/dL (60-115); Phosphorus 3.2 mg/dL (2.7-4.5); Potassium 3.7 mmol/L (3.3-5.1); Sodium 143 mmol/L (135-145)
[2022-08-21 07:08] VITALS: RESP 20
--- NOTE | 2022-08-21 07:38 | P.PNGS_ITS ---
Subjective Subjective Date of Service: 08/21/22 Interval history: Pt feels well today, no complaints of abd pain. Tolerating her protein shakes. Ambulating in hallway. Physical Exam Vital Signs: Vital Signs: Last Vital Signs Temp 98.4 F 08/21/22 00:34 Pulse 79 08/21/22 00:34 Resp 20 08/21/22 07:08 BP 128/60 08/21/22 00:34 Pulse Ox 94 08/21/22 00:34 O2 Del Method 08/21/22 00:34 BMI result Body Mass Index 43.8 Const: General: cooperative, healthy appearing, comfortable and no acute distress Nutritional Appearance: obese Orientation/consciousness: patient oriented x3 GI: Inspection: Yes normal to inspection, No distended and Yes obesity Palpation (GI): Soft to palpation, nontender and no guarding Neuro: General: patient oriented x3 Extrem: General: Yes no pedal edema and Yes no calf tenderness Objective Data Active Medications Cyanocobalamin (Cyanocobalamin (Vitamin B-12) 100 Mcg Tablet) 100 mcg PO DAILY [facility] Diazepam (Diazepam 5 Mg Tablet) 2.5 mg PO DAILY PRN PRN Reason: anxiety Last Admin: 08/20/22 14:02 Dose: 2.5 mg Documented By: OBED Heparin Sodium (Porcine) (Heparin Sodium,Porcine 5,000 Unit/Ml Vial) 4,900 unit IVPUSH PROTOCOL BOLUS PRN; Protocol PRN Reason: 40 unit/kg - Heparin Protocol Last Admin: 08/19/22 13:15 Dose: 4,900 unit Documented By: DRAKE Heparin Sodium (Porcine) (Heparin Sodium,Porcine 5,000 Unit/Ml Vial) 9,900 unit IVPUSH PROTOCOL BOLUS PRN; Protocol PRN Reason: 80 unit/kg - Heparin Protocol Last Admin: 08/19/22 05:17 Dose: 9,900 unit Documented By: BHAVIK-CHANDRAB Hydromorphone HCl (Hydromorphone Hcl 0.5 Mg/0.5 Ml Syringe) 0.25 mg IVPUSH Q2H PRN; Protocol PRN Reason: Pain, Moderate (Pain Scale 4-6 Last Admin: 08/21/22 07:08 Dose: 0.25 mg Documented By: AYALA Heparin Sodium/Sodium Chloride (Heparin Sodium,Porcine/1/2ns) 25,000 unit in 250 mls @ 0 mls/hr IVCONT .Q0M [facility]; Protocol Last Admin: 08/21/22 05:06 Dose: 14 units/kg/hr, 17.25 mls/hr Documented By: LAY Co-signed By: AYALA Dextrose/Sodium Chloride (D5ns) 1,000 mls @ 150 mls/hr IVCONT .Q6H40M [facility] Last Admin: 08/21/22 05:21 Dose: 150 mls/hr Documented By: LAY Acetaminophen (Ofirmev) 1,000 mg in 100 mls @ 16.7 mls/hr IV .Q6H [facility] Last Admin: 08/21/22 02:13 Dose: 16.7 mls/hr Documented By: LAY Folic Acid 1 mg/ Sodium (Chloride) 50.2 mls @ 100.4 mls/hr IV DAILY [facility] Stop: 08/22/22 09:29 Last Infusion: 08/20/22 10:55 Dose: 0 mls/hr Documented By: OBED Thiamine HCl 100 mg/ Sodium (Chloride) 101 mls @ 202 mls/hr IV DAILY [facility] Pantoprazole Sodium (Pantoprazole Sodium 40 Mg/10 Ml Vial) 40 mg IVPUSH DAILY [facility] Last Admin: 08/20/22 07:59 Dose: 40 mg Documented By: OBED Senna (Sennosides 8.6 Mg Tablet) 17.2 mg PO BEDTIME [facility] Last Admin: 08/20/22 22:32 Dose: 17.2 mg Documented By: LAY Sodium Chloride (0.9 % Sodium Chloride Flush 3 Ml Syringe) 3 ml IVFLUSH QSHIFT [facility] Last Admin: 08/20/22 23:58 Dose: Not Given Documented By: AYALA Non-Admin Reason: IV Running Sucralfate (Sucralfate Oral Suspension 1 Gm/10 Ml Oral.Susp) 1 gm PO BID [facility] Last Admin: 08/20/22 22:33 Dose: 1 gm Documented By: LAY Labs CBC & Chem 7: 08/21/22 06:34 08/21/22 06:34 Labs: Laboratory Results - last 24 hr 08/20/22 08/20/22 08/20/22 12:23 18:02 21:52 MCV MCH MCHC RDW Plt Count MPV Absolute Nucleated RBC Nucleated RBC % (auto) aPTT Heparin Protocol 119.6 H* 116.1 H* 97.7 H Anion Gap Estim Creat Clear Calc Estimated GFR Random Glucose Calcium Phosphorus Magnesium 08/21/22 08/21/22 08/21/22 02:08 06:34 06:34 MCV 97.5 MCH 32.3 MCHC 33.1 RDW 12.1 Plt Count 283 MPV 9.7 Absolute Nucleated RBC 0.000 Nucleated RBC % (auto) 0.0 aPTT Heparin Protocol 90.3 H 70.9 D Anion Gap Estim Creat Clear Calc Estimated GFR Random Glucose Calcium Phosphorus Magnesium 08/21/22 06:34 MCV MCH MCHC RDW Plt Count MPV Absolute Nucleated RBC Nucleated RBC % (auto) aPTT Heparin Protocol Anion Gap 13 Estim Creat Clear Calc 150.2 Estimated GFR > 60 Random Glucose 147 H Calcium 8.1 L Phosphorus 3.2 Magnesium 2.0 Imaging US - abdomen: Radiologist's impression: Impressions Venous Duplex 08/21/22 08:16 IMPRESSION: No evidence for deep venous thrombosis in the visualized veins of the bilateral lower extremities. Doppler Study Ultrasound 08/21/22 08:29 IMPRESSION: Left portal vein thrombus similar to recent CT scan. Venous US: Radiologist's impression: Impressions Venous Duplex 08/21/22 08:16 IMPRESSION: No evidence for deep venous thrombosis in the visualized veins of the bilateral lower extremities. Doppler Study Ultrasound 08/21/22 08:29 IMPRESSION: Left portal vein thrombus similar to recent CT scan. Procedures Date of Service Date of Service: 08/21/22 Progress Note: A&P Assessment and plan (1) Portal vein thrombosis: Status: Acute Assessment and Plan: See below (2) S/P laparoscopic sleeve gastrectomy: Status: Acute Assessment and Plan: See below Plan HD #3 for portal vein thrombus 10 days s/p sleeve gastrectomy. Pt is asymptomatic today, therapeutic on heparin gtt. Repeat RUQ arterial ULS reveal stable portal vein thrombus, occluded. All other veins are patent. After discussion with Dr Gonzales and Dr Teague, the plan is to discharge patient home today on Elliquis 5 mg bid. She will follow up with Dr Teague in her office and also in the bariatric office as scheduled. Time Spent With Patient Time: Total time spent is greater than 50% in coordination of care (as documented) at patient's floor/unit and/or counseling patient: Quality Stroke Does the patient have a stroke diagnosis?: No VTE Prior VTE?: No VTE Risk Level:: Surgical - high VTE Device Contraindication: Treatment Not Indicated VTE Drug Contraindication: N/A - Med Ordered
[2022-08-21 08:41] VITALS: BP 139/76; PULSE 75; RESP 16; TEMP 36.7; O2SAT 98
[2022-08-21] MEDS: Folic Acid 1 MG in 0.9 % Sodium Chloride 50 ML 100.4 MG IV (10:08)
[2022-08-21] MEDS: Sucralfate Oral Suspension 1 GM/10 ML ORAL.SUSP PO (10:09)
[2022-08-21] MEDS: Pantoprazole Sodium 40 MG/10 ML VIAL IVPUSH (10:09)
[2022-08-21] MEDS: Multivitamin with Minerals Liq 15 ML LIQUID PO (10:09)
[2022-08-21] MEDS: Cyanocobalamin (Vitamin B-12) 100 MCG TABLET PO (10:09)
[2022-08-21] MEDS: Thiamine HCL 100 MG in 0.9 % Sodium Chloride 100 ML 202 MG IV (10:11)
--- NOTE | 2022-08-21 13:30 | PM.DS ---
DS: Providers Provider Date of Service: 08/21/22 Date of admission: 08/19/22 11:21 Primary care physician: Gin Amaro MD Consults: 08/19/22 16:55 Consult to Hematology / Oncology Routine Consulting Provider: Phong Teague Reason for consultation: portal vein thrombosis/ ? w/u for hypercoag state Has provider been notified: No DS: Diagnosis Discharge Diagnosis (1) Portal vein thrombosis: Status: Acute (2) S/P laparoscopic sleeve gastrectomy: Status: Acute DS: Summary Hospital Course Hospital Course: 51 yo woman who was 10 days s/p laparoscopic sleeve gastrectomy by Dr Gonzales [place] [facility] [place] with abdominal pain, low grade fever and generally not feeling well. She was found to have portal vein thrombosis on abd CT scan and was immediately started on heparin gtt. On 08/21 she had venous doppler studies of LE - which was negative for clot and had repeat Abd arterial ULS - who revealed portal vein occlusion due to thrombus, all other vessels remain patent. She has been tolerating her bariatric phase [address] diet[address] After discussion with Dr Gonzales and Dr Teague, zhou was deemed stable to go home on Elliquis 5 mg po bid. She will be followed in both the bariatric office and Dr Vee office. Time Spent with Patient Time attestation: Total time spent providing and/or coordinating discharge services: Discharge coordination time: Less than 30 minutes Quality: Safe Use of Opioids Does Pt have an Active Cancer Diagnosis on the Problem List?: No Quality: Stroke Does the patient have a stroke diagnosis?: No Physical Exam Vital Signs: Vital Signs: Last Vital Signs Temp 98.0 F 08/21/22 08:41 Pulse 75 08/21/22 08:41 Resp 16 08/21/22 08:41 BP 139/76 08/21/22 08:41 Pulse Ox 98 08/21/22 08:41 O2 Del Method 08/21/22 08:41 BMI result Body Mass Index 43.8 DS: Data Data Completed and Pending Completed studies during hospitalization [Text1]: Procedures Excision of Stomach, Percutaneous Endoscopic Approach, Vertical (08/09/22) Labs on day of discharge: Laboratory Results - last 24 hr 08/20/22 08/20/22 08/21/22 18:02 21:52 02:08 WBC RBC Hgb Hct MCV MCH MCHC RDW Plt Count MPV Absolute Nucleated RBC Nucleated RBC % (auto) aPTT Heparin Protocol 116.1 H* 97.7 H 90.3 H Sodium Potassium Chloride Carbon Dioxide Anion Gap BUN Creatinine Estim Creat Clear Calc Estimated GFR Random Glucose Calcium Phosphorus Magnesium 08/21/22 08/21/22 08/21/22 06:34 06:34 06:34 WBC 7.0 RBC 3.16 L Hgb 10.2 L Hct 30.8 L MCV 97.5 MCH 32.3 MCHC 33.1 RDW 12.1 Plt Count 283 MPV 9.7 Absolute Nucleated RBC 0.000 Nucleated RBC % (auto) 0.0 aPTT Heparin Protocol 70.9 D Sodium 143 Potassium 3.7 Chloride 112 H Carbon Dioxide 22 Anion Gap 13 BUN 5 L Creatinine 0.60 Estim Creat Clear Calc 150.2 Estimated GFR > 60 Random Glucose 147 H Calcium 8.1 L Phosphorus 3.2 Magnesium 2.0 Discharge Plan Discharge Anticipated Discharge Date/Time: 08/21/22 15:24 Patient Disposition: Home, Self-Care Discharge Diagnosis: Portal vein thrombosis Referrals: Gin Amaro MD [Primary Care Provider] - 1 Week Discharge Medications: New Eliquis 5 mg tablet 5 mg PO BID Qty: 60 0RF Continued pantoprazole 40 mg tablet,delayed release (DR/EC) 40 mg PO DAILY@0630 acetaminophen 650 mg/20.3 mL Solution 650 mg PO Q6H PRN (Reason: Pain (Scale Score 4-6)) oxycodone-acetaminophen [Percocet] 5-325 mg tablet 1 tab PO Q6H PRN (Reason: Pain) diazepam 5 mg tablet 2.5 mg PO DAILY PRN (Reason: anxiety) sucralfate 100 mg/mL suspension 10 ml PO BID Qty: 400 2RF Discharge Orders: Discharge Order (Routine); Ordered 08/21/22 Ordered By: Devika Lawson Activity on Discharge: As tolerated Stand Alone Forms: Patient Portal Discharge page Activity Restrictions/Additional Instructions: Please follow-up with your primary care physician tomorrow. If you have any worsening or new symptoms, please return to the emergency room or call 911 Care Plan Goals: Resolution of thrombus and weight loss. Health Concerns: portal vein thrombus and obesity Plan of Treatment: Start Elliquis 5 mg by mouth twice per day, first dose tonight. Continue bariatric diet and exercise rouitnes per Dr Staley's instructions. Follow up with Dr Teague in hematology office. Assessment: Portal Vein thrombus, s/p sleeve gastrectomy
--- NOTE | 2022-08-21 14:41 | PC.NURSE ---
PT DISCHARGED TO HOME, WILL FOLLOW UP WITH PCP, ANATOLIY AMB WITH STEADY GAIT, UNDERSTANDS ALL INSTRUCTIONS WITH TEACH BACK
[2022-08-21 19:46] LABS: Homocysteine 6.6 umol/L (<10.4)
[2022-08-22 14:51] LABS: Cardiolipin IgG Ab <2.0 GPL-U/mL; Cardiolipin IgM Ab <2.0 MPL-U/mL
[2022-08-22 22:16] LABS: Protein C Activity 81 % normal (70-180); Protein S Activity rflx Tot&Fr 66 % normal (60-140)
[2022-08-24 06:37] LABS: Hexagonal Phase Neutralization Positive (Negative)
[2022-08-24 07:07] LABS: PTT (LAC) Screen 81 sec (<=40); Thrombin Clotting Time 31 sec (13-19)
[2022-08-28 23:07] LABS: Factor V Leiden POSITIVE
[2022-08-29 02:02] LABS: Prothrombin 20210A NEGATIVE
== END 2022-08-21 15:05 | disposition home or self-care (01) | DRG 252 ==
LOC: HO.ED 08-19 04:41 → HO.EDOVER 08-19 11:39
PROVIDERS: Emergency Medicine; Internal Medicine Medical Oncology; Physician Assistant; Physician Assistant Surgical; Student in an Organized Health Care Education/Training Program; Admitting Provider Surgery; Emergency Provider Emergency Medicine; PCP Internal Medicine; Visit Provider Surgery
DX: K95.89 Other complications of other bariatric procedure (principal); I81 Portal vein thrombosis; E66.01 Morbid (severe) obesity due to excess calories; K21.9 Gastro-esophageal reflux disease without esophagitis; I10 Essential (primary) hypertension; G47.33 Obstructive sleep apnea (adult) (pediatric); D68.59 Other primary thrombophilia; F43.10 Post-traumatic stress disorder, unspecified; E78.5 Hyperlipidemia, unspecified; Z20.822 Contact with and (suspected) exposure to COVID-19; Z68.41 Body mass index [BMI] 40.0-44.9, adult; Z87.891 Personal history of nicotine dependence; Z88.8 Allergy status to other drugs, medicaments and biological substances; Z79.01 Long term (current) use of anticoagulants; Z79.899 Other long term (current) drug therapy
CPT/HCPCS: 36415; 74177; 80048; 80076; 81003; 81240; 81241; 83090; 83605; 83735; 84100; 85025; 85027; 85302; 85303; 85305; 85306; 85597; 85610; 85613; 85730; 86147; 87635; 93970; 93975; 99218; 99285; J0131; J1170; J2270; J3010; J3411; Q9967

== ENCOUNTER → 2022-09-04 15:16 | Outpatient (BNV) | payer MEDICAID, MEDICARE, SELFPAY | PROVIDERS: PCP Internal Medicine; Visit Provider Internal Medicine Medical Oncology | DX: I81 Portal vein thrombosis (principal) | CPT/HCPCS: 99204; 99212; 99213 ==

== ENCOUNTER 2022-11-01 15:49 | Outpatient (REF) | payer MEDICAID, SELFPAY ==
[2022-11-01 17:22] LABS: Anion Gap 13 (12-20); Blood Urea Nitrogen 18 mg/dL (9-16); Calcium 9.8 mg/dL (8.4-10.2); Carbon Dioxide 24 mmol/L (22-29); Chloride 111 mmol/L (96-108); Estimated Glomerular Filt Rate > 60; Glucose Random 161 mg/dL (60-115); Potassium 4.5 mmol/L (3.3-5.1); Sodium 143 mmol/L (135-145)
== END 2022-11-01 15:50 | disposition home or self-care (01) ==
LOC: HO.LAB 15:49
PROVIDERS: Physician Assistant Surgical; PCP Internal Medicine; Visit Provider Internal Medicine Medical Oncology
DX: I81 Portal vein thrombosis (principal)
CPT/HCPCS: 36415; 80048

== ENCOUNTER 2022-11-02 09:57 | Outpatient (REF) | payer MEDICAID, SELFPAY ==
--- NOTE | ~2022-11-02 | CT_ITS ---
EXAMINATION: CT ABDOMEN AND PELVIS WITH CONTRAST CLINICAL INFORMATION: Oral vein thrombosis. COMPARISON: CT 08/19/2022 TECHNIQUE: Multidetector volumetric images were obtained from the superior aspect of the liver through the pubic symphysis following administration 85 mL of Omnipaque 350 intravenous contrast. Sagittal and coronal reformatted images were obtained on the technologist's workstation. Oral contrast: No This CT examination was performed using dose optimization techniques as appropriate, variously including the following: *Automated exposure control *Adjustment of mA and/or kV according to patient size (this includes techniques or standardized protocols for targeted exams where dose is matched to indication/reason for exam; i.e. extremities or head) *Use of iterative reconstruction technique DLP: 704 mGy-cm FINDINGS: LUNG BASES: The visualized lung bases are unremarkable. LIVER, GALLBLADDER, AND BILIARY TREE: The liver borderline enlarged. There is normal shape and attenuation. No biliary ductal dilatation. Redemonstration of a cyst anteriorly in segment 5 of the liver. The main portal vein remains patent. Once again, the anterior branch of the right portal vein and the left portal vein do not enhance, suggesting thrombosis. The appearance is similar to prior. There is increased dilatation of the main portal vein, measuring 1.7 cm, compared to 1.4 cm on previous The gallbladder is unremarkable with no evidence of radiopaque gallstones, gallbladder wall thickening, or obvious pericholecystic inflammatory changes. PANCREAS: Unremarkable. SPLEEN: Normal size with no focal lesion. The splenic vein is patent. ADRENAL GLANDS.: Unremarkable. KIDNEYS AND URETERS: The kidneys are normal in size, shape, and attenuation. No hydronephrosis, hydroureter, or calculi seen. No perinephric stranding. BLADDER: Unremarkable. GASTROINTESTINAL TRACT: Status post gastric sleeve. Normal caliber small bowel. No obstruction. No colonic wall thickening or acute inflammation. Normal appendix. Diffuse colonic diverticulosis without diverticulitis. No free air or free fluid. ABDOMINAL WALL: Small fat-containing ventral abdominal wall hernia inferior to the umbilicus. LYMPH NODES: Normal. VASCULAR: Normal caliber aorta with mild atherosclerotic calcifications. PELVIC VISCERA: The uterus and adnexa are unremarkable. OSSEOUS STRUCTURES: No acute or suspicious osseous abnormality. Degenerative changes are noted in the spine, greatest at L4-L5. CT/CT abdomen pelvis w IV con IMPRESSION: The main portal vein remains patent, though there is increased dilatation from prior. The anterior branch of the right portal vein and the left portal vein do not enhance, suggesting thrombosis. This is similar to prior. Fleischner guidelines were followed.
[2022-11-02] MEDS: Barium Sulfate Oral (Vanilla) 450 ML ORAL.SUSP 900 ML PO (12:24)
[2022-11-02] MEDS: iohexoL 350 MG/ML 100 ML INFUS..BTL IV (12:25)
[2022-11-02 13:26] LABS: MANUAL DIFF FLAG NO
[2022-11-02 13:31] LABS: Basophils Percent Auto 0.6 % (0-2); Eosinophils Absolute Auto 0.1 X10*3/uL (0.0-0.4); Eosinophils Percent Auto 0.8 % (0-4); Hemoglobin 14.1 g/dl (12.0-16.0); Imm Gran Abs Auto 0.01 X10*3/uL (0.00-0.03); Imm Gran Pct Auto 0.2 % (0.0-0.4); Lymphocytes Absolute Auto 1.6 X10*3/uL (1.2-4.9); Lymphocytes Percent Auto 25.4 % (20-40); Mean Corpuscular HGB Conc 33.6 g/dl (31.0-35.0); Mean Corpuscular Volume 95.5 fL (80.0-98.0); Mean Platelet Volume 9.8 fL (9.4-12.3); Monocytes Absolute Auto 0.4 X10*3/uL (0.1-1.2); Monocytes Percent Auto 6.6 % (2-11); Neutrophils Absolute Auto 4.2 x10*3/uL (2.0-8.3); Neutrophils Percent Auto 66.4 % (45-73); Platelet Count 292 X10*3/uL (160-400); Red Cell Distribution Width 13.2 % (11.0-16.0); White Blood Count 6.4 X10*3/uL (4.8-10.8)
[2022-11-02 13:50] LABS: D Dimer High Sensitivity < 150 NG/ML
[2022-11-02 13:51] LABS: Alanine Aminotransferase 19 U/L (0-31); Albumin Level 4.2 g/dL (3.5-5.0); Alkaline Phosphatase 70 U/L (39-117); Anion Gap 14 (12-20); Aspartate Amino Transferase 18 U/L (5-31); Bilirubin Total 0.5 mg/dL (0.0-1.0); Blood Urea Nitrogen 16 mg/dL (9-16); Calcium 9.6 mg/dL (8.4-10.2); Carbon Dioxide 25 mmol/L (22-29); Chloride 108 mmol/L (96-108); Estimated Glomerular Filt Rate > 60; Glucose Random 106 mg/dL (60-115); Potassium 4.6 mmol/L (3.3-5.1); Sodium 142 mmol/L (135-145); Total Protein 6.5 g/dL (6.5-8.0)
[2022-11-08 23:33] LABS: PTT (LAC) Screen 34 sec (<=40)
== END 2022-11-02 09:58 | disposition home or self-care (01) ==
LOC: HO.CT 09:57
PROVIDERS: Internal Medicine Medical Oncology; Visit Provider Physician Assistant Surgical
DX: I81 Portal vein thrombosis (principal)
CPT/HCPCS: 36415; 74177; 80053; 85025; 85379; 85597; 85613; 85730; Q9967

== ENCOUNTER → 2022-11-19 13:53 | Outpatient (BNVA) | payer SELFPAY | PROVIDERS: PCP Internal Medicine; Visit Provider Physician Assistant Surgical | DX: Z13.89 Encounter for screening for other disorder (principal) ==

== ENCOUNTER → 2022-12-31 12:00 | Outpatient (BNVA) | payer MEDICAID, SELFPAY | PROVIDERS: Visit Provider Physician Assistant Surgical | DX: E66.9 Obesity, unspecified (principal); Z98.84 Bariatric surgery status; E55.9 Vitamin D deficiency, unspecified; R73.03 Prediabetes; E78.5 Hyperlipidemia, unspecified ==

== ENCOUNTER 2023-02-06 09:01 | Outpatient (REF) | payer OTHER, SELFPAY ==
[2023-02-06 09:20] LABS: MANUAL DIFF FLAG NO
[2023-02-06 09:29] LABS: Basophils Percent Auto 0.6 % (0-2); Eosinophils Absolute Auto 0.1 X10*3/uL (0.0-0.4); Eosinophils Percent Auto 1.7 % (0-4); Hematocrit 39.2 % (37.0-47.0); Imm Gran Abs Auto 0.02 X10*3/uL (0.00-0.03); Imm Gran Pct Auto 0.4 % (0.0-0.4); Lymphocytes Absolute Auto 1.6 X10*3/uL (1.2-4.9); Mean Corpuscular HGB Conc 33.2 g/dl (31.0-35.0); Mean Corpuscular Hemoglobin 31.9 pg (27.0-33.0); Mean Corpuscular Volume 96.3 fL (80.0-98.0); Mean Platelet Volume 9.4 fL (9.4-12.3); Monocytes Absolute Auto 0.5 X10*3/uL (0.1-1.2); Monocytes Percent Auto 8.9 % (2-11); Neutrophils Absolute Auto 3.1 x10*3/uL (2.0-8.3); Neutrophils Percent Auto 58.4 % (45-73); Platelet Count 275 X10*3/uL (160-400); Red Blood Count 4.07 X10*6/uL (4.20-5.50); Red Cell Distribution Width 12.8 % (11.0-16.0); White Blood Count 5.3 X10*3/uL (4.8-10.8)
[2023-02-06 10:13] LABS: Alanine Aminotransferase 15 U/L (0-31); Albumin Level 3.8 g/dL (3.5-5.0); Alkaline Phosphatase 68 U/L (39-117); Anion Gap 10 (12-20); Aspartate Amino Transferase 15 U/L (5-31); Bilirubin Total 0.5 mg/dL (0.0-1.0); Blood Urea Nitrogen 11 mg/dL (9-16); Calcium 8.9 mg/dL (8.4-10.2); Carbon Dioxide 27 mmol/L (22-29); Chloride 109 mmol/L (96-108); Cholesterol 239 mg/dL; Estimated Glomerular Filt Rate > 60; Glucose Random 101 mg/dL (60-115); HDL Cholesterol 64 mg/dL; Iron 96 mcg/dL (30-160); LDL Cholesterol Calculated 147 mg/dl; Percent Iron Saturation 32 % (15-50); Potassium 4.4 mmol/L (3.3-5.1); Sodium 142 mmol/L (135-145); Total Iron Binding Capacity 297 mcg/dL (228-428); Total Protein 5.8 g/dL (6.5-8.0); Triglycerides 143 mg/dL; Unsaturated Iron Binding 201 ug/dL
[2023-02-06 10:15] LABS: D Dimer High Sensitivity < 150 NG/ML
[2023-02-06 10:41] LABS: Ferritin 28 ng/mL (10-250); Folate 16.1 ng/mL (> or = 4.0); TSH reflex Free T4 2.22 uIU/mL (0.32-4.0); Vitamin B12 799 pg/mL (200-900)
[2023-02-06 11:45] LABS: Vitamin D 25-OH Total 37.5 ng/mL (>30)
[2023-02-08 14:58] LABS: PTHI 48 pg/mL (16-77)
[2023-02-10 16:58] LABS: Zinc 75 mcg/dL (60-130)
[2023-02-13 00:04] LABS: Vitamin A 41 mcg/dL (38-98)
[2023-02-13 08:04] LABS: PTT (LAC) Screen 34 sec (<=40)
[2023-02-18 12:04] LABS: Vitamin B1 23 nmol/L (8-30)
== END 2023-02-06 09:02 | disposition home or self-care (01) ==
LOC: HO.LAB 09:01
PROVIDERS: Internal Medicine Medical Oncology; PCP Internal Medicine; Visit Provider Physician Assistant Surgical
DX: E66.9 Obesity, unspecified (principal); E55.9 Vitamin D deficiency, unspecified; R73.03 Prediabetes; E78.5 Hyperlipidemia, unspecified; I81 Portal vein thrombosis; Z98.84 Bariatric surgery status
CPT/HCPCS: 36415; 80053; 80061; 82306; 82607; 82728; 82746; 83540; 83970; 84425; 84443; 84590; 84630; 85025; 85379; 85597; 85613; 85730

== ENCOUNTER → 2023-02-18 10:34 | Outpatient (BNVA) | payer OTHER, SELFPAY | PROVIDERS: Visit Provider Physician Assistant Surgical | DX: E66.9 Obesity, unspecified (principal); I81 Portal vein thrombosis; Z68.37 Body mass index [BMI] 37.0-37.9, adult | CPT/HCPCS: 99212 ==

== ENCOUNTER 2023-02-28 08:57 | Outpatient (REF) | payer OTHER, SELFPAY ==
--- NOTE | ~2023-02-28 | US_ITS ---
EXAMINATION: US DOPPLER ABDOMEN LIMITED CLINICAL INFORMATION: Follow-up portal vein thrombosis COMPARISON: Ultrasound 08/21/2022, CT abdomen and pelvis 11/02/2022 TECHNIQUE: Ultrasound along with color Doppler imaging and spectral analysis was performed of the abdomen. FINDINGS: The liver is normal in size and echogenicity. There is no intrahepatic duct dilation and no focal hepatic lesions are seen. The portal veins are patent and demonstrate hepatopedal flow. The main portal vein measures 1.5 cm. Previously seen portal vein thrombus is no longer visualized. Hepatic arteries are patent with appropriate upstroke and flow. Hepatic veins are patent. Inferior vena cava is patent and has normal waveforms. The spleen is unremarkable and the splenic vein is patent. No ascites US/US duplex arterial venous comp IMPRESSION: Patent visualized abdominal vasculature. No sonographic evidence of portal vein thrombus.
== END 2023-02-28 08:58 | disposition home or self-care (01) ==
LOC: HO.HMGCX 08:57
PROVIDERS: PCP Internal Medicine; Visit Provider Internal Medicine Medical Oncology
DX: I81 Portal vein thrombosis (principal)
CPT/HCPCS: 93975

== ENCOUNTER 2023-05-20 10:36 | Outpatient (REF) | payer OTHER, SELFPAY ==
[2023-05-20 11:42] LABS: MANUAL DIFF FLAG NO
[2023-05-20 11:51] LABS: Basophils Percent Auto 0.5 % (0-2); Eosinophils Absolute Auto 0.1 X10*3/uL (0.0-0.4); Eosinophils Percent Auto 1.3 % (0-4); Hemoglobin 13.2 g/dl (12.0-16.0); Imm Gran Abs Auto 0.02 X10*3/uL (0.00-0.03); Imm Gran Pct Auto 0.3 % (0.0-0.4); Lymphocytes Absolute Auto 1.7 X10*3/uL (1.2-4.9); Lymphocytes Percent Auto 27.9 % (20-40); Mean Corpuscular Hemoglobin 31.7 pg (27.0-33.0); Mean Corpuscular Volume 95.9 fL (80.0-98.0); Mean Platelet Volume 9.2 fL (9.4-12.3); Monocytes Absolute Auto 0.6 X10*3/uL (0.1-1.2); Monocytes Percent Auto 9.3 % (2-11); Neutrophils Absolute Auto 3.7 x10*3/uL (2.0-8.3); Neutrophils Percent Auto 60.7 % (45-73); Platelet Count 271 X10*3/uL (160-400); Red Blood Count 4.17 X10*6/uL (4.20-5.50); Red Cell Distribution Width 13.1 % (11.0-16.0); White Blood Count 6.2 X10*3/uL (4.8-10.8)
[2023-05-20 12:03] LABS: D Dimer High Sensitivity < 150 NG/ML
[2023-05-20 12:40] LABS: Alanine Aminotransferase 14 U/L (0-31); Alkaline Phosphatase 64 U/L (39-117); Anion Gap 9 (12-20); Aspartate Amino Transferase 14 U/L (5-31); Bilirubin Total 0.4 mg/dL (0.0-1.0); Blood Urea Nitrogen 13 mg/dL (9-16); Calcium 9.5 mg/dL (8.4-10.2); Carbon Dioxide 30 mmol/L (22-29); Chloride 108 mmol/L (96-108); Estimated Glomerular Filt Rate > 60; Glucose Random 95 mg/dL (60-115); Potassium 4.4 mmol/L (3.3-5.1); Sodium 143 mmol/L (135-145); Total Protein 6.6 g/dL (6.5-8.0)
== END 2023-05-20 10:37 | disposition home or self-care (01) ==
LOC: HO.LAB 10:36
PROVIDERS: Absent Provider Internal Medicine Medical Oncology; PCP Internal Medicine; Visit Provider Physician Assistant Surgical
DX: I81 Portal vein thrombosis (principal)
CPT/HCPCS: 36415; 80053; 85025; 85379

== ENCOUNTER 2023-05-20 10:36 | Outpatient (AMB) | payer OTHER, SELFPAY ==
--- NOTE | 2023-05-20 10:26 | A.OFFVIS_ITS ---
Intake VS Expanded 05/20/23 10:29 Height 5 ft 6 in Weight 232 lb 6.4 oz BMI 37.5 BP 129/62 Blood Pressure Location Lt brachial Blood Pressure Position Sitting Pulse 72 Pulse Source Pulse Oximeter Temp 98.0 F Temperature Source Temporal Artery Scan Pulse Oximetry 98 Oxygen Delivery Method Room Air Body Fat 105.6 Body Fat Percentage 45.4 Free Fat Mass 126.8 Muscle Mass 120.4 Visceral Mass 13.0 Water Mass 90.4 BMR 1,778 Intake Visit Reasons: (ov) PO LSG 08/08/22 Allergies sertraline [SERTRALINE] Allergy (Unknown, Verified 05/20/23 10:45) SLOWED BREATHING HPI HPI Comments History of Present Illness Details This?a?52?yo female who is s/p LSG without hiatal hernia repair on?08/09/[address] Gonzales. Presents for 9 month post op visit. Weight today is 232.4 pounds, with a BMI of 37.5.? There has been a 60.6 pound weight loss,(initial weight 293 pounds) since starting the program on 01/19/22 reflecting a 20.6% total body weight loss and a weight loss of 38.8 pounds since surgery (operative weight 271.2 pounds) reflecting a 14.2% TBWL since surgery.? She developed a portal vein thrombosis post operatively requiring several days of hospital admission and then transition to NOAC, Eliquis.? She continues to be followed by Dr Teague (heme/onc) for hypercoaguable w/u.?Last seen by Heme/Onc 04/22/23 and was told that she will continue Eliquis for another 3 months and f/u in the office then for further determination.?Repeat CT scan of abdomen was ordered and has not yet been done She states she gets a lightning bolt pain to RUQ lasting seconds or less, occurring a few times a week decreasing over the last several weeks. Plans for repeat CT abdomen pending. ? Able to exercise.? Previous meal plan includes: Celebrate 4:1 2 scoops in 8 oz unsweetened almond milk x 2 meal 7 forks protein and 7 forks veg 60 oz water ? Exercise routine includes: [employer], 4 days per week using elliptical, treadmill (fat burn mode) and weight training.? Burning 300-400 per session.?Will add walking in the pool Walking outside 3 days, 300 calories broken in two walks.? PFSH Medical History Acute viral syndrome Anxiety Binge eating disorder Depression DJD (degenerative joint disease) GERD (gastroesophageal reflux disease) History of deviated nasal septum Hyperlipidemia Hypertension Morbid obesity Nephrolithiasis NIK (obstructive sleep apnea) Prediabetes PTSD (post-traumatic stress disorder) Stress incontinence Tachycardia Surgical History Hx of arthroscopic knee surgery Hx of prior ablation treatment Hx of spinal surgery S/P gastric sleeve procedure Family History Mother Depression Ovarian cancer in remission Hypertension Ovarian cancer Father Spine pain Deep vein thrombosis Seizure Hypertension Brother Migraines Son Obesity Son No problems noted. Maternal Grandmother Intestinal cancer Maternal Grandfather Colorectal cancer Maternal Aunt Breast cancer Ovarian cancer Maternal Aunt Ovarian cancer Maternal Aunt Ovarian cancer Social History Household Members: Significant Other, Family and Children Housing: House Are you a primary health care marketing manager to a significant other at home: No Do you presently have visiting nurse or other home services: No Alcohol intake: never Patient Tobacco Use Status: Former Tobacco user Quit Date: 10 yrs ago Tobacco use type: Cigarette service: No Current occupational status: unemployed Review of Systems Const All systems reviewed & are unremarkable except as noted in HPI and below Physical Exam Vital Signs: Last Vital Signs Temp 98.0 F 05/20/23 10:29 Pulse 72 05/20/23 10:29 BP 129/62 05/20/23 10:29 Pulse Ox 98 05/20/23 10:29 Oxygen Delivery Method Room Air 05/20/23 10:29 BMI result Body Mass Index 37.5 Assessment & Plan Assessment & Plan (1) Obesity (BMI 30-39.9): Code(s): E66.9 - Obesity, unspecified Plan: change meal plan to Pure protein 1 scoop 1/2 scoop Atkins bar meal 7 forks/7 forks Continue exercise Abd pain likely adhesions although abd CT scan ordered as f/u to PVT, not yet done rtc 3 months Medications: Discontinued apixaban 5 mg PO BID 60 tabs 0RF Coding Level of Care Code Est Pt Level 2 (14557) Diagnoses Obesity (BMI 30-39.9) E66.9
[2023-05-20 10:29] VITALS: BP 129/62; PULSE 72; TEMP 36.7; O2SAT 98; BMI 37.5
== END 2023-05-20 11:19 | disposition home or self-care (01) ==
LOC: HO.HBS 10:36
PROVIDERS: PCP Internal Medicine; Visit Provider Physician Assistant Surgical
DX: E66.9 Obesity, unspecified (principal); Z68.37 Body mass index [BMI] 37.0-37.9, adult; Z90.3 Acquired absence of stomach [part of]; Z98.84 Bariatric surgery status
CPT/HCPCS: 99213

== ENCOUNTER 2023-05-29 08:34 | Outpatient (REF) | payer OTHER, SELFPAY ==
--- NOTE | ~2023-05-29 | CT_ITS ---
EXAMINATION: CT ABDOMEN AND PELVIS WITH CONTRAST CLINICAL INFORMATION: Follow-up liver cyst and portal vein thrombosis. COMPARISON: CT scan the abdomen and pelvis dated 11/02/2022. TECHNIQUE: Multidetector volumetric images were obtained from the superior aspect of the liver through the pubic symphysis following administration 85 mL of Omnipaque 350 intravenous contrast. Sagittal and coronal reformatted images were obtained on the technologist's workstation. Oral contrast: No This CT examination was performed using dose optimization techniques as appropriate, variously including the following: *Automated exposure control *Adjustment of mA and/or kV according to patient size (this includes techniques or standardized protocols for targeted exams where dose is matched to indication/reason for exam; i.e. extremities or head) *Use of iterative reconstruction technique DLP: 671 mGy-cm FINDINGS: LUNG BASES: The visualized lung bases are unremarkable. LIVER, GALLBLADDER, AND BILIARY TREE: Mild diffuse decreased hepatic attenuation without focal abnormality. No gallbladder/biliary abnormality. PANCREAS: Unremarkable. SPLEEN: Unremarkable. ADRENAL GLANDS: Unremarkable. KIDNEYS AND URETERS: The kidneys are normal in size, shape, and attenuation. No hydronephrosis, hydroureter, or calculi seen. No perinephric stranding. BLADDER: Unremarkable. GASTROINTESTINAL TRACT: Post surgical changes are seen in the proximal stomach with very small hiatal hernia. The remainder of the stomach and small bowel are unremarkable. The appendix is unremarkable. Mild to moderate diverticulosis is seen throughout the colon. The rectum is unremarkable. ABDOMINAL WALL: Very small fat-containing midline supraumbilical, umbilical and infraumbilical hernias are seen without associated abnormality. LYMPH NODES: No lymphadenopathy. VASCULAR: Unremarkable. PELVIC VISCERA: Unremarkable. OSSEOUS STRUCTURES: Severe degenerative disc disease is seen at L4-L5 with mild to moderate bilateral neural foraminal narrowing. CT/CT abdomen pelvis w IV con IMPRESSION: 1. No acute intra-abdominal/pelvic abnormality. 2. Mild hepatic steatosis without focal abnormality. 3. Mild to moderate colonic diverticulosis without evidence for acute diverticulitis. 4. Very small hiatal hernia with postsurgical changes in the proximal stomach. 5. Very small fat-containing midline supraumbilical, umbilical and infraumbilical hernias without associated abnormality. 6. L4-L5 severe degenerative disc disease with mild to moderate bilateral neural foraminal narrowing.
[2023-05-29] MEDS: iohexoL 350 MG/ML 100 ML INFUS..BTL IV (09:00)
== END 2023-05-29 08:35 | disposition home or self-care (01) ==
LOC: HO.CT 08:34
PROVIDERS: PCP Internal Medicine; Visit Provider Internal Medicine Medical Oncology
DX: I81 Portal vein thrombosis (principal)
CPT/HCPCS: 74177; Q9967

== ENCOUNTER 2023-09-04 11:03 | Outpatient (AMB) | payer OTHER, SELFPAY ==
--- NOTE | 2023-09-04 11:04 | A.OFFVIS_ITS ---
Intake VS Expanded 09/04/23 11:13 BP 132/63 Blood Pressure Location Rt brachial Blood Pressure Position Sitting Pulse 70 Pulse Source Pulse Oximeter Temp 99.0 F Temperature Source Temporal Artery Scan Pulse Oximetry 99 Oxygen Delivery Method Room Air Height 5 ft 6 in Weight 233 lb 9.6 oz BMI 37.7 Body Fat % 45.5 Body Fat Mass 106.2 Fat Free Mass 127.2 Visceral Fat Rating 13.0 Body Water % 38.8 Body Water Mass 90.6 Muscle Mass/Score 120.8 Basal Metabolic Rate/Score 1,785 Intake Visit Reasons: (ov) PO LSG 08/08/22 Online Journalist Required: No Allergies sertraline [SERTRALINE] Allergy (Unknown, Verified 09/04/23 11:06) SLOWED BREATHING Medication List - Last Reconciled 09/04/23 by MAXIM Jaime diazepam 2.5 mg PO DAILY PRN metoprolol succinate ER 12.5 mg PO DAILY oxycodone-acetaminophen 5-325 mg (Percocet) 1 tab PO Q6H PRN HPI HPI Comments History of Present Illness Details This?a?52?yo female who is s/p LSG without hiatal hernia repair on?08/09/[address] Gonzales. Presents for 1 year post op visit. Weight today is 233.6 pounds, with a BMI of 37.7.? There has been a 59.4 pound weight loss,(initial weight 293 pounds) since starting the program on 01/19/22 reflecting a 20.2% total body weight loss and a weight loss of 37.6 pounds since surgery (operative weight 271.2 pounds) reflecting a 13.8% TBWL since surgery.? She developed a portal vein thrombosis post operatively requiring several days of hospital admission and then transition to NOAC, Eliquis.? She continues to be followed by Dr Teague (heme/onc) for hypercoaguable w/u.?Last seen by Heme/Onc 07/23/23 and she is now off of Eliquis and has had no further significant pain in her right upper quadrant of her abdomen. She has began to experience bilateral lateral ankle pain at night. This is very painful, there is a concern this may be related to underlying ankylosing spondylolysis and she is scheduled to follow-up with Rheumatology in approximately a month. This has significantly limited her exercise capacity in that she continues to try as much as she is able but is somewhat limited by her pains both in the ankles and joints as well as her tailbone. She additionally endorses switching to [employer] lean protein powder as well as a coconut almond blend low calorie milk. meal plan includes: shake [employer] lean 1 scoop (25 gm) in 8 oz low fat coconut/almond milk, 830-930 1 egg white shake 1/2 scoop in 8 oz milk or water, 12-1 1/2 1 ZP or atkins bar meal 6 pm, 4 oz chickpea zucchini drinking 60 oz water ? Exercise routine includes: [employer], 2 days per week using elliptical, treadmill (fat burn mode) and weight training.? Burning 300-400 per session.? Walking outside 1-2 days, 300 calories broken in two walks.? Any post op complications: yes, PVT NIK: continues DM: never HTN: never Hyperlipidemia: never GERD:?0-5 scale ??0 = no symptoms ??1 = symptoms noticeable but not bothersome 2 =symptoms bothersome but not daily ? 3 = symptoms bothersome and daily 4 = symptoms affect daily activities 5 = symptoms are incapacitating, unable to do daily activities ? How bad is the heartburn: 0 ? Heartburn while lying down: 00 ? Heartburn when standing up:0] ? Heartburn after meals: 0 ? Does heartburn change your diet: 0 ? Does heartburn wake you up from sleep: 0 ? Do you have difficulty swallowin ? Do you have pain with swallowin ? If you take medicine for your reflux, does this affect your daily life: 0 Satisfaction with present condition - satisfied or not satisfied: not satisifed [facility] Medical History Acute viral syndrome NIK (obstructive sleep apnea) Binge eating disorder DJD (degenerative joint disease) Stress incontinence PTSD (post-traumatic stress disorder) Anxiety Depression Nephrolithiasis Prediabetes Hyperlipidemia GERD (gastroesophageal reflux disease) Tachycardia Hypertension Morbid obesity History of deviated nasal septum Surgical History Hx of colonoscopy S/P gastric sleeve procedure Hx of arthroscopic knee surgery Hx of prior ablation treatment Hx of spinal surgery Family History Mother Depression Ovarian cancer in remission Hypertension Ovarian cancer Father Spine pain Deep vein thrombosis Seizure Hypertension Brother Migraines Son Obesity Son No problems noted. Maternal Grandmother Intestinal cancer Maternal Grandfather Colorectal cancer Maternal Aunt Breast cancer Ovarian cancer Maternal Aunt Ovarian cancer Maternal Aunt Ovarian cancer Social History Household Members: Significant Other, Family and Children Housing: House Are you a primary care transition coordinator to a significant other at home: No Do you presently have visiting nurse or other home services: No Alcohol intake: never Patient Tobacco Use Status: Former Tobacco user Quit Date: 10 yrs ago Tobacco use type: Cigarette service: No Current occupational status: unemployed Review of Systems Const All systems reviewed & are unremarkable except as noted in HPI and below Physical Exam Vital Signs: Last Vital Signs Temp 99.0 F 09/04/23 11:13 Pulse 70 09/04/23 11:13 BP 132/63 09/04/23 11:13 Pulse Ox 99 09/04/23 11:13 Oxygen Delivery Method Room Air 09/04/23 11:13 BMI result Body Mass Index 37.7 Const General: cooperative and no acute distress Orientation/consciousness: patient oriented x3 Resp Effort & Inspection: normal respiratory effort Auscultation: clear to auscultation bilaterally Cardio Rate: regular rate Rhythm: regular rhythm GI Inspection: Yes normal to inspection and Yes incision (well healed) Palpation (GI): Soft to palpation and no masses Neuro General: patient oriented x3 Assessment & Plan Assessment & Plan (1) Obesity (BMI 30-39.9): Code(s): E66.9 - Obesity, unspecified Plan: We identified that the exercise portion is lacking due to chronic pain. She is going to look into the [employer] and was given a paper for a discount on the membership. She was encouraged to walk in the pool, water aerobics and swimming. We will check yearly labs. Her meal plan is balanced although I would suggest prolonging the duration of her shakes to 2 hours. Additionally measuring her food by fork fulls, 7 of protein and 7 of vegetables. She will text me with any questions and return to clinic in approximately 6 weeks Coding Level of Care Code Est Pt Level 4 (04710) Diagnoses Obesity (BMI 30-39.9) E66.9
[2023-09-04 11:13] VITALS: BP 132/63; PULSE 70; TEMP 37.2; O2SAT 99; BMI 37.7
== END 2023-09-04 12:08 | disposition home or self-care (01) ==
PROVIDERS: PCP Internal Medicine; Visit Provider Physician Assistant Surgical
DX: E66.9 Obesity, unspecified (principal); Z68.37 Body mass index [BMI] 37.0-37.9, adult; Z90.3 Acquired absence of stomach [part of]; Z98.84 Bariatric surgery status
CPT/HCPCS: 99213

== ENCOUNTER → 2023-09-04 11:03 | Outpatient (BNVA) | payer OTHER, SELFPAY | PROVIDERS: PCP Internal Medicine; Visit Provider Physician Assistant Surgical | DX: E66.9 Obesity, unspecified (principal); Z68.37 Body mass index [BMI] 37.0-37.9, adult | CPT/HCPCS: 99212 ==

== ENCOUNTER 2023-10-25 11:06 | Outpatient (AMB) | payer OTHER, SELFPAY ==
[2023-10-25 11:08] VITALS: BP 116/84; PULSE 84; TEMP 36.1; O2SAT 96
--- NOTE | 2023-10-25 11:08 | MHC.OFFVIS ---
Intake Vital Signs 10/25/23 11:08 Height 5 ft 6 in BMI Reason not done Patient refused/unable BP 116/84 Blood Pressure Location Rt brachial Position Sitting Pulse 84 Pulse Source Pulse Oximeter Temp 97 F Temp Source Skin Pulse Oximetry (%) 96 Oxygen Delivery Method Room Air Intake Visit Reasons: Intake Note: New pt presents today for consult. Human Resources Compensation Analyst Required: No Accompanied by: Spouse Allergies sertraline [SERTRALINE] Allergy (Unknown, Verified 10/25/23 11:11) SLOWED BREATHING Medication List - Last Reconciled 10/25/23 by Maverick Colon MD diazepam 2.5 mg PO DAILY PRN metoprolol succinate ER 12.5 mg PO DAILY multivitamin 1 tab PO DAILY oxycodone-acetaminophen 5-325 mg (Percocet) 1 tab PO Q6H PRN HPI HPI Comments History of Present Illness Details This is a 53-year-old female who presents for evaluation of ankylosing spondylitis. Patient states that she has had degenerative disc disease of her spine for many years. She was in an accident in her 20s and she was found to have degenerative disc disease in her L-spine. In her 30s she had L-spine surgery. Since then she has had chronic low back pain. She received multiple steroid injections in her spine, she states that they stopped helping. Most recently a spinal cord stimulator was suggested and patient declined. She states that the diagnosis of ankylosing spondylitis was always in her records but she does not recall ever getting seen by a receiving associate store or taking DMARDs regularly. She is unaware of any family history of an autoimmune rheumatic disease. She states that she continues to have chronic low back pain that radiates down her lower extremities. She has a torn meniscus in her left knee and did an arthroscopic procedure years ago and she does have significant arthritis affecting her left knee. She has been using a cane for a few years now. Recently she has been having right ankle pain that happens at night, the pain is sharp and abrupt. It happens on the days that she had been more active. Does not recall whether there was any specific swelling. Recently she has been having headaches that last 3-4 days. They start in her lower back and travel up her spine into her head. She denies any rashes. She denies any history of psoriasis or family history of an autoimmune rheumatic disease. Of note patient had portal vein thrombosis in fall of 2021 after a bariatric procedure, she was found to be heterozygous for factor 5 Leiden and positive for lupus anticoagulant. She did get evaluated [facility] Medical History Acute viral syndrome NIK (obstructive sleep apnea) Binge eating disorder DJD (degenerative joint disease) Stress incontinence PTSD (post-traumatic stress disorder) Anxiety Depression Nephrolithiasis Prediabetes Hyperlipidemia GERD (gastroesophageal reflux disease) Tachycardia Hypertension Morbid obesity History of deviated nasal septum Surgical History Hx of colonoscopy S/P gastric sleeve procedure Hx of arthroscopic knee surgery Hx of prior ablation treatment Hx of spinal surgery Family History Mother Depression Ovarian cancer in remission Hypertension Ovarian cancer Father Spine pain Deep vein thrombosis Seizure Hypertension Brother Migraines Son Obesity Son No problems noted. Maternal Grandmother Intestinal cancer Maternal Grandfather Colorectal cancer Maternal Aunt Breast cancer Ovarian cancer Maternal Aunt Ovarian cancer Maternal Aunt Ovarian cancer Social History Household Members: Significant Other, Family and Children Housing: House Are you a primary care team assistant to a significant other at home: No Do you presently have visiting nurse or other home services: No Alcohol intake: never Comment: ED Overflow Patient Tobacco Use Status: Former Tobacco user Quit Date: 10 yrs ago Tobacco use type: Cigarette service: No Current occupational status: unemployed Female Reproductive History Menstrual Total pregnancies: 2 Review of Systems Const Reports fatigue, Reports headache(s) and Reports weakness ENT Reports headache(s) Card Reports dyspnea Resp Reports dyspnea Musc Reports back pain and Reports arthralgias Neuro Reports headache(s) and Reports weakness Endo Reports fatigue Physical Exam Vital Signs: Last Vital Signs Temp 97 F 10/25/23 11:08 Pulse 84 10/25/23 11:08 BP 116/84 10/25/23 11:08 Pulse Ox 96 10/25/23 11:08 Oxygen Delivery Method Room Air 10/25/23 11:08 Const General: cooperative, healthy appearing and comfortable Nutritional Appearance: obese morbidly obese Orientation/consciousness: patient oriented x3 Limitations: ambulation with cane HEENT Head: Yes normocephalic and Yes atraumatic Resp Effort & Inspection: normal respiratory effort and able to speak in complete sentences Auscultation: clear to auscultation bilaterally Cardio Rate: regular rate Neuro General: patient oriented x3 Extrem Other: Mild osteoarthritic changes of both hands with no active synovitis Normal range of motion of hands, elbows, wrists, shoulders without pain Multiple paraspinal muscle tenderness , more severe in the lumbar area Bilateral knee crepitus, left knee pain with any range of motion Right buttock tenderness to palpation Bilateral positive straight leg raise test Negative Fabere test bilaterally Bilateral trochanteric bursa area tenderness with negative Shalonda's test Normal nailfold capillaroscopy Can barely bend over with Deneen test Assessment & Plan Assessment & Plan (1) Chronic lower back pain: Code(s): M54.50 - Low back pain, unspecified; G89.29 - Other chronic pain Qualifiers: Back pain laterality: bilateral Sciatica presence: with sciatica Sciatica laterality: bilateral sciatica Qualified Code(s): M54.42 - Lumbago with sciatica, left side; M54.41 - Lumbago with sciatica, right side; G89.29 - Other chronic pain Plan: This is a 53-year-old female who presents for evaluation of ankylosing spondylitis patient has had chronic degenerative disc disease of her L-spine since her 20s and had L-spine surgery in her 30s, and received multiple steroid injections. She states that ankylosing spondylitis was in her chart. She does not believe that she followed up regularly with a receiving associate store and received a DMARD. Will check bilateral SI joint x-rays to evaluate for sacroiliitis and bilateral ankle x-rays to evaluate for enthesitis (2) Headache: Code(s): R51.9 - Headache, unspecified Qualifiers: Headache type: cervicogenic headache Qualified Code(s): G44.86 - Cervicogenic headache Plan: Consider evaluation by Neurology (3) Greater trochanteric bursitis of both hips: Code(s): M70.61 - Trochanteric bursitis, right hip; M70.62 - Trochanteric bursitis, left hip Plan: Will discuss different treatment options next visit Plan I spent 47 minutes reviewing patient's chart, evaluating patient, ordering diagnostic workup, counseling patient and documenting in the chart Orders: Orders Complete Blood Count Auto Diff Today G89.29 - Other chronic pain, M54.50 - Low back pain, unspecified Comprehensive Met. Panel Today . - Other chronic pain, M54.50 - Low back pain, unspecified C Reactive Protein Today . - Other chronic pain, M54.50 - Low back pain, unspecified XR ankle RT min 3V Today G89. - Other chronic pain, M54.50 - Low back pain, unspecified XR sacroiliac joint min 3V Today G89. - Other chronic pain, M54.50 - Low back pain, unspecified HLA B27 Today M45.9 - Ankylosing spondylitis of unspecified sites in spine Cyclic Citrullinated Peptide Today M25.40 - Effusion, unspecified joint Erythrocyte Sedimentation Rate Today . - Other chronic pain, M54.50 - Low back pain, unspecified XR ankle LT min 3V Today G. - Other chronic pain, M54.50 - Low back pain, unspecified Rheumatoid Factor Today M25.40 - Effusion, unspecified joint Coding Level of Care Code New Pt Level 4 (85664) Diagnoses Chronic bilateral low back pain with bilateral sciatica M54.42; M54.41; G. Back pain laterality: bilateral Sciatica presence: with sciatica Sciatica laterality: bilateral sciatica Cervicogenic headache G44.86 Headache type: cervicogenic headache Greater trochanteric bursitis of both hips M70.61; M70.62
== END 2023-10-25 11:45 | disposition home or self-care (01) ==
PROVIDERS: PCP Internal Medicine; Visit Provider Student in an Organized Health Care Education/Training Program
DX: M54.42 Lumbago with sciatica, left side (principal); M54.41 Lumbago with sciatica, right side; G89.29 Other chronic pain; G44.86 Cervicogenic headache; M70.61 Trochanteric bursitis, right hip; M70.62 Trochanteric bursitis, left hip
CPT/HCPCS: 99204

== ENCOUNTER → 2023-10-25 11:06 | Outpatient (BNVA) | payer OTHER, SELFPAY | PROVIDERS: PCP Internal Medicine; Visit Provider Student in an Organized Health Care Education/Training Program | DX: M54.42 Lumbago with sciatica, left side (principal); M54.41 Lumbago with sciatica, right side; G89.29 Other chronic pain; G44.86 Cervicogenic headache; M70.61 Trochanteric bursitis, right hip; M70.62 Trochanteric bursitis, left hip | CPT/HCPCS: 99202 ==

== ENCOUNTER 2023-11-20 10:25 | Outpatient (REF) | payer OTHER, SELFPAY ==
--- NOTE | ~2023-11-20 | XR_ITS ---
EXAMINATION: XR ANKLE, RIGHT CLINICAL INFORMATION: Pain. COMPARISON: None available. TECHNIQUE: AP, lateral, and mortise views of the right ankle. FINDINGS: Bony alignment and mineralization are normal. The ankle mortise is intact. No fracture, dislocation or joint effusion is seen. Boehler's angle is normal. There are moderate posterior and small plantar calcaneal spurs. No focal soft tissue swelling, gas or foreign body is seen. XR/XR ankle LT min 3V IMPRESSION: 1. There is no fracture, dislocation or right ankle joint effusion. 2. There are calcaneal spurs. EXAMINATION: XR ANKLE, LEFT CLINICAL INFORMATION: Pain. COMPARISON: None available. TECHNIQUE: AP, lateral, and mortise views of the left ankle. FINDINGS: Bony alignment and mineralization are normal. The ankle mortise is intact. No fracture, dislocation or left ankle joint effusion is seen. Boehler's angle is normal. There are moderate posterior and plantar calcaneal spurs. No focal soft tissue swelling, gas or foreign body is seen. IMPRESSION: 1. There is no fracture, dislocation or left ankle joint effusion. 2. There are calcaneal spurs.
--- NOTE | ~2023-11-20 | XR_ITS ---
EXAMINATION: XR ANKLE, RIGHT CLINICAL INFORMATION: Pain. COMPARISON: None available. TECHNIQUE: AP, lateral, and mortise views of the right ankle. FINDINGS: Bony alignment and mineralization are normal. The ankle mortise is intact. No fracture, dislocation or joint effusion is seen. Boehler's angle is normal. There are moderate posterior and small plantar calcaneal spurs. No focal soft tissue swelling, gas or foreign body is seen. XR/XR ankle RT min 3V IMPRESSION: 1. There is no fracture, dislocation or right ankle joint effusion. 2. There are calcaneal spurs. EXAMINATION: XR ANKLE, LEFT CLINICAL INFORMATION: Pain. COMPARISON: None available. TECHNIQUE: AP, lateral, and mortise views of the left ankle. FINDINGS: Bony alignment and mineralization are normal. The ankle mortise is intact. No fracture, dislocation or left ankle joint effusion is seen. Boehler's angle is normal. There are moderate posterior and plantar calcaneal spurs. No focal soft tissue swelling, gas or foreign body is seen. IMPRESSION: 1. There is no fracture, dislocation or left ankle joint effusion. 2. There are calcaneal spurs.
--- NOTE | ~2023-11-20 | XR_ITS ---
EXAMINATION: XR SACROILIAC JOINTS CLINICAL INFORMATION: Lower back pain. COMPARISON: None available. TECHNIQUE: AP and bilateral Judet views of the sacroiliac joints FINDINGS: Bones and soft tissues are normal. No fracture. Alignment is anatomic. Sacroiliac joint spaces are well-maintained without erosions or surrounding sclerosis. XR/XR sacroiliac joint min 3V IMPRESSION: Normal sacroiliac joints.
[2023-11-20 10:41] LABS: MANUAL DIFF FLAG NO
[2023-11-20 11:06] LABS: Basophils Percent Auto 0.5 % (0-2); Eosinophils Absolute Auto 0.1 X10*3/uL (0.0-0.4); Eosinophils Percent Auto 1.8 % (0-4); Hematocrit 41.7 % (37.0-47.0); Hemoglobin 13.8 g/dl (12.0-16.0); Imm Gran Abs Auto 0.03 X10*3/uL (0.00-0.03); Imm Gran Pct Auto 0.7 % (0.0-0.4); Lymphocytes Absolute Auto 1.8 X10*3/uL (1.2-4.9); Lymphocytes Percent Auto 41.7 % (20-40); Mean Corpuscular HGB Conc 33.1 g/dl (31.0-35.0); Mean Corpuscular Hemoglobin 31.9 pg (27.0-33.0); Mean Corpuscular Volume 96.3 fL (80.0-98.0); Mean Platelet Volume 9.5 fL (9.4-12.3); Monocytes Absolute Auto 0.3 X10*3/uL (0.1-1.2); Monocytes Percent Auto 7.8 % (2-11); Neutrophils Absolute Auto 2.1 x10*3/uL (2.0-8.3); Neutrophils Percent Auto 47.5 % (45-73); Platelet Count 269 X10*3/uL (160-400); Red Blood Count 4.33 X10*6/uL (4.20-5.50); Red Cell Distribution Width 12.3 % (11.0-16.0); White Blood Count 4.3 X10*3/uL (4.8-10.8)
[2023-11-20 11:17] LABS: Estimated Average Glucose 100 mg/dL; Hemoglobin A1c % 5.1 % (<6.0)
[2023-11-20 12:04] LABS: Erythrocyte Sedimentation Rate 7 MM/HR (0-20)
[2023-11-20 12:17] LABS: Rheumatoid Factor < 13.0 IU/mL (<15.0)
[2023-11-20 12:25] LABS: Alanine Aminotransferase 15 U/L (0-31); Albumin Level 4.2 g/dL (3.5-5.0); Alkaline Phosphatase 58 U/L (39-117); Anion Gap 13 (12-20); Aspartate Amino Transferase 15 U/L (5-31); Bilirubin Total 0.5 mg/dL (0.0-1.0); Blood Urea Nitrogen 15 mg/dL (9-16); C Reactive Protein 0.23 mg/dL (< or = 0.50); Calcium 9.6 mg/dL (8.4-10.2); Carbon Dioxide 27 mmol/L (22-29); Chloride 105 mmol/L (96-108); Cholesterol 241 mg/dL (<200); Estimated Glomerular Filt Rate > 60; Glucose Random 91 mg/dL (60-115); HDL Cholesterol 69 mg/dL (>40); Iron 153 mcg/dL (30-160); LDL Cholesterol Calculated 144 mg/dL (<100); Percent Iron Saturation 49 % (15-50); Sodium 141 mmol/L (135-145); Total Iron Binding Capacity 312 mcg/dL (228-428); Total Protein 6.8 g/dL (6.5-8.0); Triglycerides 141 mg/dL (<150); Unsaturated Iron Binding 159 ug/dL
[2023-11-20 12:43] LABS: Ferritin 36 ng/mL (10-250); Insulin 6 uU/mL (2-29); TSH reflex Free T4 1.58 uIU/mL (0.32-4.0); Vitamin D 25-OH Total 32.1 ng/mL (>30)
[2023-11-20 12:46] LABS: Folate 11.2 ng/mL (> or = 4.0); Vitamin B12 647 pg/mL (200-900)
[2023-11-22 14:14] LABS: Cyclic Citrullinated Peptide <16 UNITS
[2023-11-23 16:42] LABS: Vitamin A 55 mcg/dL (38-98)
[2023-11-25 15:59] LABS: Zinc 70 mcg/dL (60-130)
[2023-11-26 07:38] LABS: HLA B27 Positive (Negative)
[2023-11-26 16:03] LABS: Vitamin B1 22 nmol/L (8-30)
== END 2023-11-20 10:26 | disposition home or self-care (01) ==
LOC: HO.LAB 10:25
PROVIDERS: Absent Provider Physician Assistant Surgical; PCP Internal Medicine; Visit Provider Student in an Organized Health Care Education/Training Program
DX: E66.9 Obesity, unspecified (principal); E55.9 Vitamin D deficiency, unspecified; M54.50 Low back pain, unspecified; G89.29 Other chronic pain; M25.40 Effusion, unspecified joint; M45.9 Ankylosing spondylitis of unspecified sites in spine; Z98.84 Bariatric surgery status
CPT/HCPCS: 36415; 72202; 73610; 80053; 80061; 82306; 82607; 82728; 82746; 83036; 83525; 83540; 84425; 84443; 84590; 84630; 85025; 85652; 86140; 86200; 86431; 86812

== ENCOUNTER 2023-11-27 09:45 | Outpatient (AMB) | payer OTHER, SELFPAY ==
[2023-11-27 09:53] VITALS: BP 116/80; PULSE 90; TEMP 36.8; O2SAT 98; BMI 37.5
--- NOTE | 2023-11-27 09:53 | MHC.OFFVIS ---
Intake Vital Signs 11/27/23 09:53 Height 5 ft 7 in Weight 239 lb 6.752 oz BMI 37.5 BP 116/80 Blood Pressure Location Rt brachial Position Sitting Pulse 90 Pulse Source Pulse Oximeter Temp 98.2 F Temp Source Tympanic Pulse Oximetry (%) 98 Oxygen Delivery Method Room Air Intake Visit Reasons: LBP Allergies sertraline [SERTRALINE] Allergy (Unknown, Verified 11/27/23 09:56) SLOWED BREATHING bupropion [From Wellbutrin] Adverse Reaction (Verified 11/27/23 09:56) Depression Medication List - Last Reconciled 11/27/23 by Maverick Colon MD diazepam 2.5 mg PO DAILY PRN metoprolol succinate ER 12.5 mg PO DAILY multivitamin 1 tab PO DAILY oxycodone-acetaminophen 5-325 mg (Percocet) 1 tab PO Q6H PRN HPI HPI Comments History of Present Illness Details Patient returns for follow-up after completion of her diagnostic workup. States that the abrupt onset of pain in her right ankle has improved as she has been trying to stay off her feet recently. Initial history: This is a 53-year-old female who presents for evaluation of ankylosing spondylitis. Patient states that she has had degenerative disc disease of her spine for many years. She was in an accident in her 20s and she was found to have degenerative disc disease in her L-spine. In her 30s she had L-spine surgery. Since then she has had chronic low back pain. She received multiple steroid injections in her spine, she states that they stopped helping. Most recently a spinal cord stimulator was suggested and patient declined. She states that the diagnosis of ankylosing spondylitis was always in her records but she does not recall ever getting seen by a global human resources director or taking DMARDs regularly. She is unaware of any family history of an autoimmune rheumatic disease. She states that she continues to have chronic low back pain that radiates down her lower extremities. She has a torn meniscus in her left knee and did an arthroscopic procedure years ago and she does have significant arthritis affecting her left knee. She has been using a cane for a few years now. Recently she has been having right ankle pain that happens at night, the pain is sharp and abrupt. It happens on the days that she had been more active. Does not recall whether there was any specific swelling. Recently she has been having headaches that last 3-4 days. They start in her lower back and travel up her spine into her head. She denies any rashes. She denies any history of psoriasis or family history of an autoimmune rheumatic disease. Of note patient had portal vein thrombosis in fall of 2021 after a bariatric procedure, she was found to be heterozygous for factor 5 Leiden and positive for lupus anticoagulant. She did get evaluated by Hematology and took Eliquis [facility] Medical History Acute viral syndrome NIK (obstructive sleep apnea) Binge eating disorder DJD (degenerative joint disease) Stress incontinence PTSD (post-traumatic stress disorder) Anxiety Depression Nephrolithiasis Prediabetes Hyperlipidemia GERD (gastroesophageal reflux disease) Tachycardia Hypertension Morbid obesity History of deviated nasal septum Surgical History Hx of colonoscopy S/P gastric sleeve procedure Hx of arthroscopic knee surgery Hx of prior ablation treatment Hx of spinal surgery Family History Mother Depression Ovarian cancer in remission Hypertension Ovarian cancer Father Spine pain Deep vein thrombosis Seizure Hypertension Brother Migraines Son Obesity Son No problems noted. Maternal Grandmother Intestinal cancer Maternal Grandfather Colorectal cancer Maternal Aunt Breast cancer Ovarian cancer Maternal Aunt Ovarian cancer Maternal Aunt Ovarian cancer Social History Household Members: Significant Other, Family and Children Housing: House Are you a primary care technician to a significant other at home: No Do you presently have visiting nurse or other home services: No Alcohol intake: never Comment: ED Overflow Patient Tobacco Use Status: Former Tobacco user Quit Date: 10 yrs ago Tobacco use type: Cigarette service: No Current occupational status: unemployed Review of Systems [facility] [place] Reports back pain and Reports arthralgias Physical Exam Vital Signs: Last Vital Signs Temp 98.2 F 11/27/23 09:53 Pulse 90 11/27/23 09:53 BP 116/80 11/27/23 09:53 Pulse Ox 98 11/27/23 09:53 Oxygen Delivery Method Room Air 11/27/23 09:53 BMI result Body Mass Index 37.5 Const General: cooperative, healthy appearing and comfortable Nutritional Appearance: obese morbidly obese Orientation/consciousness: patient oriented x3 Limitations: ambulation with cane HEENT Head: Yes normocephalic and Yes atraumatic Resp Effort & Inspection: normal respiratory effort and able to speak in complete sentences Cardio Rate: regular rate Neuro General: patient oriented x3 Extrem Other: Mild osteoarthritic changes of both hands with no active synovitis Assessment & Plan Assessment & Plan (1) Chronic lower back pain: Code(s): M54.50 - Low back pain, unspecified; G89.29 - Other chronic pain Qualifiers: Back pain laterality: bilateral Sciatica presence: with sciatica Sciatica laterality: bilateral sciatica Qualified Code(s): M54.42 - Lumbago with sciatica, left side; M54.41 - Lumbago with sciatica, right side; G89.29 - Other chronic pain Plan: This is a 53-year-old female who presents for evaluation of ankylosing spondylitis patient has had chronic degenerative disc disease of her L-spine since her 20s and had L-spine surgery in her 30s, and received multiple steroid injections. She states that ankylosing spondylitis was in her chart. She does not believe that she followed up regularly with a global human resources director and received a DMARD. Bilateral SI joint x-rays do not show sacroiliitis. Clinical picture is consistent with degenerative disc disease. Her labs show positive HLA B27. She has no features suggestive of an autoimmune rheumatic disease. No history of uveitis. Discussed with patient that HLA B27 positivity is seen in about 8% of the white population and does not carry any significant implications in her case. Follow-up p.r.n. Plan I spent 17 minutes reviewing patient's chart, evaluating patient, counseling patient and documenting in the chart Coding Level of Care Code Est Pt Level 3 (84965) Diagnoses Chronic bilateral low back pain with bilateral sciatica M54.42; M54.41; G89.29 Back pain laterality: bilateral Sciatica presence: with sciatica Sciatica laterality: bilateral sciatica
== END 2023-11-27 10:15 | disposition home or self-care (01) ==
LOC: HO.RHE 09:46
PROVIDERS: PCP Internal Medicine; Visit Provider Student in an Organized Health Care Education/Training Program
DX: M54.42 Lumbago with sciatica, left side (principal); M54.41 Lumbago with sciatica, right side; G89.29 Other chronic pain
CPT/HCPCS: 99213

== ENCOUNTER → 2023-11-27 09:45 | Outpatient (BNVA) | payer OTHER, SELFPAY | PROVIDERS: PCP Internal Medicine; Visit Provider Student in an Organized Health Care Education/Training Program | DX: M54.42 Lumbago with sciatica, left side (principal); M54.41 Lumbago with sciatica, right side; G89.29 Other chronic pain | CPT/HCPCS: 99212 ==

== ENCOUNTER 2023-12-02 14:01 | Outpatient (AMB) | payer OTHER, SELFPAY ==
--- NOTE | 2023-12-02 08:49 | A.OFFVIS_ITS ---
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 Presents for 1 year 4 month post op visit. Weight today is 234.2 pounds, with a BMI of 36.7.? There has been a 58.8 pound weight loss,(initial weight 293 pounds) since starting the program on 01/19/22 reflecting a 20% total body weight loss and a weight loss of 37 pounds since surgery (operative weight 271.2 pounds) reflecting a 13.6% TBWL since surgery.? She developed a portal vein thrombosis post operatively requiring several days of hospital admission and then transition to NOAC, Eliquis.? She continues to be followed by Dr Teague (heme/onc) for hypercoaguable w/u.?Last seen by Heme/Onc 07/23/23 and she is now off of Eliquis and has had no further significant pain in her right upper quadrant of her abdomen. She has been checking to see if she can get some discount to Location so she can use the pool. She is also looking into the [facility] to have access to the pool. She has began to experience bilateral lateral ankle pain at night. This was painful but now improved. She saw Rheumatology and w/u was not significant for autoimmune disease. This has significantly limited her exercise capacity in that she continues to try as much as she is able but is somewhat limited by her pains both in the ankles and joints as well as her tailbone. She is also looking into possible injection or surgery with [facility] for her worsening knee pain. She additionally endorses switching to [facility] lean protein powder as well as a coconut almond blend low calorie milk. She switched back to Celebrate 4 in 1 shake product meal plan includes: shake celebrate 4 in 1, 1 scoop, in 8 oz unsweetened coconut milk 830-1030am another shake 1 scoop in 8 oz coconut milk, 1-2 pm 1/2 atkins bar meal 6 pm, 8-10 forks protein and 8-10 forks veg drinking 60 oz water ? Exercise routine includes: minimal due to knee pain PFSH Medical History Acute viral syndrome NIK (obstructive sleep apnea) Binge eating disorder DJD (degenerative joint disease) Stress incontinence PTSD (post-traumatic stress disorder) Anxiety Depression Nephrolithiasis Prediabetes Hyperlipidemia GERD (gastroesophageal reflux disease) Tachycardia Hypertension Morbid obesity History of deviated nasal septum Surgical History Hx of colonoscopy S/P gastric sleeve procedure Hx of arthroscopic knee surgery Hx of prior ablation treatment Hx of spinal surgery Family History Mother Depression Ovarian cancer in remission Hypertension Ovarian cancer Father Spine pain Deep vein thrombosis Seizure Hypertension Brother Migraines Son Obesity Son No problems noted. Maternal Grandmother Intestinal cancer Maternal Grandfather Colorectal cancer Maternal Aunt Breast cancer Ovarian cancer Maternal Aunt Ovarian cancer Maternal Aunt Ovarian cancer Social History Household Members: Significant Other, Family and Children Housing: House Are you a primary career development coordinator to a significant other at home: No Do you presently have visiting nurse or other home services: No Alcohol intake: never Comment: ED Overflow Patient Tobacco Use Status: Former Tobacco user Quit Date: 10 yrs ago Tobacco use type: Cigarette service: No Current occupational status: unemployed Assessment & Plan Assessment & Plan (1) Obesity (BMI 30-39.9): Code(s): E66.9 - Obesity, unspecified Plan: The patient is trying to do the best that she can. She is attempting to get access to a pool at [facility] or [employer]. The exercise component is lacking in her overall plan but this is due to her arthritis in her knee and low back. Recommendation is to have 2 shakes with 2 scoops each of the celebrate 4 in 1 which she transition to of her own accord and 8 forks of protein and 8 of vegetables for her meal. We will have her return to the office in approximately 2 months with the understanding that she will text with any questions or concerns Telehealth Telehealth Location of provider rendering services: practice address Location of patient: address on file Patient Identification confirmed using: Name, : Yes Telehealth method: voice only Patient verbally consented to treatment: Yes Patient verbally consented to billing insurance company: Yes Patient informed of any privacy concerns related to visit: Yes Minutes spent on Phone/Video with Pt.: 20 Coding Level of Care Code Tele Est Pt Level 3 (86830) Diagnoses Obesity (BMI 30-39.9) E66.9 Time Spent (min) 25
[2023-12-02 08:50] VITALS: BMI 36.7
== END 2023-12-02 14:31 | disposition home or self-care (01) ==
LOC: HO.HBS 14:01
PROVIDERS: PCP Internal Medicine; Visit Provider Physician Assistant Surgical
DX: E66.9 Obesity, unspecified (principal)
CPT/HCPCS: 99213

== ENCOUNTER → 2023-12-02 14:01 | Outpatient (BNVA) | payer OTHER, SELFPAY | PROVIDERS: PCP Internal Medicine; Visit Provider Physician Assistant Surgical ==

== ENCOUNTER 2024-02-18 08:28 | Outpatient (REF) | payer OTHER, SELFPAY ==
--- NOTE | ~2024-02-18 | US_ITS ---
EXAMINATION: US ABDOMEN COMPLETE CLINICAL INFORMATION: Follow up portal vein thrombus. COMPARISON: Arterial duplex 02/28/[address] abdomen and pelvis with contrast 05/29/2023. TECHNIQUE: Real-time imaging of the abdominal viscera. Abdominal Doppler was also performed. FINDINGS: PANCREAS: Normal. ABDOMINAL AORTA: The proximal, mid, and distal segments are normal in caliber. INFERIOR VENA CAVA: Visualized portions are normal. LIVER: The liver is enlarged at 22.2 cm. The liver contour is normal. There is diffuse increased liver parenchymal echogenicity, consistent with hepatic steatosis. No focal hepatic lesion. There is no intrahepatic biliary duct dilatation seen. VASCULATURE: There is hepatopedal flow is seen in patent extrahepatic portal vein, main portal vein as well as right and left portal veins. No portal vein thrombosis The hepatic veins are all patent and normal in appearance as is the IVC. Hepatic artery demonstrates normal antegrade flow. GALLBLADDER: The gallbladder is physiologically distended without evidence of stones, sludge, polyps, wall thickening or pericholecystic fluid. COMMON BILE DUCT: Normal in caliber measuring 0.3 cm in diameter. RIGHT KIDNEY: No hydronephrosis. No renal calculi or focal parenchymal lesions. The kidney measures 11.6 cm in maximum dimension. LEFT KIDNEY: No hydronephrosis. No renal calculi or focal parenchymal lesions. The kidney measures 11.9 cm in maximum dimension. SPLEEN: Normal. The spleen measures 11.8 cm in maximum dimension. FREE FLUID: None. US/US duplex arterial venous comp IMPRESSION: 1. Enlarged fatty liver. 2. No evidence of portal vein thrombosis.
--- NOTE | ~2024-02-18 | US_ITS ---
EXAMINATION: US ABDOMEN COMPLETE CLINICAL INFORMATION: Follow up portal vein thrombus. COMPARISON: Arterial duplex 02/28/[address] abdomen and pelvis with contrast 05/29/2023. TECHNIQUE: Real-time imaging of the abdominal viscera. Abdominal Doppler was also performed. FINDINGS: PANCREAS: Normal. ABDOMINAL AORTA: The proximal, mid, and distal segments are normal in caliber. INFERIOR VENA CAVA: Visualized portions are normal. LIVER: The liver is enlarged at 22.2 cm. The liver contour is normal. There is diffuse increased liver parenchymal echogenicity, consistent with hepatic steatosis. No focal hepatic lesion. There is no intrahepatic biliary duct dilatation seen. VASCULATURE: There is hepatopedal flow is seen in patent extrahepatic portal vein, main portal vein as well as right and left portal veins. No portal vein thrombosis The hepatic veins are all patent and normal in appearance as is the IVC. Hepatic artery demonstrates normal antegrade flow. GALLBLADDER: The gallbladder is physiologically distended without evidence of stones, sludge, polyps, wall thickening or pericholecystic fluid. COMMON BILE DUCT: Normal in caliber measuring 0.3 cm in diameter. RIGHT KIDNEY: No hydronephrosis. No renal calculi or focal parenchymal lesions. The kidney measures 11.6 cm in maximum dimension. LEFT KIDNEY: No hydronephrosis. No renal calculi or focal parenchymal lesions. The kidney measures 11.9 cm in maximum dimension. SPLEEN: Normal. The spleen measures 11.8 cm in maximum dimension. FREE FLUID: None. US/US abdomen complete IMPRESSION: 1. Enlarged fatty liver. 2. No evidence of portal vein thrombosis.
== END 2024-02-18 08:29 | disposition home or self-care (01) ==
LOC: HO.US 08:28
PROVIDERS: PCP Internal Medicine; Visit Provider Internal Medicine Medical Oncology
DX: K76.0 Fatty (change of) liver, not elsewhere classified (principal)
CPT/HCPCS: 76700; 93975

== ENCOUNTER 2024-05-22 12:08 | Emergency (ER) | payer MEDICARE, MEDICAID, SELFPAY ==
--- NOTE | ~2024-05-22 | US_ITS ---
EXAMINATION: US VENOUS ULTRASOUND WITH DOPPLER LOWER EXTREMITY, RIGHT CLINICAL INFORMATION: Right thigh heaviness/swelling. COMPARISON: 08/21/2022 TECHNIQUE: Ultrasound of the deep veins is performed from the hip to the calf with compression sonography and color and pulse Doppler assessment. Spectral analysis with color-flow imaging is performed. FINDINGS: There is normal venous compression and respiratory variation and augmented flow. The visualized common femoral vein, superficial femoral vein, profunda femoral vein, popliteal vein, and the trifurcation region shows no evidence of deep venous thrombosis. If the patient's symptoms persist, followup ultrasound in 5 days 7 days might be of value to exclude proximal propagation from a non-visualized calf vein. US/US venous duplex LE RT IMPRESSION: No DVT demonstrated in the right lower extremity.
[2024-05-22 12:17] VITALS: BP 168/96; PULSE 97; RESP 18; TEMP 37.1; O2SAT 98; BMI 40.8
--- NOTE | 2024-05-22 12:19 | ED_ITS ---
HPI - General Adult General Chief complaint: Extremity Problem Stated complaint: possible blood clot in leg Time Seen by Provider: 05/22/24 13:53 Source: patient Mode of arrival: ambulatory Limitations: no limitations History of Present Illness HPI narrative: Patient is a 53-year-old female presents emergency department for evaluation of swelling to her right distal thigh. She reports notable onset yesterday, day prior she had taken a hour car ride. She admits to a history of portal vein thrombosis, she was concern that she may have a blood clot. She took some leftover Eliquis; 2 doses just in case. She called her primary care doctor who advised her to come to the emergency department for evaluation. Evidently her PCP told her that if a blood clot was in the leg, it could travel to the lungs and it would be over she then developed shortness of breath as she was feeling very anxious at that time. She admits to a history of venous insufficiency and it is not uncommon for her to get swelling of her lower extremities. She denies any numbness or tingling to the extremity. She denies any pain, pain with range of motion to the right knee. Denies any redness, warmth, fevers, chills. Related Data Home Medications ?Medication ?Instructions ?Recorded ?Confirmed oxycodone-acetaminophen 5 mg-325 1 tab PO Q6H PRN Pain 01/19/22 01/22/24 mg tablet (Percocet) diazepam 5 mg tablet 2.5 mg PO DAILY PRN anxiety 05/29/22 01/22/24 metoprolol succinate 25 mg 12.5 mg PO DAILY 05/20/23 01/22/24 tablet,extended release 24 hr multivitamin 1 tab PO DAILY 10/25/23 01/22/24 Allergies Allergy/AdvReac Type Severity Reaction Status Date / Time sertraline [SERTRALINE] Allergy Unknown SLOWED Verified 05/22/24 12:25 BREATHING bupropion [From Wellbutrin] AdvReac Depression Verified 05/22/24 12:25 Review of Systems 2 Review of Systems: Yes all other systems are reviewed and are negative [facility] Past Medical History Attestation statement: The following information was validated with the patient. Source: old records reviewed Medical History Acute viral syndrome NIK (obstructive sleep apnea) Binge eating disorder DJD (degenerative joint disease) Stress incontinence PTSD (post-traumatic stress disorder) Anxiety Depression Nephrolithiasis Prediabetes Hyperlipidemia GERD (gastroesophageal reflux disease) Tachycardia Hypertension Morbid obesity History of deviated nasal septum Surgical History Hx of colonoscopy S/P gastric sleeve procedure Hx of arthroscopic knee surgery Hx of prior ablation treatment Hx of spinal surgery Family History Family History Mother Depression Ovarian cancer in remission Hypertension Ovarian cancer Father Spine pain Deep vein thrombosis Seizure Hypertension Brother Migraines Son Obesity Son No problems noted. Maternal Grandmother Intestinal cancer Maternal Grandfather Colorectal cancer Maternal Aunt Breast cancer Ovarian cancer Maternal Aunt Ovarian cancer Maternal Aunt Ovarian cancer Social History Social History Household Members: Significant Other, Family and Children Housing: House Are you a primary respiratory care practitioner to a significant other at home: No Do you presently have visiting nurse or other home services: No Alcohol intake: never Comment: ED Overflow Patient Tobacco Use Status: Former Tobacco user Tobacco use type: Cigarette Advance Directives: No Advance Directives Information Provided: Yes Do you have a plan to hurt others: No Plan service: No Current occupational status: unemployed Physical Exam ED Vital Signs: Vital Signs - 24 hr 05/22/24 12:17 Temperature 98.8 F Pulse Rate 97 Respiratory Rate 18 Blood Pressure 168/96 H Pulse Oximetry 98 BMI result Body Mass Index 40.8 Appearance: Alert.?Oriented to person, place and time. No acute distress.?Normal affect. Eyes: Pupils equal, round and reactive to light.? ENT: Pharynx normal.?? Neck: Normal inspection.? Neck supple.?? CVS: Heart sounds normal. Normal heart rate and rhythm.? Pulses normal.?? Respiratory: No respiratory distress.? Lung sounds clear to auscultation bilaterally?? Abdomen: Soft and non-tender. Normoactive bowel sounds. ? Skin: Skin warm and dry.? Normal skin color.? Normal skin turgor. Rashes or lesions. No erythema or warmth.?? Extremities: No lower extremity edema.? No calf ttp. 2+ DP/PT pulse bilaterally. Has localized swelling to the supra patellar region on the right/distal thigh. No palpable deformities, muscular strength is intact. No erythema or warmth ? Neuro: Moves all extremities spontaneously. Sensation intact bilaterally. CN II- XII intact. No focal neuro deficits. Ambulates with normal steady gait. Course Course Course Narrative: This is a Rapid Medical Examination (RME) performed by Deshawn Stern PA-C in triage. Full HPI, ROS, assessment and treatment plan per primary provider in the Main ED. 53 yo female hx of binge eating disorder, depression, PTSD, degenerative disc disease, hyperlipidemia, prediabetes, GERD, hypertension, morbid obesity, portal vein thrombosis (Dr. Teague d/britney Moore 1 yr ago) here for eval of RLE swelling. Admits to being the passenger in a 3 hour car ride 3 days ago. reports developing swelling to mid right thigh to mid right yesterday. Reports heavy sensation. Denies pain. Admits to taking 1 dose of Eliquis yesterday 2nd this morning at 3:00 a.m.. denies chest pain however reports assoc SOB related to anxiety surrounding the situation. reports her father passed from a blood clot. + noted swelling to right thigh/knee when compared to LLE. no overlying erythema. no calf tenderness. Plan: ekg, labs, coags, venous duplex RLE Medical Decision Making Medical Decision Making [facility] Narrative: She is ambulatory with a steady gait, extremity is neurovascularly intact distally. She has mild localized swelling to the right suprapatellar region/distal thigh comparison to the left, there is however no signs of cellulitis, no palpable deformities or trauma/injury that would suggest a quadricep rupture or tear, her muscular strength is intact. Venous duplex ultrasound was obtained and is without evidence of DVT, no evidence of superficial thrombophlebitis. On review of her labs, CBC is without leukocytosis anemia or thrombocytopenia. Coags within normal range. No overt electrolyte derangement, no ILDA, LFTs within normal range, BNP is normal. We discussed conservative treatment including rest, compression, elevation, outpatient follow-up with primary care provider. All questions were answered. Reviewed worrisome signs and symptoms that would warrant re-evaluation in the emergency department. Stable for discharge. Differential Diagnosis Differential Diagnoses: The differential diagnosis associated with the presentation includes (See narrative above) Admission/Observation Consideration of admission/observation: Escalation of care including admission/observation considered Lab Data MDM Lab Attestation statement: I reviewed the patient's lab results. (See narrative above) 05/22/24 12:38 05/22/24 12:38 Labs: Lab Results 05/22/24 Range/Units 12:38 WBC 5.3 (4.8-10.8) X10*3/uL RBC 4.31 (4.20-5.50) X10*6/uL Hgb 13.9 (12.0-16.0) g/dl Hct 41.3 (37.0-47.0) % MCV 95.8 (80.0-98.0) fL MCH 32.3 (27.0-33.0) pg MCHC 33.7 (31.0-35.0) g/dl RDW 12.3 (11.0-16.0) % Plt Count 245 (160-400) X10*3/uL MPV 9.2 L (9.4-12.3) fL Immature Gran % (Auto) 0.6 H (0.0-0.4) % Neut % (Auto) 53.2 (45-73) % Lymph % (Auto) 34.4 (20-40) % [place] % (Auto) 9.3 (2-11) % Eos % (Auto) 1.9 (0-4) % Baso % (Auto) 0.6 (0-2) % Lymph # (Auto) 1.8 (1.2-4.9) X10*3/uL [place] # (Auto) 0.5 (0.1-1.2) X10*3/uL Eos # (Auto) 0.1 (0.0-0.4) X10*3/uL Baso # (Auto) 0.0 (0.0-0.2) X10*3/uL Abs Immat Gran (auto) 0.03 (0.00-0.03) X10*3/uL Absolute Neuts (auto) 2.8 (2.0-8.3) x10*3/uL Absolute Nucleated RBC 0.000 (0.0-0.012) X10*3/uL Nucleated RBC % (auto) 0.0 (0.0-0.2) /100WBC PT 11.9 (11.1-13.3) SEC INR 1.0 (0.9-1.1) APTT 33.4 (26.0-36.8) SEC Sodium 143 (135-145) mmol/L Potassium 4.2 (3.3-5.1) mmol/L Chloride 109 H (96-108) mmol/L Carbon Dioxide 25 (22-29) mmol/L Anion Gap 13 (12-20) BUN 11 (9-16) mg/dL Creatinine 0.74 (0.5-1.4) mg/dL Estim Creat Clear Calc 114.2 Estimated GFR > 60 Random Glucose 102 (60-115) mg/dL Calcium 9.3 (8.4-10.2) mg/dL Magnesium 2.1 (1.6-2.6) mg/dL Total Bilirubin 0.3 (0.0-1.0) mg/dL AST 16 (5-31) U/L ALT 14 (0-31) U/L Alkaline Phosphatase 68 (39-117) U/L B-Natriuretic Peptide 17 (<100) pg/mL Total Protein 7.0 (6.5-8.0) g/dL Albumin 4.4 (3.5-5.0) g/dL Independent Interpretation I performed an independent interpretation of an: EKG Interpretation: Rate: 62 Rhythm:? Normal sinus rhythm [place]:? Normal Normal P waves.? Normal LORE.?? Normal QRS complex.?? ST T wave :??No ST elevation, ST depression qTC: 435 prior studies:? July 2022 The study has been interpreted contemporaneously by me. Radiology Impression Discussion of test interpretation with radiology: I have reviewed the radiologist's reading. Radiologist Impression: US/US venous duplex LE RT IMPRESSION: No DVT demonstrated in the right lower extremity. Independent Historian Clinical information obtained from an independent historian. History obtained from or confirmed by: Spouse External Record Review External record reviewed: Outpatient record Prescription Management I considered prescription management with: Pain Medication (Acetaminophen/ibuprofen) Discharge Plan Discharge Clinical Impression: Edema of right lower extremity Patient Disposition: Home, Self-Care Instructions: Leg Edema (ED) Additional Instructions: Be sure to rest over the next few days, use her stockings for compression, elevate your leg above the level of your chest. Follow-up with your primary care provider. You may return back to emergency department any new or worsening symptoms or concerns. Prescriptions: No Action oxycodone-acetaminophen [Percocet] 5-325 mg tablet 1 tab PO Q6H PRN (Reason: Pain) diazepam 5 mg tablet 2.5 mg PO DAILY PRN (Reason: anxiety) multivitamin Tablet 1 tab PO DAILY metoprolol succinate 25 mg tablet extended release 24 hr 12.5 mg PO DAILY Referrals: Gin Amaro MD [Primary Care Provider] - Print Language: Hungarian
--- NOTE | 2024-05-22 12:24 | ECG_ITS ---
Test Reason : anxiety Blood Pressure : / mmHG Vent. Rate : 063 BPM Atrial Rate : 063 BPM P-R Int : 148 ms QRS Dur : 086 ms QT Int : 426 ms P-R-T Axes : 037 046 037 degrees QTc Int : 435 ms Normal sinus rhythm Normal ECG When compared with ECG of 03-AUG-2022 17:41, No significant change was found Referred By: Marlene Stern Electronically Signed By:YONI REYNOSO
[2024-05-22 12:42] LABS: MANUAL DIFF FLAG NO
[2024-05-22 12:44] LABS: Basophils Percent Auto 0.6 % (0-2); Eosinophils Absolute Auto 0.1 X10*3/uL (0.0-0.4); Eosinophils Percent Auto 1.9 % (0-4); Hematocrit 41.3 % (37.0-47.0); Hemoglobin 13.9 g/dl (12.0-16.0); Imm Gran Abs Auto 0.03 X10*3/uL (0.00-0.03); Imm Gran Pct Auto 0.6 % (0.0-0.4); Lymphocytes Absolute Auto 1.8 X10*3/uL (1.2-4.9); Lymphocytes Percent Auto 34.4 % (20-40); Mean Corpuscular HGB Conc 33.7 g/dl (31.0-35.0); Mean Corpuscular Hemoglobin 32.3 pg (27.0-33.0); Mean Corpuscular Volume 95.8 fL (80.0-98.0); Mean Platelet Volume 9.2 fL (9.4-12.3); Monocytes Absolute Auto 0.5 X10*3/uL (0.1-1.2); Monocytes Percent Auto 9.3 % (2-11); Neutrophils Absolute Auto 2.8 x10*3/uL (2.0-8.3); Neutrophils Percent Auto 53.2 % (45-73); Platelet Count 245 X10*3/uL (160-400); Red Blood Count 4.31 X10*6/uL (4.20-5.50); Red Cell Distribution Width 12.3 % (11.0-16.0); White Blood Count 5.3 X10*3/uL (4.8-10.8)
[2024-05-22 12:57] LABS: Prothrombin Time 11.9 SEC (11.1-13.3)
[2024-05-22 13:00] LABS: Partial Thromboplastin Time 33.4 SEC (26.0-36.8)
[2024-05-22 13:02] LABS: Alanine Aminotransferase 14 U/L (0-31); Albumin Level 4.4 g/dL (3.5-5.0); Alkaline Phosphatase 68 U/L (39-117); Anion Gap 13 (12-20); Aspartate Amino Transferase 16 U/L (5-31); Bilirubin Total 0.3 mg/dL (0.0-1.0); Blood Urea Nitrogen 11 mg/dL (9-16); Calcium 9.3 mg/dL (8.4-10.2); Carbon Dioxide 25 mmol/L (22-29); Chloride 109 mmol/L (96-108); Creatinine Clr Calc Pharmacy 114.2; Estimated Glomerular Filt Rate > 60; Glucose Random 102 mg/dL (60-115); Magnesium 2.1 mg/dL (1.6-2.6); Potassium 4.2 mmol/L (3.3-5.1); Sodium 143 mmol/L (135-145)
[2024-05-22 13:07] LABS: B Type Natriuretic Peptide 17 pg/mL (<100)
[2024-05-22 15:13] VITALS: BP 168/96; PULSE 97; RESP 18; TEMP 37.1; O2SAT 98
== END 2024-05-22 15:13 | disposition home or self-care (01) ==
PROVIDERS: Physician Assistant Medical; Emergency Provider Emergency Medicine; PCP Internal Medicine
DX: R60.0 Localized edema (principal); M79.604 Pain in right leg; R06.02 Shortness of breath; E78.5 Hyperlipidemia, unspecified; I10 Essential (primary) hypertension; F41.9 Anxiety disorder, unspecified; Z87.891 Personal history of nicotine dependence
CPT/HCPCS: 36415; 80053; 83735; 83880; 85025; 85610; 85730; 93005; 93971; 99283; 99284

== ENCOUNTER → 2024-05-22 12:24 | Outpatient (BNV) | payer MEDICARE, MEDICAID, SELFPAY | PROVIDERS: Emergency Provider Emergency Medicine; PCP Internal Medicine; Visit Provider Internal Medicine | DX: F41.9 Anxiety disorder, unspecified (principal) | CPT/HCPCS: 93010 ==

== ENCOUNTER 2024-08-28 09:37 | Outpatient (REF) | payer MEDICARE, MEDICAID, SELFPAY ==
--- NOTE | ~2024-08-28 | US_ITS ---
EXAMINATION: US ABDOMEN COMPLETE CLINICAL INFORMATION: Follow portal vein thrombosis.. COMPARISON: Ultrasound dated February 18, 2024. TECHNIQUE: Real-time ultrasound of the abdomen using grayscale and color Doppler technique. FINDINGS: PANCREAS: No peripancreatic fluid collections. ABDOMINAL AORTA: The proximal, mid, and distal segments demonstrated normal caliber. INFERIOR VENA CAVA: Normal flow within the lumen. LIVER: Liver measures 23 cm. There is coarse echotexture. No solid or cystic lesion. Main portal vein and its main branches are patent with normal hepatopedal flow direction. No intrahepatic biliary ductal dilatation. The interrogated hepatic veins are patent with normal hepatofugal flow direction. Main hepatic artery is patent. Peak systolic velocity: 114 cm/s. End-diastolic velocity: 25 cm/s. GALLBLADDER: Fluid-filled. No pericholecystic fluid collection or gallbladder wall thickening. COMMON BILE DUCT: Measures 3 mm.. RIGHT KIDNEY: Normal morphology and echotexture. Normal renal cortical medullary junction. No hydronephrosis. No gross solid or cystic lesion. The kidney measures 11 cm in maximum dimension. LEFT KIDNEY: Normal fallopian echotexture. No gross solid or cystic lesion. Normal renal cortical medullary junction. No hydronephrosis... The kidney measures 11 cm in maximum dimension. SPLEEN: No solid or cystic lesion. The spleen measures 12 cm in maximum dimension. Normal patency and flow direction of the interrogated splenic vessels. FREE FLUID: None. US/US abdomen complete IMPRESSION: Normal patency and flow direction of the interrogated vessels. No ascites. Hepatomegaly and up to normal limits spleen. No cholelithiasis. No hydronephrosis.. Electronically signed by: Lawrence Allen MD 08/28/2024 03:03 PM EDT
--- NOTE | ~2024-08-28 | US_ITS ---
EXAMINATION: US ABDOMEN DOPPLER CLINICAL INFORMATION: Portal vein thrombosis COMPARISON: 02/18/2024 TECHNIQUE: Color and spectral Doppler evaluation of the hepatic vasculature. FINDINGS: SPLENIC VEIN: Patent with normal waveforms. HEPATIC VEINS: Patent with normal waveforms. PORTAL VEINS: Patent with normal waveforms and hepatopetal flow. HEPATIC ARTERIES: Normal upstroke and diastolic flow. INFERIOR VENA CAVA: Patent with normal waveforms. FREE FLUID: None. US/US duplex arterial venous comp IMPRESSION: Normal Doppler evaluation of the hepatic vasculature. Electronically signed by: Christiano Gonsalves MD 09/09/2024 04:55 PM [facility]
== END 2024-08-28 09:38 | disposition home or self-care (01) ==
LOC: HO.HMGCX 09:37
PROVIDERS: PCP Internal Medicine; Visit Provider Internal Medicine Medical Oncology
DX: I81 Portal vein thrombosis (principal)
CPT/HCPCS: 76700; 93975

== ENCOUNTER → 2024-08-28 09:42 | Outpatient (BNV) | payer MEDICARE, MEDICAID, SELFPAY | PROVIDERS: PCP Internal Medicine; Visit Provider Radiology Diagnostic Radiology | DX: I81 Portal vein thrombosis (principal) | CPT/HCPCS: 76700 ==

== ENCOUNTER 2024-09-03 12:29 | Outpatient (REF) | payer MEDICARE, SELFPAY ==
--- NOTE | ~2024-09-03 | CT_ITS ---
EXAMINATION: CT ABDOMEN AND PELVIS WITH CONTRAST CLINICAL INFORMATION: Left upper quadrant abdominal pain. COMPARISON: Multiple priors, most recent abdominal ultrasound dated 08/28/[address] abdomen/pelvis dated 05/29/2023. TECHNIQUE: Multidetector volumetric images were obtained from the superior aspect of the liver through the pubic symphysis following administration 85 mL of Omnipaque 350 intravenous contrast. Sagittal and coronal reformatted images were obtained on the technologist's workstation. Oral contrast: No This CT examination was performed using dose optimization techniques as appropriate, variously including the following: *Automated exposure control *Adjustment of mA and/or kV according to patient size (this includes techniques or standardized protocols for targeted exams where dose is matched to indication/reason for exam; i.e. extremities or head) *Use of iterative reconstruction technique DLP: 805 mGy-cm FINDINGS: LUNG BASES: The visualized lung bases are unremarkable. LIVER, GALLBLADDER, AND BILIARY TREE: The liver is normal in size, shape, and attenuation. Subcentimeter right hepatic hypodensity, unchanged. No new focal hepatic lesion or biliary ductal dilatation is present. The gallbladder is unremarkable with no evidence of radiopaque gallstones, gallbladder wall thickening, or obvious pericholecystic inflammatory changes. PANCREAS: Unremarkable. SPLEEN: Unremarkable. ADRENAL GLANDS: Unremarkable. KIDNEYS AND URETERS: The kidneys are normal in size, shape, and attenuation. No hydronephrosis, hydroureter, or calculi seen. No perinephric stranding. BLADDER: Unremarkable. GASTROINTESTINAL TRACT: Status post sleeve gastrectomy. Small, sliding hiatal hernia, unchanged. Oral contrast reaches the rectum. Sigmoid diverticulosis without evidence of acute diverticulitis. No bowel wall thickening or inflammatory change. No small or large bowel obstruction. Unremarkable appendix. PERITONEAL CAVITY: No intra-abdominal free air or free fluid. No intra-abdominal mass or organized fluid collection/abscess formation. ABDOMINAL WALL: Tiny, fat-containing periumbilical hernia. No inflammatory change or associated bowel loops. LYMPH NODES: No lymphadenopathy. VASCULAR: Unremarkable. PELVIC VISCERA: The uterus and adnexa are unremarkable. OSSEOUS STRUCTURES: Degenerative disc disease redemonstrated within the lower lumbar spine. No acute osseous abnormality. CT/CT abdomen pelvis w IV con IMPRESSION: 1. Status post sleeve gastrectomy. Small, sliding hiatal hernia, unchanged. Diverticulosis without evidence of acute diverticulitis. No small or large bowel obstruction. Unremarkable appendix. 2. No intra-abdominal mass, lymphadenopathy, or ascites. 3. Additional chronic findings are unchanged. Fleischner guidelines were followed. Electronically signed by: Louis Graves MD 09/04/2024 10:51 AM [facility]
[2024-09-03] MEDS: iohexoL 350 MG/ML 100 ML INFUS..BTL IV (16:39)
[2024-09-03] MEDS: Barium Sulfate Oral (Vanilla) 450 ML ORAL.SUSP 900 ML PO (16:40)
== END 2024-09-03 12:30 | disposition home or self-care (01) ==
LOC: HO.CT 12:29
PROVIDERS: PCP Internal Medicine; Visit Provider Internal Medicine Medical Oncology
DX: R10.12 Left upper quadrant pain (principal)
CPT/HCPCS: 74177; Q9967

== ENCOUNTER 2024-09-21 10:34 | Outpatient (AMB) | payer MEDICARE, SELFPAY ==
--- NOTE | 2024-09-21 10:38 | A.OFFVIS_ITS ---
Vital Signs 09/21/24 10:39 Height 5 ft 7 in BMI Reason not done Patient refused/unable BP 111/55 L Blood Pressure Location Lt brachial Position Sitting Pulse 81 Intake Visit Reasons: Stabbing pains Intake Note: Susu presents in the office as a new patient for stabbing pains. CC: Stabbing pains in the abdomen - she states this morning she had some constipation. LUQ pains and one day it was on the lower left quadrant that went away. 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 Reports insiduous onset of sharp stabbing pain in LUQ x 4-6 weeks that is severe enough to wake her up from night. No relation to food or bowel movements that she has noted. It does however get aggaravated by laying down or turning side to side. Describes a popping sensation. Less bothersome when sitting up. No fevers or chills. No changes in appetite. Stools are formed no melena or hematochezia. Has tried peptobismol which did not help. Mat grandfather: esophageal ca and CRC 60s Last colo: [facility] [place] 2022 - hyperplastic polyp. [facility] Medical History Acute viral syndrome NIK (obstructive sleep apnea) Binge eating disorder DJD (degenerative joint disease) Stress incontinence PTSD (post-traumatic stress disorder) Anxiety Depression Nephrolithiasis Prediabetes Hyperlipidemia GERD (gastroesophageal reflux disease) Tachycardia Hypertension Morbid obesity History of deviated nasal septum Surgical History Hx of colonoscopy S/P gastric sleeve procedure Hx of arthroscopic knee surgery Hx of prior ablation treatment Hx of spinal surgery Family History Mother Depression Ovarian cancer in remission Hypertension Ovarian cancer Father Spine pain Deep vein thrombosis Seizure Hypertension Brother Migraines Son Obesity Son No problems noted. Maternal Grandmother Intestinal cancer Maternal Grandfather Colorectal cancer Maternal Aunt Breast cancer Ovarian cancer Maternal Aunt Ovarian cancer Maternal Aunt Ovarian cancer Social History Household Members: Significant Other, Family and Children Housing: House Are you a primary child day care center worker to a significant other at home: No Do you presently have visiting nurse or other home services: No Alcohol intake: never Comment: ED Overflow Patient Tobacco Use Status: Former Tobacco user Tobacco use type: Cigarette service: No Current occupational status: unemployed Review of Systems Const All systems reviewed & are unremarkable except as noted in HPI and below Physical Exam Vital Signs: Last Vital Signs Pulse 81 09/21/24 10:39 BP 111/55 L 09/21/24 10:39 No apparent distress, with obesity Nonicteric Abdomen soft, nondistended, tenderness over L sided subcostal margin with pin point tenderness over lower costosternum Alert and oriented x3, normal gait uses a cane Assessment & Plan Assessment & Plan (1) S/P laparoscopic sleeve gastrectomy: Code(s): Z98.84 - Bariatric surgery status Category: Surgical (2) Portal vein thrombosis: Code(s): I81 - Portal vein thrombosis Category: Medical (3) LUQ pain: Code(s): R10.12 - Left upper quadrant pain Category: Medical Plan Ddx include PUD, gastritis/duodenitis, costochondritis vs lower rib syndrome veronica given reproducibility on palpation and changes in movement. Plan: - EGD to be booked - Start omeprazole 20 BID for now - Can use heating pad and topical analgesic in the interim - If EGD neg, can consider short term NSAIDs for possible MSK pain as above Medications: New omeprazole 20 mg PO BID 90 days 180 caps 0RF Coding Level of Care Code New Pt Level 4 (47118) Diagnoses S/P laparoscopic sleeve gastrectomy Z98.84 Portal vein thrombosis I81 LUQ pain R10.12
[2024-09-21 10:39] VITALS: BP 111/55; PULSE 81
== END 2024-09-21 11:29 | disposition home or self-care (01) ==
PROVIDERS: PCP Internal Medicine; Visit Provider Internal Medicine
DX: Z98.84 Bariatric surgery status (principal); I81 Portal vein thrombosis; R10.12 Left upper quadrant pain
CPT/HCPCS: 99204

== ENCOUNTER → 2024-09-21 10:34 | Outpatient (BNVA) | payer MEDICARE, MEDICAID, SELFPAY | PROVIDERS: PCP Internal Medicine; Visit Provider Internal Medicine | DX: R10.12 Left upper quadrant pain (principal); I81 Portal vein thrombosis; Z98.84 Bariatric surgery status | CPT/HCPCS: 99202 ==

== ENCOUNTER 2024-11-05 09:37 | Day surgery (SDC) | payer MEDICARE, MEDICAID, SELFPAY ==
--- NOTE | 2024-11-05 10:31 | MHC.SHP ---
Pre-Procedural Eval Section A - 24 Hr Update-Section A only Date of Service: 11/05/24 Section B - Complete if H&P > 30 days Chief Complaint: Left upper quadrant pain Details of Present Illness: Acute viral syndrome NIK (obstructive sleep apnea) Binge eating disorder DJD (degenerative joint disease) Stress incontinence PTSD (post-traumatic stress disorder) Anxiety Depression Nephrolithiasis Prediabetes Hyperlipidemia GERD (gastroesophageal reflux disease) Tachycardia Hypertension Morbid obesity History of deviated nasal septum Surgical History Hx of colonoscopy S/P gastric sleeve procedure Hx of arthroscopic knee surgery Hx of prior ablation treatment Hx of spinal surgery Present Medications: see Short Stay Collaborative assessment Allergies: Allergies Allergy/AdvReac Type Severity Reaction Status Date / Time sertraline [SERTRALINE] Allergy Unknown SLOWED Verified 05/22/24 12:25 BREATHING bupropion [From Wellbutrin] AdvReac Depression Verified 05/22/24 12:25 Review of Systems Review of Systems Comment: Ten point ROS negative Exam Exam Comment: Gen appear: No acute distress HEENT: no icterus Chest: No overt resp distress Abd: soft, nontender, nondistended Psych: Stable affect, answering questions appropriately Neuro: A/Ox3 noted to move all extremities spontaneously Ext: no peripheral edema Plan Diagnosis/Plan: Unchanged I have reviewed the history and physical and performed a pertinent physical examination on my patient. No changes have occurred unless specified. Time Spent With Patient Time: Total time managing care of this patient today ____ minutes.
[2024-11-05 10:57] VITALS: BP 114/58; PULSE 65; RESP 14; TEMP 36.8; O2SAT 96; BMI 40.8
[2024-11-05] MEDS: Lactated Ringers 1,000 ML 80 ML IVCONT (11:08)
--- NOTE | 2024-11-05 11:11 | HO.ANESPROP2 ---
HPI - Anesthesia Eval Consult details Narrative: for EGD PMFSH Active Problems Active Problems: All Active Problems (Updated 09/21/24 @ 11:22 by Debora Perez MD) LUQ pain (Acute) Greater trochanteric bursitis of both hips (Acute) Headache (Acute) Chronic lower back pain (Acute) Obesity (BMI 30-39.9) (Acute) Vitamin D deficiency (Acute) Major depress dis, severe (Acute) S/P laparoscopic sleeve gastrectomy (Acute) Portal vein thrombosis (Acute) Dysuria (Acute) NIK (obstructive sleep apnea) (Acute) DJD (degenerative joint disease) (Acute) Stress incontinence (Acute) PTSD (post-traumatic stress disorder) (Acute) Anxiety (Acute) Depression (Acute) Nephrolithiasis (Acute) Prediabetes (Acute) Hyperlipidemia (Acute) Tachycardia (Acute) Morbid obesity (Acute) Past Medical History Medical History Acute viral syndrome NIK (obstructive sleep apnea) Binge eating disorder DJD (degenerative joint disease) Stress incontinence PTSD (post-traumatic stress disorder) Anxiety Depression Nephrolithiasis Prediabetes Hyperlipidemia GERD (gastroesophageal reflux disease) Tachycardia Hypertension Morbid obesity History of deviated nasal septum Family History Family History Mother Depression Ovarian cancer in remission Hypertension Ovarian cancer Father Spine pain Deep vein thrombosis Seizure Hypertension Brother Migraines Son Obesity Son No problems noted. Maternal Grandmother Intestinal cancer Maternal Grandfather Colorectal cancer Maternal Aunt Breast cancer Ovarian cancer Maternal Aunt Ovarian cancer Maternal Aunt Ovarian cancer Family history of problems with anesthesia: No Surgical History Surgical History Hx of colonoscopy S/P gastric sleeve procedure Hx of arthroscopic knee surgery Hx of prior ablation treatment Hx of spinal surgery History of Problems with Anesthesia: No Social History Social History Household Members: Significant Other, Family and Children Housing: House Are you a primary animal care specialist to a significant other at home: No Do you presently have visiting nurse or other home services: No Alcohol intake: never Comment: ED Overflow Patient Tobacco Use Status: Former Tobacco user Tobacco use type: Cigarette Use of substances other than those prescribed or required for medical reasons: No Have you been hit, kicked, punched, or otherwise hurt by someone within the past year? If so, by whom?: No Advance Directives: No Advance Directives Information Provided: Yes Recently lost weight without trying: No Nutrition Risks: No Nutritional Risk Patient : No service: No Current occupational status: unemployed Meds Allergies Allergy/AdvReac Type Severity Reaction Status Date / Time sertraline [SERTRALINE] Allergy Unknown SLOWED Verified 11/05/24 10:55 BREATHING bupropion [From Wellbutrin] AdvReac Depression Verified 11/05/24 10:55 Active Medications: Current Medications Lactated Ringer's (Lr) 1,000 mls @ 80 mls/hr IVCONT .[id number] MICHEAL Last Admin: 11/05/24 11:08 Dose: 80 mls/hr Home Medications ?Medication ?Instructions ?Recorded ?Confirmed ?Last Taken ?Type oxycodone-acetaminophen 5 mg-325 1 tab PO Q6H PRN Pain 01/19/22 11/05/24 08/08/22 History mg tablet (Percocet) diazepam 5 mg tablet 2.5 mg PO DAILY PRN anxiety 05/29/22 01/22/24 08/08/22 History metoprolol succinate 25 mg 12.5 mg PO DAILY 05/20/23 11/05/24 Unknown History tablet,extended release 24 hr multivitamin 1 tab PO DAILY 10/25/23 11/05/24 Unknown History ipratropium bromide 21 mcg (0.03 intranasal 09/21/24 Unknown History %) nasal spray Exam Height,Weight and Vital Signs: Height 5 ft 6 in Weight 114.562 kg Last Vital Signs Temp 98.3 F 11/05/24 10:57 Pulse 65 11/05/24 10:57 Resp 14 11/05/24 10:57 BP 114/58 L 11/05/24 10:57 Pulse Ox 96 11/05/24 10:57 O2 Del Method Room Air 11/05/24 10:57 Airway Mallampati Class: I TM Dist: <=3cm Neck ROM: Full Loose/Missing/Broken Teeth: No Heart: ok. Lungs: ok. 96% ra. Assessment and Plan Assessment Anesthesia Assessment: Anesthesia Plan Discussed and Chart Reviewed Final Anesthetic Review Family History of Problems with Anesthesia: No History of Problems with Anesthesia: No NPO: Yes ASA Class: III Final Preanesthetic Review: No Changes in Pt Med Stat, Meds/Allgs Chart Reviewed, Consent Obtained/Reviewed and Anes Risks/Benef Reviewed Patient Risk: Intermediate Procedure Risk: Intermediate Anesthetic Plan Anesthetic Plan: Agree w/ Assess. and Plan and TIVA Disposition: Standard PACU
--- NOTE | 2024-11-05 11:38 | P.OP_ITS ---
Operative Note Operative Note Date of Service: 11/05/24 Narrative: Procedure: Esophagogastroduodenoscopy Endoscopist: Debora Perez MD Indication: Abd pain Anesthesia Provider: Michele Briggs MD Anesthesia Type: MAC ?? EGD Procedure:?? The procedure, indications, preparation and potential complications were reviewed with the patient, who indicated understanding and gave written informed consent to proceed. A physical exam was performed. The endoscope was introduced through the mouth, and advanced to the second part of duodenum. The mucosa was carefully examined on slow withdrawal of the endoscope. The patient tolerated the procedure well. There were no immediate complications.? ? EGD Findings:? * Esophagus:? Normal mucosa noted in the entire esophagus. The Z line was at 32 cm displaced by a hiatal hernia with the pinch at 36 cm. Middle and lower esophagus forceps biopsies were obtained to rule out eosinophilic esophagitis. * Stomach:? Normal mucosa was noted in the stomach. Stomach had a tubular appearance secondary to sleeve gastrectomy. Retroflexion was performed in the cardia with a Hill grade III hernia. Random cold forceps gastric biopsies were taken to rule out H Pylori infection. * Duodenum:? Normal mucosa was noted in the whole of the examined duodenum. Cold forceps biopsies were taken from duodenal bulb and second portion of the duodenum to rule out celiac sprue. ? EGD Impressions:? * Normal esophagus (biopsy) * s/p sleeve gastrectomy * Hiatal hernia * Normal stomach (biopsy) * Normal duodenum (biopsy) ?? Recommendations:?? * Follow biopsy results. Our office will call or send a letter with results within 7-10 days. * If H pylori +, patient will be prescribed eradication therapy followed by test of cure. * Avoid NSAIDs. * A barium swallow will be ordered as an outpatient to further evaluate the hiatal hernia. Above has been reviewed with the patient.
[2024-11-05 11:43] VITALS: BP 93/58; PULSE 63; RESP 17; TEMP 36.2; O2SAT 96
[2024-11-05 11:57] VITALS: BP 112/65; PULSE 68; RESP 17; TEMP 36.2; O2SAT 97
== END 2024-11-05 12:46 | disposition home or self-care (01) ==
PROVIDERS: PCP Internal Medicine; Visit Provider Internal Medicine
PROC: 0DJ08ZZ Inspection of Upper Intestinal Tract, Via Natural or Artificial Opening Endoscopic (ICD-10-PCS; CPT 43235; principal; 2024-11-05 10:40)
DX: K44.9 Diaphragmatic hernia without obstruction or gangrene (principal); K21.9 Gastro-esophageal reflux disease without esophagitis; Z98.84 Bariatric surgery status; Z90.3 Acquired absence of stomach [part of]; R10.12 Left upper quadrant pain; E11.9 Type 2 diabetes mellitus without complications; I10 Essential (primary) hypertension; E78.5 Hyperlipidemia, unspecified; G47.33 Obstructive sleep apnea (adult) (pediatric); Z87.891 Personal history of nicotine dependence; Z99.89 Dependence on other enabling machines and devices
CPT/HCPCS: 43239; 88305; 88313; 88342; J2003; J2704

== ENCOUNTER → 2024-11-05 09:37 | Outpatient (BNV) | payer MEDICARE, MEDICAID, SELFPAY | PROVIDERS: PCP Internal Medicine; Visit Provider Internal Medicine | DX: R10.12 Left upper quadrant pain (principal); Z90.3 Acquired absence of stomach [part of]; Z98.84 Bariatric surgery status | CPT/HCPCS: 43239 ==

== ENCOUNTER 2024-11-16 10:13 | Outpatient (AMB) | payer MEDICARE, MEDICAID, SELFPAY ==
--- NOTE | 2024-11-16 10:14 | A.OFFVIS_ITS ---
Intake Visit Reasons: S/P EGD; Dr. Perez Intake Note: Susu presents as a telehealth to go over results to EGD. CC: she states that she was told she has a hiatal hernia and wants to know what to do moving forward. Cad Drafter Required: No Allergies sertraline [SERTRALINE] Allergy (Unknown, Verified 11/05/24 10:55) SLOWED BREATHING bupropion [From Wellbutrin] Adverse Reaction (Verified 11/05/24 10:55) Depression HPI Comments Details: 53 y.o F with PMH of LSG 2021 c/b PVT s/p anticoagulation x 1 year (DC 04/2023) who is having LUQ pain x 1.5 months. Reports insiduous onset of sharp stabbing pain in LUQ x 4-6 weeks that is severe enough to wake her up from night. No relation to food or bowel movements that she has noted. It does however get aggaravated by laying down or turning side to side. Describes a popping sensation. Less bothersome when sitting up. No fevers or chills. No changes in appetite. Stools are formed no melena or hematochezia. Has tried peptobismol which did not help. Mat grandfather: esophageal ca and CRC 60s Last colo: [facility] 2022 - hyperplastic polyp. 11/05/24: * Normal esophagus (biopsy) * s/p sleeve gastrectomy * Hiatal hernia * Normal stomach (biopsy) * Normal duodenum (biopsy)?? Recommendations:?? * Follow biopsy results. Our office will call or send a letter with results within 7-10 days. * If H pylori +, patient will be prescribed eradication therapy followed by test of cure. * Avoid NSAIDs. * A barium swallow will be ordered as an outpatient to further evaluate the hiatal hernia. Path: A. Duodenum, biopsy: Duodenal mucosa within normal limits. B. Stomach, random, biopsy: Oxyntic mucosa with mild chronic inactive inflammation; no Helicobacter organisms seen. C. Esophagus, lower, biopsy: Squamous epithelium within normal limits; no inflammation seen. D. Esophagus, middle, biopsy: Squamous epithelium within normal limits; no inflammation seen. E. Stomach, nodule: Clinically nodular oxyntic mucosa with some features of fundic gland polyp; no Helicobacter organism seen. 11/16/24: Here as a televisit. Reports improvement in sx with omeprazole but developed ??oral sores so wonders if can be switched to a different med. Results of EGD reviewed. Pt aware of barium swallow. Depending on results, may need to be seen by surgery for ? revision if HH is significant. PFSH Medical History Acute viral syndrome NIK (obstructive sleep apnea) Binge eating disorder DJD (degenerative joint disease) Stress incontinence PTSD (post-traumatic stress disorder) Anxiety Depression Nephrolithiasis Prediabetes Hyperlipidemia GERD (gastroesophageal reflux disease) Tachycardia Hypertension Morbid obesity History of deviated nasal septum Surgical History Hx of endoscopy Hx of colonoscopy S/P gastric sleeve procedure Hx of arthroscopic knee surgery Hx of prior ablation treatment Hx of spinal surgery Family History Mother Depression Ovarian cancer in remission Hypertension Ovarian cancer Father Spine pain Deep vein thrombosis Seizure Hypertension Brother Migraines Son Obesity Son No problems noted. Maternal Grandmother Intestinal cancer Maternal Grandfather Colorectal cancer Maternal Aunt Breast cancer Ovarian cancer Maternal Aunt Ovarian cancer Maternal Aunt Ovarian cancer Social History Household Members: Significant Other, Family and Children Housing: House Are you a primary home care consultant to a significant other at home: No Do you presently have visiting nurse or other home services: No Alcohol intake: never Comment: ED Overflow Patient Tobacco Use Status: Former Tobacco user Tobacco use type: Cigarette service: No Current occupational status: unemployed Review of Systems Const All systems reviewed & are unremarkable except as noted in HPI and below Physical Exam Vital Signs: Video visit: No acute distress No icterus noted No facial asymmetry Speaking in full sentences Telehealth Telehealth Telehealth Platform: [facility] Location of provider rendering services: practice address Location of patient: address on file Patient Identification confirmed using: Name, : Yes Telehealth method: video Patient verbally consented to treatment: Yes Patient verbally consented to billing insurance company: Yes Patient informed of any privacy concerns related to visit: Yes Minutes spent on Phone/Video with Pt.: 12 Assessment & Plan Assessment & Plan (1) S/P laparoscopic sleeve gastrectomy: Code(s): Z98.84 - Bariatric surgery status Category: Surgical (2) LUQ pain: Code(s): R10.12 - Left upper quadrant pain Category: Medical (3) Hiatal hernia: Code(s): K44.9 - Diaphragmatic hernia without obstruction or gangrene Category: Medical Plan Normal EGD and bx. Barium swallow pending to assess for hiatal hernia. Will also help with anatomical assessment of sleeve gastrectomy as was able to retroflex during the EGD ? dilated sleeve. Plan: - Barium swallow ordered - Omeprazole DCed for report of mouth sores. Start famotidine 20 once daily instead. Follow up after barium swallow Medications: New famotidine 20 mg PO BEDTIME 90 tabs 1RF Discontinued omeprazole Discontinued Reason: Doctor's Order 20 mg PO BID 180 caps 0RF Coding Level of Care Code Tele Est Pt Level 4 (73280) Diagnoses S/P laparoscopic sleeve gastrectomy Z98.84 LUQ pain R10.12 Hiatal hernia K44.9
== END 2024-11-16 16:42 | disposition home or self-care (01) ==
LOC: HO.HGI 10:13
PROVIDERS: PCP Internal Medicine; Visit Provider Internal Medicine
DX: Z98.84 Bariatric surgery status (principal); R10.12 Left upper quadrant pain; K44.9 Diaphragmatic hernia without obstruction or gangrene
CPT/HCPCS: 99214

== ENCOUNTER 2025-01-26 09:27 | Outpatient (REF) | payer MEDICARE, MEDICAID, SELFPAY ==
--- NOTE | ~2025-01-26 | FL_ITS ---
EXAMINATION: XR FLUOROSCOPY UPPER GI SERIES CLINICAL INFORMATION: Diaphragmatic hernia without obstruction or gangrene. Prior gastric sleeve procedure. COMPARISON: 03/22/2022. TECHNIQUE: Fluoroscopic air contrast upper GI examination was performed utilizing standard techniques with thin and thick barium and effervescent granules. Numerous spot images were obtained. Several fluoroscopic image hold cine sequences were also obtained. FINDINGS: UPPER GI SERIES: Lateral cine images of the oropharynx and hypopharynx demonstrate normal swallow mechanism with normal epiglottic inversion and soft palate elevation. No laryngeal penetration, glottic or subglottic aspiration identified. No nasopharyngeal reflux present. Hypopharyngeal structures appear normal without evidence of mass or diverticulum. There was no significant cricopharyngeal achalasia. Dual and single contrast images of the esophagus demonstrate normal caliber, contour, and mucosal pattern. No evidence of stricture, mass, or ulcerations identified. Esophageal peristalsis was moderately disordered. There is a small to moderate-sized type I hiatus hernia. There was episodic gastroesophageal reflux to the level of the aortic arch. Dual contrast and single contrast images of the stomach demonstrated normal contour abnormality in keeping with prior gastric sleeve surgery. There are surgical dahlia along the greater curvature. Grossly normal mucosal and rugal fold pattern. No mass or ulcer. Contrast freely passed into the gastric antrum and duodenal bulb without delay. Single and air-contrast images of the duodenal bulb demonstrate no abnormality. The duodenal sweep has a normal appearance, course, and mucosal fold appearance. FLUOROSCOPY TIME: 2 minutes, 32 seconds Number of Spot Images:9 Number of cines obtained: 12 DOSE AREA PRODUCT: [id number] uGy-m2 (microgray-meter squared) FL/FL barium swallow with air IMPRESSION: 1. Moderately disordered esophageal peristalsis. 2. Small to moderate-sized type I hiatus hernia. 3. Contour abnormality of the stomach consistent with prior gastric sleeve procedure. 4. Episodic gastroesophageal reflux to the level of the aortic arch. Electronically signed by: Aurelio Quintero MD 01/26/2025 12:01 PM EDT
== END 2025-01-26 09:28 | disposition home or self-care (01) ==
LOC: HO.XRAY 09:27
PROVIDERS: Visit Provider Internal Medicine
DX: K44.9 Diaphragmatic hernia without obstruction or gangrene (principal)
CPT/HCPCS: 74221

== ENCOUNTER → 2025-01-26 09:29 | Outpatient (BNV) | payer MEDICARE, MEDICAID, SELFPAY | PROVIDERS: Visit Provider Radiology Diagnostic Radiology | DX: K44.9 Diaphragmatic hernia without obstruction or gangrene (principal) | CPT/HCPCS: 74221 ==